=== PATIENT | female | born 1955 | race Caucasian/White ===

== ENCOUNTER → 2020-08-29 10:30 | Outpatient (BNVA) | payer MEDICARE, MEDICAID, SELFPAY | PROVIDERS: Family Provider Family Medicine; PCP Nurse Practitioner Family; Visit Provider Nurse Practitioner Family | DX: E78.2 Mixed hyperlipidemia (principal); E55.9 Vitamin D deficiency, unspecified; M25.519 Pain in unspecified shoulder; M25.511 Pain in right shoulder; G89.29 Other chronic pain; Z68.39 Body mass index [BMI] 39.0-39.9, adult | CPT/HCPCS: 80053; 80061; 82306; 84439; 84443; 85025 ==

== ENCOUNTER → 2020-11-10 15:41 | Outpatient (BNVA) | payer MEDICARE, MEDICAID, SELFPAY | PROVIDERS: Family Provider Family Medicine; PCP Nurse Practitioner Family; Visit Provider Orthopaedic Surgery | DX: Z98.890 Other specified postprocedural states (principal); M18.10 Unilateral primary osteoarthritis of first carpometacarpal joint, unspecified hand; M25.511 Pain in right shoulder; Z46.89 Encounter for fitting and adjustment of other specified devices; M18.11 Unilateral primary osteoarthritis of first carpometacarpal joint, right hand | CPT/HCPCS: 73030; 73130; 97760; L3924 ==

== ENCOUNTER 2020-11-10 16:31 | Outpatient (CLI) | payer MEDICARE, MEDICAID, SELFPAY | END 2020-11-10 16:32 | disposition home or self-care (01) | LOC: SPT 16:32 | PROVIDERS: Family Provider Family Medicine; PCP Nurse Practitioner Family; Visit Provider Orthopaedic Surgery | DX: Z46.89 Encounter for fitting and adjustment of other specified devices (principal); M18.11 Unilateral primary osteoarthritis of first carpometacarpal joint, right hand | CPT/HCPCS: 97760; L3924 ==

== ENCOUNTER → 2021-07-30 16:36 | Outpatient (BNVA) | payer MEDICARE, MEDICAID, SELFPAY | PROVIDERS: Family Provider Family Medicine; PCP Nurse Practitioner Family; Visit Provider Nurse Practitioner Family | DX: R05 Cough (principal); R06.02 Shortness of breath; Z20.822 Contact with and (suspected) exposure to COVID-19 | CPT/HCPCS: 87635 ==

== ENCOUNTER → 2022-05-18 08:45 | Outpatient (BNVA) | payer MEDICARE, MEDICAID, SELFPAY | PROVIDERS: Family Provider Family Medicine; PCP Nurse Practitioner Family; Visit Provider Nurse Practitioner Family | DX: E78.2 Mixed hyperlipidemia (principal); E55.9 Vitamin D deficiency, unspecified | CPT/HCPCS: 80053; 80061; 82306; 84443 ==

== ENCOUNTER 2022-05-30 02:39 | Inpatient (IN) | payer MEDICARE, MEDICAID, SELFPAY ==
[2022-05-30] VITALS (20 sets, daily range): BP systolic 101–129; BP diastolic 55–77; PULSE 65–102; RESP 13–28; TEMP 36.4–37.2; O2SAT 90–96; BMI 32.1
--- NOTE | 2022-05-30 02:50 | XRR_ITS ---
PROCEDURE INFORMATION: Exam: XR Chest Exam date and time: 05/30/2022 2:54 AM Age: 66 years old Clinical indication: Shortness of breath; Patient HX: C/O SOB. History of copd. TECHNIQUE: Imaging protocol: Radiologic exam of the chest. Views: 1 view. COMPARISON: CR XR shoulder RT min 2V* [id number] 11/10/2020 3:47 PM FINDINGS: Lungs: An indistinct density is seen in the right upper hemithorax measuring 1.8 cm. Pleural spaces: There is opacification of the left mid and lower hemithorax likely secondary to probable combined left pleural effusion and superimposed infiltrate. Heart/Mediastinum: Unremarkable. No cardiomegaly. Bones/joints: Unremarkable. XR/XR chest 1V portable [id number] IMPRESSION: 1. The left cardiac border left hemidiaphragm is obscured likely secondary to a large left pleural effusion. Strandy opacities are seen in superimposed over the pleural effusion likely representing atelectasis and/or infiltrates. 2. Indistinct density seen in the right upper hemithorax measuring approximately 1.8 cm. Further evaluation with CT examination of the chest is suggested.
--- NOTE | 2022-05-30 02:50 | ECG_ITS ---
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 Measurements Intervals [place] Rate: 94 P: 45 NC: 144 QRS: -66 QRSD: 125 T: 29 QT: 358 QTc: 450 Interpretive Statements SINUS RHYTHM RIGHT BUNDLE BRANCH BLOCK [120+ ms QRS DURATION, UPRIGHT V1, 40+ ms S IN I/aVL/V4/V5/V6] LEFT ANTERIOR FASCICULAR BLOCK [QRS AXIS <= -45, QR IN I, RS IN II] POSSIBLE SEPTAL MYOCARDIAL INFARCTION , PROBABLY OLD [30 ms Q WAVE IN V1/V2] No previous ECG available for comparison Electronically Signed On 05-30-2022 20:59:00 CDT by Jemma Woods M.D. [email or web address]/[id number] f
--- NOTE | 2022-05-30 02:52 | ED_ITS ---
HPI - SOB/Dyspnea General: Chief Complaint: Shortness of Breath/Dyspnea Stated Complaint: SOB Time Seen by Provider: 05/30/22 02:43 Source: patient Mode of arrival: ambulatory Limitations: no limitations History of Present Illness: HPI Narrative: 66-year-old female has a history of COPD states that she has been having increasing shortness of breath of the last 2 days. States she had an exacerbation last week she has been on prednisone states that tonight she got much worse. She had a cough along with wheezing patient here is tachypneic and hypoxic at this time. She denies any chest pain or fevers. Associated symptoms: Deny abdominal pain, chest pain, fever(s), nausea or vomiting Review of Systems Const: Denies: fever(s), chills, body aches or change in appetite Eyes: Denies: blurry vision or eye discomfort ENMT: Denies: throat pain or dental pain Card: Denies: chest pain Resp: Reports: dyspnea and non-productive cough GI: Denies: abdominal pain, nausea, vomiting or diarrhea : Denies: dysuria Musc: Denies: neck pain or back pain Skin/Breast: Denies: rash Neuro: Denies: headache(s) Psych: Denies: depression Mir/Lymph: Denies: easy bruising All/Imm: Denies: urticaria PFSH ED PFSH: Medical History Anxiety Arthritis of both knees Asthma CAD (coronary artery disease) COPD (chronic obstructive pulmonary disease) Depressed Enrolled in chronic care management History of MRSA infection History of vitamin D deficiency Insomnia Mixed hyperlipidemia Shoulder pain Social History Smoking and tobacco status: current every day smoker cigarettes Packs smoked per day: 1 Alcohol intake: never Physical Exam Const: COMMON NORMALS: patient oriented x3 and healthy appearing GENERAL APPEARANCE: in distress and ill appearing HENMT: COMMON NORMALS: normocephalic and atraumatic HEAD & SCALP: normocephalic and atraumatic Eye: COMMON NORMALS: Equal, round and reactive pupils present and EOMs intact bilaterally PUPIL: Yes Equal, round and reactive pupils present Neck/C-Spine: COMMON NORMALS: full ROM and supple Chest: COMMONS NORMALS: normal inspection of the chest and normal palpation of entire chest wall Resp: COMMON NORMALS: No retractions EFFORT & INSPECTION: Yes tachypneic and Yes labored AUSCULTATION: diminished lung sounds on the left Cardio: COMMON NORMALS: regular rate, regular rhythm and No murmurs present ( Cardio) RATE: regular rate RHYTHM: regular rhythm GI: COMMON NORMALS: Normal to inspection, nondistended, normoactive bowel sounds present, Soft to palpation, non-tender and no masses PALPATION: Yes Soft to palpation Extremity: COMMON NORMALS: normal to inspection and full ROM Neuro: COMMON NORMALS: patient oriented x3, moves all extremities and no focal motor deficits Psych: COMMON NORMALS: mental status grossly normal, Normal thought process present and cooperative THOUGHT PROCESS: Normal thought process present Skin: COMMON NORMALS: no rashes or lesions noted and no wounds GENERAL SKIN EXAM: no rashes or lesions noted Course Vital Signs: Vital signs: Vital Signs Temperature 97.8 F 05/30/22 02:44 Pulse Rate 95 05/30/22 03:06 Respiratory Rate 28 H 05/30/22 04:04 Blood Pressure 124/73 05/30/22 02:44 Pulse Oximetry 93 05/30/22 03:06 MDM - SOB/Dyspnea Medical Decision Making Patient presents here with shortness of breath x-ray and CT found large pleural effusion along with mass concerning for cancer. Spoke to hospitalist will admit as patient is hypoxic here and dyspneic likely from the effusion could be infectious as well patient started on IV antibiotics. Lab Data : 05/30/22 02:58 05/30/22 02:58 Labs/Radiology: Radiology Impressions Chest X-Ray 05/30/22 02:50 IMPRESSION: 1. The left cardiac border left hemidiaphragm is obscured likely secondary to a large left pleural effusion. Strandy opacities are seen in superimposed over the pleural effusion likely representing atelectasis and/or infiltrates. 2. Indistinct density seen in the right upper hemithorax measuring approximately 1.8 cm. Further evaluation with CT examination of the chest is suggested. Chest CT 05/30/22 03:36 IMPRESSION: 1. There is a large left pleural effusion. Strandy and patchy opacities are seen within the left hemithorax superimposed over pleural effusion likely representing atelectasis although infiltrates and pneumonia cannot be entirely excluded. 2. Ill-defined soft tissue attenuation is seen in the upper hemithorax anteriorly on the left worrisome for a pulmonary mass. Measures approximately 6.4 x 5.2 x 4.7 cm. 3. There is a mildly irregular spiculated pulmonary nodularity seen in the right upper lobe that corresponds to the chest radiograph findings measuring 1.4 x 2.0 x 2.3 cm. In view of these findings, consider non-emergent PET/CT, or tissue sampling.(Reference: Daily) 4. Ill-defined hypoattenuation lesions seen within the liver highly suspicious for metastatic disease. Again, consider nonemergent PET-CT imaging. REFERENCES: Daily Benson, et al. Guidelines for Management of Incidental Pulmonary Nodules Detected on CT Images: From the Fleischner Society 2017. Radiology. 2017;284(1):228-243. ADDENDUM: 05/30/22 0433 CRITICAL RESULT: THIS REPORT CONTAINS FINDINGS THAT MAY BE CRITICAL TO PATIENT CARE. The findings were verbally communicated via telephone conference with GABRIELA Licea at 4:31 AM CDT on 05/30/2022. The findings were acknowledged and understood. Laboratory Results WBC 8.2 10^3/uL (4.0-10.0) 05/30/22 02:58 RBC 5.46 10^6/uL (4.1-5.3) H 05/30/22 02:58 Hgb 17.2 g/dL (11.5-15.3) H 05/30/22 02:58 Hct 52.5 % (37.0-47.0) H 05/30/22 02:58 MCV 96.2 fl (81-99) 05/30/22 02:58 MCH 31.5 pg (28.0-34.0) 05/30/22 02:58 MCHC 32.8 g/dL (30.0-36.0) 05/30/22 02:58 RDW 13.1 % (12.1-15.1) 05/30/22 02:58 Plt Count 259 10^3/cmm (130-400) 05/30/22 02:58 MPV 9.5 fL (7.4-10.4) 05/30/22 02:58 Neut % (Auto) 75.1 % 05/30/22 02:58 Lymph % (Auto) 16.6 % 05/30/22 02:58 Jackson % (Auto) 5.5 % 05/30/22 02:58 Eos % (Auto) 1.5 % 05/30/22 02:58 Baso % (Auto) 0.7 % 05/30/22 02:58 Neut # (Auto) 6.16 10^3/uL (1.8-7.7) 05/30/22 02:58 Lymph # (Auto) 1.4 10^3/uL (0.8-4.8) 05/30/22 02:58 Jackson # (Auto) 0.5 10^3/uL (0.2-0.9) 05/30/22 02:58 Eos # (Auto) 0.1 10^3/uL (0.0-0.8) 05/30/22 02:58 Baso # (Auto) 0.1 10^3/uL (0.0-0.1) 05/30/22 02:58 Nucleated RBC % (auto) 0 % 05/30/22 02:58 Nucleated RBCs # 0.0 /100WBC 05/30/22 02:58 Specimen Type Arterial 05/30/22 03:10 Sample Site Radial, left 05/30/22 03:10 ABG pH 7.43 (7.35-7.45) 05/30/22 03:10 ABG pCO2 42.5 mmHg (35-45) 05/30/22 03:10 ABG pO2 63.4 mmHg (80.0-100.0) L 05/30/22 03:10 ABG HCO3 28.3 mmol/L (22-26) H 05/30/22 03:10 ABG Base Excess 3.5 mmol/L (-2.0-2.0) H 05/30/22 03:10 Mihir Test Pos 05/30/22 03:10 Hematocrit 52.7 % (37-47) H 05/30/22 03:10 Hgb O2 Saturation 90.2 % (95-100) L 05/30/22 03:10 Carboxyhemoglobin 3.6 %THgb (0.4-20.1) 05/30/22 03:10 Methemoglobin 0.7 % (0.4-1.5) 05/30/22 03:10 Total Hemoglobin 17.2 g/dL (12-16) H 05/30/22 03:10 O2 Delivery Device Nc 05/30/22 03:10 O2 Liters/Min 3.0 % 05/30/22 03:10 FiO2 32.0 % 05/30/22 03:10 Television Journalist ID [email or web address] 05/30/22 03:10 Sodium 138 mmol/L (136-145) 05/30/22 02:58 Potassium 3.8 mmol/L (3.5-5.1) 05/30/22 02:58 Chloride 101 mmol/L (98-107) 05/30/22 02:58 Carbon Dioxide 26 mmol/L (22-29) 05/30/22 02:58 Anion Gap 14.8 (5-19) 05/30/22 02:58 BUN 16 mg/dL (8-23) 05/30/22 02:58 Creatinine 0.9 mg/dL (0.5-0.9) 05/30/22 02:58 GFR Calculation 62.8 mL/min (90-130) L 05/30/22 02:58 Glucose 118 mg/dL (65-115) H 05/30/22 02:58 Calculated Osmolality 288 mOsm/kg (285-295) 05/30/22 02:58 Calcium 8.9 mg/dL (8.5-10.5) 05/30/22 02:58 Total Bilirubin 0.4 mg/dL (0.15-1.2) 05/30/22 02:58 AST 16 U/L (0-32) 05/30/22 02:58 ALT 13 U/L (0-33) 05/30/22 02:58 Alkaline Phosphatase 102 IU/L (35-105) 05/30/22 02:58 NT-Pro-B Natriuret Pep 262 pg/mL (0-125) H 05/30/22 02:58 Total Protein 6.7 g/dL (6.6-8.7) 05/30/22 02:58 Albumin 3.2 g/dL (3.5-5.2) L 05/30/22 02:58 Globulin 3.5 g/dL (1.3-4.6) 05/30/22 02:58 SARS-CoV-2 Ag (Rapid) Negative (Negative) 05/30/22 03:00 EKG Data EKG 1: I personally reviewed and interpreted this EKG as follows: EKG Interpretation Date: 05/30/22 EKG interpretation time: 02:53 Interpretation: nsr hr [address] or t wave abnormalities qrs 125 qtc 410 Discharge Plan Discharge Patient Disposition: Admitted As Inpatient Clinical Impression: Pleural effusion, Lung mass, Hypoxia Condition: Stable Coding Level of Care Code ED Nuclear Control Room Operator for Chg Fwd Exam Comprehensive
[2022-05-30] MEDS: ipratropium-albuterol 3 mL Neb INHALATION ×4 (03:00→20:41)
[2022-05-30 03:11] LABS: Basophils # 0.1 10^3/uL (0.0-0.1); Basophils % 0.7 %; Eosinophils # 0.1 10^3/uL (0.0-0.8); Eosinophils % 1.5 %; Hematocrit 52.5 % (37.0-47.0); Hemoglobin 17.2 g/dL (11.5-15.3); Lymphocytes # 1.4 10^3/uL (0.8-4.8); Lymphocytes % 16.6 %; Mean Corpuscular HGB Conc 32.8 g/dL (30.0-36.0); Mean Corpuscular Hemoglobin 31.5 pg (28.0-34.0); Mean Corpuscular Volume 96.2 fl (81-99); Mean Platelet Volume 9.5 fL (7.4-10.4); Monocytes # 0.5 10^3/uL (0.2-0.9); Monocytes % 5.5 %; Neutrophils # 6.16 10^3/uL (1.8-7.7); Neutrophils % 75.1 %; Nucleated Red Blood Cells % 0 %; Platelet Count 259 10^3/cmm (130-400); Red Blood Count 5.46 10^6/uL (4.1-5.3); Red Cell Distribution Width 13.1 % (12.1-15.1); White Blood Count 8.2 10^3/uL (4.0-10.0)
[2022-05-30 03:30] LABS: SARS Covid-2 Antigen Negative (Negative)
--- NOTE | 2022-05-30 03:36 | CTR_ITS ---
PROCEDURE INFORMATION: Exam: CT Chest Without Contrast; Diagnostic Exam date and time: 05/30/2022 3:51 AM Age: 66 years old Clinical indication: Shortness of breath; Patient HX: C/O SOB. History of copd. RT lung abnormal density noted on cxr. TECHNIQUE: Imaging protocol: Diagnostic computed tomography of the chest without contrast. Radiation optimization: All CT scans at this facility use at least one of these dose optimization techniques: automated exposure control; mA and/or kV adjustment per patient size (includes targeted exams where dose is matched to clinical indication); or iterative reconstruction. COMPARISON: CR (CHEST, ) 05/30/2022 2:54 AM RADIATION DOSE METRICS: Total DLP (mGy-cm): 638.58 FINDINGS: Lungs: A calcified granuloma seen in the collapsed left lower lobe. An irregular mildly spiculated pulmonary nodularity is seen in the right upper lobe that corresponds to the chest radiograph findings measuring 1.4 x 2.0 x 2.3 cm. Pleural spaces: There is a large left pleural effusion. There are patchy and strandy opacities superimposed over the left pleural effusion compatible with atelectasis and or pneumonia. There is a soft tissue attenuation mass seen in the left upper hemithorax anteriorly that appears partially obscured by the large pleural effusion measuring approximately 5.2 x 4 7 x 6.4 cm. Heart: Unremarkable. No cardiomegaly. No pericardial effusion. Mild coronary artery calcifications Lymph nodes: Unremarkable. No enlarged lymph nodes. Vasculature: Unremarkable. No aortic aneurysm. Liver: There multiple ill-defined hypoattenuation lesions seen within the liver, findings worrisome for metastatic disease. Largest is seen in the right hepatic lobe measuring approximately 3 cm in diameter. Gallbladder and bile ducts: Status post cholecystectomy. Bones/joints: Unremarkable. No acute fracture. Soft tissues: Unremarkable. CT/CT chest wo con [id number] IMPRESSION: 1. There is a large left pleural effusion. Strandy and patchy opacities are seen within the left hemithorax superimposed over pleural effusion likely representing atelectasis although infiltrates and pneumonia cannot be entirely excluded. 2. Ill-defined soft tissue attenuation is seen in the upper hemithorax anteriorly on the left worrisome for a pulmonary mass. Measures approximately 6.4 x 5.2 x 4.7 cm. 3. There is a mildly irregular spiculated pulmonary nodularity seen in the right upper lobe that corresponds to the chest radiograph findings measuring 1.4 x 2.0 x 2.3 cm. In view of these findings, consider non-emergent PET/CT, or tissue sampling.(Reference: Daily) 4. Ill-defined hypoattenuation lesions seen within the liver highly suspicious for metastatic disease. Again, consider nonemergent PET-CT imaging. REFERENCES: Daily Benson, et al. Guidelines for Management of Incidental Pulmonary Nodules Detected on CT Images: From the Fleischner Society 2017. Radiology. 2017;284(1):228-243.
[2022-05-30 03:46] LABS: Alanine Aminotransferase 13 U/L (0-33); Albumin Level 3.2 g/dL (3.5-5.2); Alkaline Phosphatase 102 IU/L (35-105); Anion Gap 14.8 (5-19); Aspartate Amino Transferase 16 U/L (0-32); Blood Urea Nitrogen 16 mg/dL (8-23); Calcium 8.9 mg/dL (8.5-10.5); Carbon Dioxide 26 mmol/L (22-29); Chloride 101 mmol/L (98-107); Globulin 3.5 g/dL (1.3-4.6); Glomerular Filtration Rate 62.8 mL/min (90-130); Glucose 118 mg/dL (65-115); NT Pro B Type Natriuretic Pept 262 pg/mL (0-125); Osmolality Calculated 288 mOsm/kg (285-295); Potassium 3.8 mmol/L (3.5-5.1); Sodium 138 mmol/L (136-145); Total Bilirubin 0.4 mg/dL (0.15-1.2); Total Protein 6.7 g/dL (6.6-8.7)
[2022-05-30] MEDS: ondansetron 2 mg/ML SDV 2 mL 4 MG IVP (04:03)
[2022-05-30] MEDS: morphine 4 mg/mL SDV 1 mL IVP (04:04)
[2022-05-30] MEDS: cefTRIAXone 1,000 MG in sodium chloride 0.9% (plus) 50 ML 100 MG IV (04:28)
[2022-05-30] MEDS: azithromycin 500 MG in sodium chloride 0.9% 250 ML 250 MG IV (04:56)
--- NOTE | 2022-05-30 05:39 | PM.HP ---
Providers/Chief Complaint Admitting Physician: Hamilton Grimaldo Primary Care Provider: Tri Ludwig NP Chief Complaint: SOB History of Present Illness Very pleasant 66-year-old lady with COPD, asthma, CAD, long smoking history, other comorbidities, presented to the hospital for evaluation due to 3 days of shortness of breath, worse in the last night, with cough productive of clear sputum, mild to moderate frontal headache. Shortness of breath worse with exertion. She also reports lower back pain which has been going on for a while. She is not normally on supplemental oxygen. She states at home she uses a nebulizer. In ER she is noted saturating in mid to low 90s on 4 L. ABG 7.43/42.5/63.4. Rapid COVID-19 is negative. She is afebrile, without leukocytosis. Assessment with chest x-ray showed likely large left pleural effusion. Strandy opacities seen superimposed over the pleural effusion likely representing atelectasis and/or infiltrates. Indistinct density in right upper hemithorax measuring approximately 1.8 cm. This was then followed up with CT of the chest which showed large left pleural effusion with stranding and patchy opacities within hemithorax with superimposed lower pleural effusion likely present atelectasis although infiltrates and pneumonia cannot be excluded. Also ill-defined soft tissue attenuation in upper hemithorax on the left worrisome for pulmonary mass measuring 6.4 x 5.2 x 4.7 cm Also mildly irregular spiculated pulmonary nodularity in the right upper lobe corresponds to the chest radiograph finding measuring 1.4 x 2 x 2.3 cm. Also noted ill-defined hypoattenuation lesions within the liver highly suspicious for metastatic disease. Full details in the report. Review of Systems Const: Denies: fever(s), chills, body aches or malaise Eyes: Denies: change in vision, eye discomfort or eye redness ENMT: Denies: throat pain, oral sores or ear or mastoid pain Card: Reports: swelling of feet/ankles; Denies: chest pain, edema, pre-syncope or dyspnea on exertion Resp: Reports: dyspnea and productive cough; Denies: change in phlegm color or hemoptysis GI: Denies: abdominal pain, nausea, vomiting, diarrhea, constipation, hematochezia or melena : Denies: flank pain, urinary frequency or hematuria Musc: Reports: back pain; Denies: joint swelling or joint redness Skin/Breast: Denies: rash or new lesions Neuro: Reports: headache(s); Denies: numbness in extremities, weakness in extremities, dizziness, confusion or seizure-like activity Endo: Denies: polyuria or polydipsia Mir/Lymph: Denies: easy bleeding or tender lymph nodes All/Imm: Denies: urticaria or tongue swelling Medications/Allergies Home Medications Medication Instructions Recorded Confirmed Last Taken Type albuterol sulfate 90 mcg/actuation 2 puff INHALATION Q6H PRN 02/05/20 05/17/22 Unknown History aerosol inhaler (Ventolin HFA) coenzyme Q10 100 mg capsule 100 mg PO DAILY 02/05/20 05/17/22 Unknown History (CoQ-10) omega-3 fatty acids 1,000 mg 1,000 mg PO DAILY 02/05/20 05/17/22 Unknown History capsule (Fish Oil Concentrate) albuterol sulfate 2.5 mg (3 mL) INHALATION Q4H PRN 07/30/21 05/17/22 Unknown Rx #90 ml ibuprofen 800 mg tablet 800 mg PO Q8H PRN #90 tab 10/22/21 05/17/22 Unknown Rx magnesium citrate 300 ml PO DAILY PRN #296 ml 05/14/22 05/17/22 Unknown Rx omeprazole 40 mg capsule,delayed 40 mg PO DAILY 56 Days #60 cap 05/14/22 05/17/22 Unknown Rx release tiotropium 2.5 mcg-olodaterol 2.5 2 puff INHALATION DAILY #4 g 05/14/22 05/17/22 Unknown Rx mcg/actuation mist for inhalation (Stiolto Respimat) cholecalciferol (vitamin D3) 125 125 mcg PO DAILY #90 cap 05/21/22 Unknown Rx mcg (5,000 unit) capsule dapagliflozin 10 mg tablet 10 mg PO QAM #90 tab 05/21/22 Unknown Rx (Farxiga) ezetimibe 10 mg tablet 10 mg PO BEDTIME 05/30/22 05/30/22 Unknown History prednisone 10 mg tablet 10 mg PO DAILY 05/30/22 05/30/22 Unknown History rosuvastatin 40 mg tablet 40 mg PO BEDTIME 05/30/22 05/30/22 Unknown History Allergies Allergy/AdvReac Type Severity Reaction Status Date / Time celecoxib [From Celebrex] Allergy Intermediate ALGY-Rash Verified 05/17/22 13:26 Sulfa (Sulfonamide Allergy Intermediate ALGY-Rash Verified 05/17/22 13:26 Antibiotics) PFSH Acute PFSH: Medical History Anxiety Arthritis of both knees Asthma CAD (coronary artery disease) COPD (chronic obstructive pulmonary disease) Depressed Enrolled in chronic care management GERD (gastroesophageal reflux disease) History of MRSA infection History of vitamin D deficiency HLD (hyperlipidemia) Insomnia Mixed hyperlipidemia Shoulder pain Smoking addiction Surgical History H/O lumpectomy History of bilateral tubal ligation History of D&C History of knee surgery Hx of cholecystectomy Hx of tonsillectomy Family History Father CAD (coronary artery disease) HI (mitral incompetence) COPD (chronic obstructive pulmonary disease) Mother Cancer Social History Smoking and tobacco status: current every day smoker cigarettes Packs smoked per day: 1 Alcohol intake: never Substance/Drug Use: never Lives independently: Yes Household members: spouse Marital status: Vitals/I&O/Wt Last Vital Signs Temp 97.8 F 05/30/22 02:44 Pulse 84 05/30/22 04:50 Resp 26 H 05/30/22 04:50 BP 126/66 05/30/22 04:50 Pulse Ox 94 05/30/22 04:50 05/29/22 05/29/22 05/30/22 14:59 22:59 06:59 Intake Total 50 / 50 Balance 50 / 50 Weight last 48 hrs Weight 72.121 kg Physical Exam Narrative: at bedside Const: COMMON NORMALS: alert GENERAL APPEARANCE: cooperative NUTRITIONAL APPEARANCE: obese ORIENTATION/CONSCIOUSNESS: Yes awake HENMT: COMMON NORMALS: normocephalic, EAC's normal, Normal external nose present and moist oral mucous membranes HEAD & SCALP: normocephalic NOSE: Normal external nose present EXTERNAL AUDITORY CANAL: EAC's normal Neck/C-Spine: COMMON NORMALS: no meningeal signs Chest: CHEST: Yes Symmetrical chest wall rise Resp: COMMON NORMALS: clear to auscultation bilaterally AUSCULTATION: diminished lung sounds on the left in the lower lung matias Cardio: COMMON NORMALS: regular rate, regular rhythm and No murmurs present (Cardio) RATE: regular rate RHYTHM: regular rhythm GI: COMMON NORMALS: Normal to inspection, nondistended, normoactive bowel sounds present, Soft to palpation and non-tender PALPATION: Yes Soft to palpation Extremity: GENERAL: Yes edema (1+) Neuro: COMMON NORMALS: moves all extremities SENSORIUM/ORIENTATION: Yes alert MENINGEAL SIGNS: Yes no meningeal signs Psych: COMMON NORMALS: mental status grossly normal Skin: COMMON NORMALS: no wounds RASHES: no rashes Data : 05/30/22 02:58 05/30/22 02:58 Micro: Microbiology 05/30/22 04:31 Blood Culture - Preliminary Blood SPECIMEN COLLECTED 05/30/22 04:21 Blood Culture - Preliminary Blood SPECIMEN COLLECTED A&P Assessment and plan (1) Acute respiratory failure with hypoxia: With shortness of breath, cough, clear sputum production, hypoxia on presentation, ABG 7.43/42.5/63.4 on 3 L nasal cannula. Currently on 4 L saturations 94%. Multifactorial acute respiratory failure with hypoxia with large left-sided pleural effusion. Atelectasis. Cannot exclude also possible superimposed pneumonia. Lung lesions suspicious for new diagnosis of malignancy. Rapid COVID-19 is negative. Continue oxygen support. She and her are agreeable to consultation and additional evaluation with pulmonology. Discussed with pulmonology, for now continue to antibiotics for possible infection and monitor her response and condition with thoracentesis possibly today or tomorrow, then if infection is under bronchoscopy could possibly be done on Tuesday. She is not on anticoagulation. For now we will request sputum culture, urine bacterial antigens. MRSA PCR. Continue empiric antibiotics for possible pneumonia with ceftriaxone, azithromycin. With possible asthma and COPD exacerbation as she is reported to have had wheezing. Cough productive of sputum which is clear. Continue IV steroids for now. Breathing treatments. Discussed findings with her and her . They had a few questions but certainly it is a lot to process. Encouraged them to ask more if any, as her condition and diagnostic process and management evolve. DVT prophylaxis with SCD for now, anticoagulation for now not yet started pending possible procedures. Status: Acute (2) Pleural effusion: Large left pleural effusion, possibly related to possible metastatic lung malignancy. Possibly parapneumonic. As above. Check TSH. Status: Acute (3) Lung mass: New lung lesions suspicious for possible malignancy, with liver lesions suspicious for possibly metastatic disease. Additional evaluation as above. Status: Acute (4) COPD (chronic obstructive pulmonary disease): Possibly with exacerbation due to cough, dyspnea, production of clear sputum. Continue IV steroids for now. Taper off based on response. Status: Acute (5) Asthma: Possible exacerbation with reported wheezing, although appears to have improved with breathing treatment as I did not appreciate wheezing during my visit. Continue as above. Status: Acute (6) Liver lesion: Incidentally noted liver lesions, concerning for possible metastatic disease. Status: Acute (7) Smoking addiction: Encourage cessation. Nicotine replacement as needed. Status: Acute Plan Headache: Tylenol as needed. Additional work-up of possible metastatic lung malignancy. Lower back pain: Again will need additional evaluation for possible metastatic disease. Symptomatic management for now. Lidocaine patch. Tylenol. Capsaicin as needed. CAD Depression HLD Arthritis Other comorbidities. Attestations Medical Necessity Statement*: Admission of over 2 midnights is anticipated for assessment and management of acute respiratory failure with hypoxia, large pleural effusion, possible pneumonia, COPD and asthma exacerbation, new lesions suspicious for malignancy, possibly metastatic lung cancer. Coding Level of Care Code Acute Credit Department Manager for Echo Nicolas Diagnoses Pleural effusion J90 Acute respiratory failure with hypoxia J96.01 Lung mass R91.8 COPD (chronic obstructive pulmonary disease) J44.9 Asthma J45.909 Smoking addiction F17.200 Liver lesion K76.9
[2022-05-30 06:41] LABS: Thyroid Stimulating Hormone 2.99 uIU/mL (0.27-4.20)
[2022-05-30] MEDS: pantoprazole DR 40 mg Tablet PO (09:23)
[2022-05-30] MEDS: lidocaine 5% Patch 1 PATCH TOPICAL (09:23)
--- NOTE | 2022-05-30 14:28 | PM.MISC ---
Miscellaneous Note Purpose of Documentation: Mini progress note Note: Patient seen today and examined. She is on 2 L nasal cannula. Lungs clear to auscultation bilaterally with mild rhonchi at bases. She is a smoker. Had history of lung cancer in her mother. There is evidence of metastatic disease on her CAT scan. Plan for bronchoscopy and thoracentesis in a.m. Pulmonology already on board. We will recheck labs in AM. N.p.o. at midnight today. Daughter at bedside updated. Rest of management as per history and physical document. Patient comfortable at this time and has no concerns or complaints.
[2022-05-30 15:51] LABS: ABG PH Result 7.43 (7.35-7.45); Arterial Blood Gas Hematocrit 52.6 % (37-47); Base Excess ABG 3.7 mmol/L (-2.0-2.0); HCO3 ABG 28.6 mmol/L (22-26); Methemoglobin 0.8 % (0.4-1.5); PO2 ABG 64.9 mmHg (80.0-100.0)
[2022-05-30 15:52] LABS: Blood Gas Allen Test Pos; Blood Gas Sample Site Radial, left; Blood Gas Sample Type Arterial; Carboxyhemoglobin 3.6 %THgb (0.4-20.1); Oxygen Device NC; Total Hemoglobin 17.2 g/dL (12-16)
[2022-05-30] MEDS: atorvastatin 40 mg Tablet 80 MG PO (20:57)
[2022-05-30] MEDS: HYDROcodone-acetaminophen 5-325 mg Tablet 1 TAB PO (20:57)
[2022-05-30] MEDS: ezetimibe 10 mg Tablet PO (20:57)
[2022-05-31] VITALS (11 sets, daily range): BP systolic 104–135; BP diastolic 57–71; PULSE 71–96; RESP 15–22; TEMP 35.8–36.7; O2SAT 87–96
[2022-05-31] MEDS: azithromycin 500 MG in sodium chloride 0.9% 250 ML 250 MG IV (02:51)
[2022-05-31] MEDS: cefTRIAXone 1,000 MG in sodium chloride 0.9% (plus) 50 ML 100 MG IV (02:53)
[2022-05-31] MEDS: ipratropium-albuterol 3 mL Neb INHALATION ×4 (03:28→21:08)
[2022-05-31 04:48] LABS: Basophils % 0.1 %; Hemoglobin 15.6 g/dL (11.5-15.3); Lymphocytes # 0.6 10^3/uL (0.8-4.8); Lymphocytes % 5.6 %; Mean Corpuscular HGB Conc 31.2 g/dL (30.0-36.0); Mean Corpuscular Volume 99.2 fl (81-99); Mean Platelet Volume 9.8 fL (7.4-10.4); Monocytes # 0.3 10^3/uL (0.2-0.9); Monocytes % 3.1 %; Neutrophils % 90.5 %; Nucleated Red Blood Cells % 0 %; Platelet Count 247 10^3/cmm (130-400); Red Blood Count 5.04 10^6/uL (4.1-5.3); White Blood Count 10.3 10^3/uL (4.0-10.0)
[2022-05-31 05:14] LABS: Alanine Aminotransferase 16 U/L (0-33); Albumin Level 3.2 g/dL (3.5-5.2); Alkaline Phosphatase 104 IU/L (35-105); Anion Gap 14.4 (5-19); Aspartate Amino Transferase 14 U/L (0-32); Blood Urea Nitrogen 18 mg/dL (8-23); Calcium 9.3 mg/dL (8.5-10.5); Carbon Dioxide 28 mmol/L (22-29); Chloride 102 mmol/L (98-107); Globulin 3.2 g/dL (1.3-4.6); Glucose 115 mg/dL (65-115); Osmolality Calculated 293 mOsm/kg (285-295); Potassium 4.4 mmol/L (3.5-5.1); Sodium 140 mmol/L (136-145); Total Bilirubin 0.2 mg/dL (0.15-1.2); Total Protein 6.4 g/dL (6.6-8.7)
[2022-05-31] MEDS: pantoprazole DR 40 mg Tablet PO (08:22)
[2022-05-31] MEDS: acetaminophen 325 mg Tablet 650 MG PO (08:22)
[2022-05-31] MEDS: lidocaine 5% Patch 1 PATCH TOPICAL ×2 (08:24→22:40)
--- NOTE | 2022-05-31 09:29 | US_ITS ---
WS: [id number] ULTRASOUND-GUIDED THORACENTESIS CLINICAL INFORMATION: lung ca with lef plural effusion COMPARISON: None. PROCEDURE: Informed consent: The risks, benefits, and alternatives of the procedure were discussed with the andrea ent. Verbal and written consent was obtained. Timeout: A timeout was performed to confirm the correct patient, procedure, and site. Site: LEFT chest Preparation: A suitable skin site was identified. The patient was prepped and draped in usual sterile fashion. Lidocaine 1% was used for local anesthesia. Catheter: 4 Italian One-Step catheter. Fluid Volume: 1000 ml Color: Clear yellow 50 cc sent to the laboratory for further analysis. Complications: None No pneumothorax on the postthoracentesis radiograph. US/ thoracentesis [id number] IMPRESSION: Uncomplicated ultrasound-guided thoracentesis.
--- NOTE | 2022-05-31 09:53 | PC.CHAP ---
Pastoral Care Encounter/Spiritual Assessment Type of Contact [] Declined cinnamon grinder visit [] Patient/Family/Request visit [] Outpatient visit [] Follow-up visit [] Physician referral [] Code/Alert [x] Routine visit [] Staff referral [] Actively dying [] Patient sleeping [] Family support [] [] Out of room [] Palliative care [] [] Receiving care in room [] Pre-surgical visit [] Trauma [] Long length of stay [] ICU visit [] Other: Relational/Emotional Strength [x] Patient feels connected with others/family/visitors/staff [] Distress [] Loneliness/isolation [] Abandonment Spirituality of Patient [x] Person of Prabha [] Attends Restorationism of their Prabha [x] Believes in Prayer [] Reads Bible or Moravian materials [] There are Spiritual issues to be addressed Unbundler Interventions [x] Prayer [x] Active listening [x] Non-anxious presence [] Spiritual/emotional support [] Crisis/trauma care [] Spiritual counseling [] Bereavement support [] Provided bereavement packet [] Provided Bible/devotional materials [] Provided toy/stuffed animal, coloring book to patient or family member [] Provided Communion [] Anointing/[place] [] Salvation [x] Completed spiritual assessment [] Other: Impact on Illness or Injury [] Angry [] Fearful [] Anxious [] Often cries [] Exhaustion [] Unable to work [] Unable to attend adventism [] Unable to walk/stand [] Unable to read [] Unable to drive [] Unable to eat/drink [] Unable to sleep [] Unable to be with family [] Patient intubated [] Other: Summary Time spent with patient 10 min
[2022-05-31 11:58] LABS: INR 0.95 (0.8-1.2)
[2022-05-31] MEDS: CLONazepam 0.5 mg Tablet PO (12:12)
[2022-05-31] MEDS: docusate sodium 100 mg Capsule PO ×2 (12:12→18:05)
[2022-05-31] MEDS: polyethylene glycol 3350 Pkt 17 gm PO (12:14)
--- NOTE | 2022-05-31 13:01 | P.PN_ITS ---
Subjective Subjective: Patient was seen this morning, daughter is at bedside, she sitting up to the side of the bed, complaining of shortness of breath, is on 3 L, IN detail discussed patient's pleural effusion, concerns for lung malignancy on her CT scan, discussed the need for tissue diagnosis, she also has a large pleural effusion with adjacent lung changes concerning for pneumonia discussed plans on thoracocentesis, potentially avoiding bronchoscopy if cancer cells can be identified in her pleural fluid, discussed bronchoscopy, daughter and patient voiced understanding, all questions answered, agreed to proceed Vitals/I&O/Wt Last Vital Signs Temp 98.1 F 05/31/22 07:59 Pulse 75 05/31/22 08:20 Resp 20 H 05/31/22 08:16 BP 115/71 05/31/22 07:59 Pulse Ox 91 05/31/22 08:16 05/30/22 05/31/22 05/31/22 22:59 06:59 14:59 Intake Total 240 / 740 300 / 300 Output Total 500 / 500 Balance 240 / 740 -500 / 240 300 / 300 Weight last 48 hrs Weight 89.993 kg Weight 72.121 kg Physical Exam Const: COMMON NORMALS: no acute distress and patient oriented x3 Resp: COMMON NORMALS: normal respiratory effort, No retractions, No use of accessory muscles and clear to auscultation bilaterally AUSCULTATION: clear to auscultation bilaterally Cardio: COMMON NORMALS: regular rate, regular rhythm, S1 normal heart sound present and S2 normal heart sound present RATE: regular rate RHYTHM: regular rhythm HEART SOUNDS: S1 normal heart sound present and S2 normal heart sound present GI: COMMON NORMALS: Normal to inspection, nondistended, normoactive bowel sounds present, Soft to palpation and non-tender PALPATION: Yes Soft to palpation Extremity: COMMON NORMALS: no pedal edema Neuro: COMMON NORMALS: patient oriented x3 Psych: COMMON NORMALS: mental status grossly normal Data : 05/31/22 03:55 05/31/22 03:55 Micro: Microbiology 05/30/22 04:31 Blood Culture - Preliminary Blood NEGATIVE TO DATE 05/30/22 04:21 Blood Culture - Preliminary Blood NEGATIVE TO DATE 05/30/22 10:32 MRSA Culture - Final Nose 05/30/22 12:53 Bacterial Antigens - Final Urine,Voided 05/30/22 12:53 Legionella Urinary Antigen - Final Urine,Voided A&P Assessment and plan (1) Acute respiratory failure with hypoxia: With shortness of breath, cough, clear sputum production, hypoxia on presentation, ABG 7.43/42.5/63.4 on 3 L nasal cannula. Currently on 4 L saturations 94%. Multifactorial acute respiratory failure with hypoxia with large left-sided pleural effusion. Atelectasis. Cannot exclude also possible superimposed pneumonia. Lung lesions suspicious for new diagnosis of malignancy. Rapid COVID-19 is negative. Continue oxygen support. Discussed with pulmonology, for now continue to antibiotics for possible infection and monitor her response and condition with thoracentesis possibly today or tomorrow, then if infection is under bronchoscopy could possibly be done on Tuesday. She is not on anticoagulation. For now we will request sputum culture, urine bacterial antigens. MRSA PCR. Continue empiric antibiotics for possible pneumonia with ceftriaxone, azithromycin. With possible asthma and COPD exacerbation as she is reported to have had wheezing. Cough productive of sputum which is clear. Continue IV steroids for now. Breathing treatments. Discussed findings with her and her . They had a few questions but certainly it is a lot to process. Encouraged them to ask more if any, as her condition and diagnostic process and management evolve. Proceeding with thoracocentesis Bronchoscopy pending pleural fluid analysis DVT prophylaxis with SCD for now, anticoagulation for now not yet started pending possible procedures. Status: Acute (2) Pleural effusion: Large left pleural effusion, possibly related to possible metastatic lung malignancy. Possibly parapneumonic. As above. Status: Acute (3) Lung mass: New lung lesions suspicious for possible malignancy, with liver lesions suspicious for possibly metastatic disease. Additional evaluation as above. Status: Acute (4) COPD (chronic obstructive pulmonary disease): Possibly with exacerbation due to cough, dyspnea, production of clear sputum. Continue IV steroids for now. Taper off based on response. Status: Acute (5) Asthma: Possible exacerbation with reported wheezing, although appears to have improved with breathing treatment as I did not appreciate wheezing during my visit. Continue as above. Status: Acute (6) Liver lesion: Incidentally noted liver lesions, concerning for possible metastatic disease. Status: Acute (7) Smoking addiction: Encourage cessation. Nicotine replacement as needed. Status: Acute Plan Headache: Tylenol as needed. Additional work-up of possible metastatic lung malignancy. Lower back pain: Again will need additional evaluation for possible metastatic disease. Symptomatic management for now. Lidocaine patch. Tylenol. Capsaicin as needed. CAD Depression HLD Arthritis Other comorbidities. Attestations Medical Necessity Statement*: Patient requires hospitalization for shortness of breath multifactorial requiring thoracocentesis, IV antibiotics, steroids Coding Level of Care Code Acute Internet Sales Manager for Chg Fwd Diagnoses Acute respiratory failure with hypoxia J96.01 Pleural effusion J90 Lung mass R91.8 COPD (chronic obstructive pulmonary disease) J44.9 Asthma J45.909 Liver lesion K76.9 Smoking addiction F17.200
--- NOTE | 2022-05-31 14:12 | XR_ITS ---
WS: [id number] Exam: XR chest 1V portable [id number] Date/Time of Exam: 05/31/2022 2:15 PM Reason For Exam: post thoracentesis Comparison 05/30/2022. Decreased left-sided pleural effusion secondary to thoracentesis. No pneumothorax is seen. Soft tissu e mass seen at the left suprahilar region that may represent atelectasis or pulmonary neoplasm. Conso lidation of lung parenchyma could have similar appearance. Residual left-sided pleural effusion. A 2 cm spiculated nodule is seen in the upper lobe of the right lung. Regional bony elements are intact. The heart does not appear to be enlarged. Anchoring screws in both proximal humeri. XR/XR chest 1V portable [id number] IMPRESSION: 1. Decreased left pleural effusion secondary to thoracentesis. No pneumothorax. 2. Soft tissue density seen at the left suprahilar region that may represent at electatic lung or a mass. 3. Spiculated nodule seen in the upper lobe of the right lung.
[2022-05-31 15:18] LABS: Color, Pleural Fluid Amber (Pale Yellow)
[2022-05-31 15:19] LABS: Appearance, Pleural Fluid CLOUDY (CLEAR)
[2022-05-31 15:20] LABS: Mononuclear %, Pleural Fluid 91 %; Polynuclear Cells, Pleural % 9 %
[2022-05-31 15:24] LABS: Creatinine Body Fluid 0.83 (0.5-0.9); Pleural Fluid Albumin 2.3 g/dL; Total Protein Pleural Fluid 3.8 g/dL; Triglycerides, Pleural Fluid 49 mg/dL
[2022-05-31 15:25] LABS: LDH Pleural Fluid 489 U/L
[2022-05-31 16:19] LABS: PATH Referal YES
[2022-05-31 16:21] LABS: Cyto Order Verification Order Verified
[2022-05-31] MEDS: ezetimibe 10 mg Tablet PO (22:38)
[2022-05-31] MEDS: atorvastatin 40 mg Tablet 80 MG PO (22:38)
[2022-06-01] VITALS (10 sets, daily range): BP systolic 122–136; BP diastolic 70–79; PULSE 65–89; RESP 17–20; TEMP 36.6–36.7; O2SAT 86–97; BMI 40.0
[2022-06-01] MEDS: ipratropium-albuterol 3 mL Neb INHALATION ×2 (04:34→08:40)
[2022-06-01 04:58] LABS: Basophils % 0.1 %; Hematocrit 52.5 % (37.0-47.0); Hemoglobin 16.8 g/dL (11.5-15.3); Lymphocytes # 1.2 10^3/uL (0.8-4.8); Lymphocytes % 9.1 %; Mean Corpuscular Volume 96.9 fl (81-99); Mean Platelet Volume 9.7 fL (7.4-10.4); Monocytes # 0.4 10^3/uL (0.2-0.9); Monocytes % 3.4 %; Neutrophils # 10.92 10^3/uL (1.8-7.7); Neutrophils % 86.7 %; Nucleated Red Blood Cells % 0 %; Platelet Count 246 10^3/cmm (130-400); Red Blood Count 5.42 10^6/uL (4.1-5.3); Red Cell Distribution Width 12.8 % (12.1-15.1); White Blood Count 12.6 10^3/uL (4.0-10.0)
[2022-06-01 05:22] LABS: Alanine Aminotransferase 18 U/L (0-33); Albumin Level 3.5 g/dL (3.5-5.2); Alkaline Phosphatase 103 IU/L (35-105); Anion Gap 13.8 (5-19); Aspartate Amino Transferase 14 U/L (0-32); Blood Urea Nitrogen 21 mg/dL (8-23); Calcium 9.5 mg/dL (8.5-10.5); Carbon Dioxide 32 mmol/L (22-29); Chloride 99 mmol/L (98-107); Globulin 3.1 g/dL (1.3-4.6); Glomerular Filtration Rate 62.8 mL/min (90-130); Glucose 110 mg/dL (65-115); Osmolality Calculated 294 mOsm/kg (285-295); Potassium 4.8 mmol/L (3.5-5.1); Sodium 140 mmol/L (136-145); Total Bilirubin 0.2 mg/dL (0.15-1.2); Total Protein 6.6 g/dL (6.6-8.7)
[2022-06-01] MEDS: cefTRIAXone 1,000 MG in sodium chloride 0.9% (plus) 50 ML 50 MG IV (05:32)
[2022-06-01] MEDS: azithromycin 500 MG in sodium chloride 0.9% 250 ML 250 MG IV (05:33)
[2022-06-01] MEDS: polyethylene glycol 3350 Pkt 17 gm PO (08:34)
[2022-06-01] MEDS: docusate sodium 100 mg Capsule PO (08:34)
[2022-06-01] MEDS: pantoprazole DR 40 mg Tablet PO (08:34)
[2022-06-01] MEDS: lidocaine 5% Patch 1 PATCH TOPICAL (08:35)
--- NOTE | 2022-06-01 14:03 | P.DS_ITS ---
Discharge Providers Date of Admission: 05/30/22 04:32 Date of Discharge: June 01, 2022 Attending Provider at Admission: Hamilton Grimaldo Attending Provider at Discharge: Ruperto Woods MD Primary Care Provider: Tri Ludwig NP Diagnoses at Discharge Discharge Diagnosis (1) Acute respiratory failure with hypoxia: Status: Acute (2) Pleural effusion: Status: Acute (3) Lung mass: Status: Acute (4) COPD (chronic obstructive pulmonary disease): Status: Acute (5) Asthma: Status: Acute (6) Liver lesion: Status: Acute (7) Smoking addiction: Status: Acute Reason for Visit Reason for Visit: SOB Hospital Course Hospital Course This is a 66-year-old female with a past medical history of COPD, smoking, asthma, anxiety, depression, who presents to [facility] for shortness of breath Patient was admitted to [facility] for acute respiratory failure with hypoxia secondary to COPD exacerbation, possible underlying pneumonia, received broad-spectrum antibiotic, steroid therapy, oxygen therapy. Discharged home with steroid burst, doxycycline, oxygen therapy with close follow-up with primary care provider as outpatient Patient was found to have a large left pleural effusion, status post thoracocentesis, 1 L drained, patient clinically improved in terms of her shortness of breath Patient was found to have 1. There is a large left pleural effusion. Strandy and patchy opacities are seen within the left hemithorax superimposed over pleural effusion likely representing atelectasis although infiltrates and pneumonia cannot be entirely excluded. 2. Ill-defined soft tissue attenuation is seen in the upper hemithorax anteriorly on the left worrisome for a pulmonary mass. Measures approximately 6.4 x 5.2 x 4.7 cm. 3. There is a mildly irregular spiculated pulmonary nodularity seen in the right upper lobe that corresponds to the chest radiograph findings measuring 1.4 x 2.0 x 2.3 cm. In view of these findings, consider non-emergent PET/CT, or tissue sampling.(Reference: Daily) 4. Ill-defined hypoattenuation lesions seen within the liver highly suspicious for metastatic disease. Again, consider nonemergent PET-CT imaging. -Findings concerning for lung cancer, with radiographic evidence of metastasis -She underwent thoracocentesis, findings of thoracocentesis revealed atypical cells, positive for malignancy, metastatic malignancy, further immunohistochemic al stains and ancillary studies have been performed pending results -I discussed with patient her findings, she voiced understanding, all questions answered, agreed to proceed for further evaluation, testing, and consideration of treatment -Plan is for her to follow-up with hematology oncology within a week, follow-up to determine what type of lung malignancy she has, further testing including PET scan, she also follow-up with pulmonary in 1 week Physical Exam Const: COMMON NORMALS: no acute distress and patient oriented x3 Resp: COMMON NORMALS: normal respiratory effort, No retractions, No use of accessory muscles and clear to auscultation bilaterally AUSCULTATION: clear to auscultation bilaterally Cardio: COMMON NORMALS: regular rate, regular rhythm, S1 normal heart sound present and S2 normal heart sound present RATE: regular rate RHYTHM: regular rhythm HEART SOUNDS: S1 normal heart sound present and S2 normal heart sound present GI: COMMON NORMALS: Normal to inspection, nondistended, normoactive bowel chapo nds present, Soft to palpation and non-tender PALPATION: Yes Soft to palpation Extremity: COMMON NORMALS: no pedal edema Neuro: COMMON NORMALS: patient oriented x3 Psych: COMMON NORMALS: mental status grossly normal Discharge Data Studies Completed and Pending Completed Studies During Hospitalization Category Date Time Status CT chest wo con [id number] Urgent Cat Scan 05/30/22 03:36 Completed XR chest 1V portable [id number] Stat Exams 05/31/22 14:12 Completed XR chest 1V portable [id number] Urgent Exams 05/30/22 02:50 Completed US thoracentesis [id number] Routine Ultrasound 05/31/22 09:29 Completed Pending at discharge Category Date Time Status Blood Culture Stat Lab 05/30/22 04:31 Results Body Fluid Culture & GS Routine Lab 05/31/22 13:45 Results Complete Blood Count w/Auto AM LABS Lab 06/02/22 04:00 Ordered Comprehensive Metabolic Panel AM LABS Lab 06/02/22 04:00 Ordered Mycobacteria, Culture w/Fluor Routine Lab 05/31/22 13:45 Received Sputum Culture and Gram Stain Routine Lab 05/30/22 06:04 Uncollected Cytology [PTH] Routine Pth 05/31/22 09:29 Received Radiology Impressions Chest CT 05/30/22 03:36 IMPRESSION: 1. There is a large left pleural effusion. Strandy and patchy opacities are seen within the left hemithorax superimposed over pleural effusion likely representing atelectasis although infiltrates and pneumonia cannot be entirely excluded. 2. Ill-defined soft tissue attenuation is seen in the upper hemithorax anteriorly on the left worrisome for a pulmonary mass. Measures approximately 6.4 x 5.2 x 4.7 cm. 3. There is a mildly irregular spiculated pulmonary nodularity seen in the right upper lobe that corresponds to the chest radiograph findings measuring 1.4 x 2.0 x 2.3 cm. In view of these findings, consider non-emergent PET/CT, or tissue sampling.(Reference: Daily) 4. Ill-defined hypoattenuation lesions seen within the liver highly suspicious for metastatic disease. Again, consider nonemergent PET-CT imaging. REFERENCES: Daily Benson, et al. Guidelines for Management of Incidental Pulmonary Nodules Detected on CT Images: From the Fleischner Society 2017. Radiology. 2017;284(1):228-243. ADDENDUM: 05/30/22 0433 CRITICAL RESULT: THIS REPORT CONTAINS FINDINGS THAT MAY BE CRITICAL TO PATIENT CARE. The findings were verbally communicated via telephone conference with GABRIELA Licea at 4:31 AM CDT on 05/30/2022. The findings were acknowledged and understood. Thoracentesis Ultrasound 05/31/22 09:29 IMPRESSION: Uncomplicated ultrasound-guided thoracentesis. Chest X-Ray 05/31/22 14:12 IMPRESSION: 1. Decreased left pleural effusion secondary to thoracentesis. No pneumothorax. 2. Soft tissue density seen at the left suprahilar region that may represent atelectatic lung or a mass. 3. Spiculated nodule seen in the upper lobe of the right lung. Laboratory Results WBC 12.6 10^3/uL (4.0-10.0) H 06/01/22 04:32 RBC 5.42 10^6/uL (4.1-5.3) H 06/01/22 04:32 Hgb 16.8 g/dL (11.5-15.3) H 06/01/22 04:32 Hct 52.5 % (37.0-47.0) H 06/01/22 04:32 MCV 96.9 fl (81-99) 06/01/22 04:32 MCH 31.0 pg (28.0-34.0) 06/01/22 04:32 MCHC 32.0 g/dL (30.0-36.0) 06/01/22 04:32 RDW 12.8 % (12.1-15.1) 06/01/22 04:32 Plt Count 246 10^3/cmm (130-400) 06/01/22 04:32 MPV 9.7 fL (7.4-10.4) 06/01/22 04:32 Neut % (Auto) 86.7 % 06/01/22 04:32 Lymph % (Auto) 9.1 % 06/01/22 04:32 Davis % (Auto) 3.4 % 06/01/22 04:32 Eos % (Auto) 0.0 % 06/01/22 04:32 Baso % (Auto) 0.1 % 06/01/22 04:32 Neut # (Auto) 10.92 10^3/uL (1.8-7.7) H 06/01/22 04:32 Lymph # (Auto) 1.2 10^3/uL (0.8-4.8) 06/01/22 04:32 Davis # (Auto) 0.4 10^3/uL (0.2-0.9) 06/01/22 04:32 Eos # (Auto) 0.0 10^3/uL (0.0-0.8) 06/01/22 04:32 Baso # (Auto) 0.0 10^3/uL (0.0-0.1) 06/01/22 04:32 Nucleated RBC % (auto) 0 % 06/01/22 04:32 Total Counted Not Reportable 05/31/22 13:45 Nucleated RBCs # 0.0 /100WBC 06/01/22 04:32 Differential Comment Cancelled 05/31/22 13:45 PT 13.00 SECONDS (12.1-14.9) 05/31/22 11:15 INR 0.95 (0.8-1.2) 05/31/22 11:15 Specimen Type Arterial 05/30/22 03:10 Sample Site Radial, left 05/30/22 03:10 ABG pH 7.43 (7.35-7.45) 05/30/22 03:10 ABG pCO2 43.0 mmHg (35-45) 05/30/22 03:10 ABG pO2 64.9 mmHg (80.0-100.0) L 05/30/22 03:10 ABG HCO3 28.6 mmol/L (22-26) H 05/30/22 03:10 ABG Base Excess 3.7 mmol/L (-2.0-2.0) H 05/30/22 03:10 Mihir Test Pos 05/30/22 03:10 Hematocrit 52.6 % (37-47) H 05/30/22 03:10 Hgb O2 Saturation 90.0 % (95-100) L 05/30/22 03:10 Carboxyhemoglobin 3.6 %THgb (0.4-20.1) 05/30/22 03:10 Methemoglobin 0.8 % (0.4-1.5) 05/30/22 03:10 Total Hemoglobin 17.2 g/dL (12-16) H 05/30/22 03:10 O2 Delivery Device Nc 05/30/22 03:10 O2 Liters/Min 3.0 % 05/30/22 03:10 FiO2 32.0 % 05/30/22 03:10 Groundwater Programs Director ID [email or web address] 05/30/22 03:10 Sodium 140 mmol/L (136-145) 06/01/22 04:32 Potassium 4.8 mmol/L (3.5-5.1) 06/01/22 04:32 Chloride 99 mmol/L (98-107) 06/01/22 04:32 Carbon Dioxide 32 mmol/L (22-29) H 06/01/22 04:32 Anion Gap 13.8 (5-19) 06/01/22 04:32 BUN 21 mg/dL (8-23) 06/01/22 04:32 Creatinine 0.9 mg/dL (0.5-0.9) 06/01/22 04:32 GFR Calculation 62.8 mL/min (90-130) L 06/01/22 04:32 Glucose 110 mg/dL (65-115) 06/01/22 04:32 Calculated Osmolality 294 mOsm/kg (285-295) 06/01/22 04:32 Calcium 9.5 mg/dL (8.5-10.5) 06/01/22 04:32 Total Bilirubin 0.2 mg/dL (0.15-1.2) 06/01/22 04:32 AST 14 U/L (0-32) 06/01/22 04:32 ALT 18 U/L (0-33) 06/01/22 04:32 Alkaline Phosphatase 103 IU/L (35-105) 06/01/22 04:32 NT-Pro-B Natriuret Pep 262 pg/mL (0-125) H 05/30/22 02:58 Total Protein 6.6 g/dL (6.6-8.7) 06/01/22 04:32 Albumin 3.5 g/dL (3.5-5.2) 06/01/22 04:32 Globulin 3.1 g/dL (1.3-4.6) 06/01/22 04:32 TSH 2.99 uIU/mL (0.27-4.20) 05/30/22 04:31 Fluid Color Cancelled 05/31/22 13:45 Fluid Appearance Cancelled 05/31/22 13:45 Fluid WBC Cancelled 05/31/22 13:45 Fluid RBC Cancelled 05/31/22 13:45 Fluid Hematocrit 0.0 % 05/31/22 13:45 Fluid Tot Cell Count Cancelled 05/31/22 13:45 Fld Polynuclear WBCs # Cancelled 05/31/22 13:45 Fld Polynuclear WBCs % Cancelled 05/31/22 13:45 Fl Mononucl WBCs #(Auto) Cancelled 05/31/22 13:45 Fl Mononuclear % Auto Cancelled 05/31/22 13:45 Fluid Albumin Cancelled 05/31/22 13:45 Fluid Creatinine 0.83 (0.5-0.9) 05/31/22 13:45 Pleural Color Ana (Pale Yellow) H 05/31/22 13:45 Pleural Appearance Cloudy (CLEAR) 05/31/22 13:45 Pleural pH 8.00 (6.5-7.5) H 05/31/22 13:45 Pleural WBC 97.000 /uL (0-1000) 05/31/22 13:45 Pleural RBC 4.000 10^3/uL 05/31/22 13:45 Pleural Other Cells Not Reportable 05/31/22 13:45 Pleural Polynuclear % 9 % 05/31/22 13:45 Pleural Mononuclear % 91 % 05/31/22 13:45 Pleural Total Protein 3.8 g/dL 05/31/22 13:45 Pleural Albumin 2.3 g/dL 05/31/22 13:45 Pleural LDH 489 U/L 05/31/22 13:45 Pleural Glucose 160.0 mg/dL 05/31/22 13:45 Pleural Amylase 61.0 U/L 05/31/22 13:45 Pleural Triglycerides 49 mg/dL 05/31/22 13:45 SARS-CoV-2 Ag (Rapid) Negative (Negative) 05/30/22 03:00 Path Cons w/Slide Yes 05/31/22 13:45 Vitals Last Vital Signs Temp 98.1 F 06/01/22 11:24 Pulse 89 06/01/22 11:24 Resp 18 06/01/22 11:24 BP 123/70 06/01/22 11:24 Pulse Ox 92 06/01/22 11:24 Discharge Plan Discharge Patient Disposition: Home Condition: Stable Prescriptions: New docusate sodium 100 mg Capsule 100 mg PO BID 30 Days Qty: 60 0RF fluticasone propion-salmeterol [Advair Diskus] 250-50 mcg/dose blister with device 1 inh inhalation BID Qty: 60 0RF prednisone 20 mg tablet 20 mg PO BID 7 Days Qty: 14 0RF doxycycline hyclate 100 mg tablet 100 mg PO BID 7 Days Qty: 14 0RF nicotine 21 mg/24 hr patch 24 hour 1 patch transdermal DAILY Qty: 28 0RF Incruse Ellipta 62.5 mcg/actuation blister with device 1 inh inhalation DAILY Qty: 30 0RF Continued coenzyme Q10 [CoQ-10] 100 mg capsule 100 mg PO DAILY 0RF albuterol sulfate [Ventolin HFA] 90 mcg/actuation HFA aerosol inhaler 2 puff INHALATION Q6H PRN (Reason: Shortness Of Breath) 0RF albuterol sulfate 2.5 mg /3 mL (0.083 %) solution for nebulization 2.5 mg inhalation Q4H PRN (Reason: shortness of breath or wheezing) Qty: 90 1RF omeprazole 40 mg capsule,delayed release(DR/EC) 40 mg PO DAILY 56 Days Qty: 60 0RF magnesium citrate Solution 300 ml PO DAILY PRN (Reason: constipation) Qty: 296 0RF cholecalciferol (vitamin D3) 125 mcg (5,000 unit) capsule 125 mcg PO DAILY Qty: 90 3RF Farxiga 10 mg tablet 10 mg PO QAM Qty: 90 3RF ezetimibe 10 mg tablet 10 mg PO BEDTIME 0RF rosuvastatin 40 mg tablet 40 mg PO BEDTIME 0RF Discontinued omega-3 fatty acids [Fish Oil Concentrate] 1,000 mg capsule 1,000 mg PO DAILY 0RF Stiolto Respimat 2.5-2.5 mcg/actuation mist 2 puff inhalation DAILY Qty: 4 11RF ibuprofen 800 mg tablet 800 mg PO Q8H PRN (Reason: pain) Qty: 90 11RF prednisone 10 mg tablet 10 mg PO DAILY 0RF Discharge Orders: Discharge Order (Routine); Ordered 06/01/22 Ordered By: Ruperto Woods Other Ambulatory Orders: DME: Oxygen (Order) Location: None Selected Ordered By: Ruperto Woods Referrals: Geraldo Reeder MD [Physician] - 1 week Liv Ramirez MD [Staff Physician] - 4-7 days Tri Ludwig NP [Primary Care Provider] - 1-3 days (needs cxray) Discharge Diet: Cardiac Discharge Activity: Resume usual activity Patient Instructions: Opioid Safety Activity Restrictions/Additional Instructions: - Please stop smoking -Please use oxygen as prescribed, do not smoke around oxygen -Please stay away from any gas powered equipment when on oxygen -Take prednisone burst as prescribed -Take antibiotics as prescribed -Use Incruse, and Advair as prescribed -Albuterol as needed for shortness of breath -If you have any fevers, worsening cough go to the emergency room -Please see your primary care provider on at least Tuesday for repeat chest x- ray, follow-up pleural effusion -Please see hematology oncology next week -Please see pulmonary in the least a 1 week -Please hand wash, facemask, social distancing Discharge Attestations Time Spent in Discharge Care*: less than 30 min Quality Metrics Clinical Quality Measures [ No reported AMI, CVA or VTE this stay] Coding Level of Care Code Acute Chg FW DC note Diagnoses Acute respiratory failure with hypoxia J96.01 Pleural effusion J90 Lung mass R91.8 COPD (chronic obstructive pulmonary disease) J44.9 Asthma J45.909 Liver lesion K76.9 Smoking addiction F17.200
--- NOTE | 2022-06-01 14:34 | PC.NURSE ---
Discharge Note Patient discharged to home via private vehicle accompanied by family. Discharge instructions reviewed with patient and/or lead generation representative. Mobile pharmacy medications and/or prescriptions provided. Belongings/home medications returned.
== END 2022-06-01 14:38 | disposition home or self-care (01) | DRG 180 ==
LOC: ER 04:40 → MEDSURG 05:32
PROVIDERS: Admitting Provider Internal Medicine; Emergency Provider Emergency Medicine; PCP Nurse Practitioner Family; Visit Provider Family Medicine
DX: C34.90 Malignant neoplasm of unspecified part of unspecified bronchus or lung (principal); J18.9 Pneumonia, unspecified organism; J96.01 Acute respiratory failure with hypoxia; J44.0 Chronic obstructive pulmonary disease with (acute) lower respiratory infection; J45.901 Unspecified asthma with (acute) exacerbation; C78.7 Secondary malignant neoplasm of liver and intrahepatic bile duct; J91.0 Malignant pleural effusion; J44.1 Chronic obstructive pulmonary disease with (acute) exacerbation; F41.9 Anxiety disorder, unspecified; I25.10 Atherosclerotic heart disease of native coronary artery without angina pectoris; F32.A Depression, unspecified; Z86.14 Personal history of Methicillin resistant Staphylococcus aureus infection; E78.2 Mixed hyperlipidemia; F17.210 Nicotine dependence, cigarettes, uncomplicated; M54.50 Low back pain, unspecified; Z79.51 Long term (current) use of inhaled steroids
CPT/HCPCS: 32555; 36415; 36600; 71045; 71250; 80053; 80503; 82042; 82150; 82570; 82805; 82945; 83615; 83880; 83986; 84157; 84443; 84478; 85014; 85025; 85610; 86403; 87015; 87040; 87070; 87075; 87116; 87205; 87206; 87426; 87449; 87641; 87801; 88305; 88342; 89050; 93005; 94640; 94664; 94760; 96365; 96367; 96375; 99285; J0456; J0696; J2270; J2405; J2920; J2930; J7050

== ENCOUNTER → 2022-06-04 11:55 | Outpatient (BNVA) | payer MEDICARE, MEDICAID, SELFPAY | PROVIDERS: PCP Nurse Practitioner Family; Visit Provider Nurse Practitioner Family | DX: J90 Pleural effusion, not elsewhere classified (principal) | CPT/HCPCS: 71046 ==

== ENCOUNTER → 2022-06-10 09:52 | Outpatient (BNVA) | payer MEDICARE, MEDICAID, SELFPAY | PROVIDERS: PCP Nurse Practitioner Family; Visit Provider Internal Medicine Critical Care Medicine | DX: C34.90 Malignant neoplasm of unspecified part of unspecified bronchus or lung (principal); J90 Pleural effusion, not elsewhere classified; J44.9 Chronic obstructive pulmonary disease, unspecified; F17.210 Nicotine dependence, cigarettes, uncomplicated | CPT/HCPCS: 99205 ==

== ENCOUNTER → 2022-06-16 08:42 | Outpatient (BNVA) | payer MEDICARE, MEDICAID, SELFPAY | PROVIDERS: PCP Nurse Practitioner Family; Visit Provider Surgery | DX: C34.90 Malignant neoplasm of unspecified part of unspecified bronchus or lung (principal); Z95.828 Presence of other vascular implants and grafts | CPT/HCPCS: 99203 ==

== ENCOUNTER 2022-06-16 16:00 | Oncology outpatient (recurring) (ONCR) | payer MEDICARE, MEDICAID, SELFPAY ==
[2022-06-16] MEDS: iohexol 350 mg/mL 100 mL Btl IV (15:15)
--- NOTE | 2022-06-16 16:00 | CT_ITS ---
WS: [id number] CT HEAD TECHNIQUE: Noncontrast and contrast-enhanced CT of the head. CLINICAL INFORMATION: Staging COMPARISON: None. DLP: 2043.[address] scans at [facility] use at least one of these dose optimization techniques: automated e xposure control; mA and/or kV adjustment per patient size (includes targeted exams where dose is matc hed to clinical indication); or iterative reconstruction. FINDINGS: No evidence of intracranial hemorrhage or mass effect. Mild small vessel changes. Mild parenchymal vo lume loss. Intracranial vascular calcification. No abnormal intracranial enhancement. No evidence of enhancing intracranial metastatic disease. Paran chelsea sinuses and mastoid air cells are well aerated. No other significant findings. CT/CT head wo/w con [id number] IMPRESSION: 1. No evidence of intracranial hemorrhage or mass effect. 2. No evidence of enhancing intracranial metastatic disease. 3. Intracranial vascular calcification. 4. Mild small vessel changes with mild parenchymal volume loss.
== END 2022-07-07 23:59 | disposition home or self-care (01) ==
LOC: ONCMED 06-17 06:12
PROVIDERS: PCP Nurse Practitioner Family; Visit Provider Internal Medicine Hematology & Oncology
DX: C34.90 Malignant neoplasm of unspecified part of unspecified bronchus or lung (principal); Z87.891 Personal history of nicotine dependence; Z53.9 Procedure and treatment not carried out, unspecified reason; Z95.828 Presence of other vascular implants and grafts
CPT/HCPCS: 70470; 99203; 99204

== ENCOUNTER → 2022-06-18 11:16 | Day surgery (SDC) | payer MEDICARE, MEDICAID, SELFPAY ==
[2022-06-17 13:27] VITALS: BMI 38.3
[2022-06-18 11:44] VITALS: BP 130/88; PULSE 101; RESP 24; TEMP 36.1; O2SAT 97
--- NOTE | 2022-06-18 12:35 | XR_ITS ---
WS: [id number] XR chest 1V portable [id number] REASON FOR EXAM: post thoracentesis FINDINGS: Near complete opacification of the left hemithorax with small amount of aerated left upper lung which demonstrates diffuse interstitial reticular opacity. Central air bronchograms. Patient is rotated ho wever no significant mediastinal shift is noted. No air is identified in the left pleural space. Right lower lung demonstrates several small linear opacities. XR/XR chest 1V portable [id number] IMPRESSION: Near complete opacification of the left hemithorax which appears to be due to p leural fluid and presumed compressive atelectasis of the left lung. There is mo re opacification of the left chest than on the last comparison examination of .
[2022-06-18 12:39] VITALS: BP 123/67; PULSE 84; RESP 18; O2SAT 95
--- NOTE | 2022-06-18 16:03 | P.PCN_ITS ---
Procedure/Consent Time out: Time Out Performed: Yes Consent: Consent for Procedure: Consent obtained from patient Procedure Narrative: Name of the procedure: Left sided thoracentesis under ultrasound guidance. Indication: Malignant pleural effusion Anesthetics: Local anesthesia with 1% lidocaine. 10 mL. IV pain medication: None. Description of the procedure: The procedure was explained to the patient in d etail including the risks and a consent was obtained. The left hemithorax was scanned with ultrasound to find a safe fluid pocket. Moderate amount of fluid with loculation was identified. Following identification of the fluid pocket the site was marked. The site was cleaned using sterile technique. Lidocaine 1% was injected into the skin and the subcutaneous tissue. Subsequently, the periosteum in the parietal pleural was also anesthetized using lidocaine. The pleural space was entered in the posterior axillary line in the left seventh intercostal space. Serosanguineous fluid was aspirated. About 1400 cc of fluid was aspirated. Postprocedure chest x-ray did not show any pneumothorax. There was opacification of the left hemithorax which was worse than the previous x-rays however this is likely secondary to loculated pleural fluid. There was no mediastinal shift to the right. In fact, there was some mediastinal shift to the left likely secondary to atelectasis. Acute Procedures Epistaxis Control: Time out performed: Yes
== END ==
LOC: GILAB 11:18
PROVIDERS: PCP Nurse Practitioner Family; Visit Provider Internal Medicine Critical Care Medicine
PROC: (CPT 32554; principal; 2022-06-18 12:30)
DX: C80.1 Malignant (primary) neoplasm, unspecified (principal); J91.0 Malignant pleural effusion
CPT/HCPCS: 32554; 71045

== ENCOUNTER 2022-06-22 05:35 | Day surgery (SDC) | payer MEDICARE, MEDICAID, SELFPAY ==
[2022-06-22] VITALS (8 sets, daily range): BP systolic 92–106; BP diastolic 59–89; PULSE 90–111; RESP 12–20; TEMP 36.3–36.6; O2SAT 94–97
--- NOTE | 2022-06-22 | SCC_ITS ---
Procedure done: 1.Placement of PowerPort via right subclavian vein 2.Fluoroscopic guidance and interpretation for placement of catheter 11.9 seconds of fluoroscopic guidance, for a cumulative dose of 3.29 mGy, was provided to Dr. Baumann by the radiology department. C-arm images of the chest were saved for the patient's permanent record. [facility]
--- NOTE | 2022-06-22 05:53 | SC_ITS ---
WS: [id number] Exam: C-arm FL for CVA [id number] Date/Time of Exam: 06/22/2022 5:53 AM Reason For Exam: Powerport Placement Limited C-arm image of the upper right chest is submitted for evaluation. A right-sided subclavian port has been placed and appears to end in the lower one third of the SVC. N o other significant finding identified on this limited study.
--- NOTE | 2022-06-22 06:21 | W.PM.OPSUD ---
Surgery/Procedure H&P Update DATE OF PROCEDURE: June 22, 2022 DATE H&P PERFORMED: 06/16/22 H&P UPDATE INFORMATION: I have reviewed H&P completed within last 30 days, I have examined patient prior to procedure and No changes to prior documentation PREOP DIAGNOSIS: Lung cancer PRIMARY INDICATION FOR PROCEDURE: The same PLANNED PROCEDURE: Operation Date: 06/22/22 07:00 Proposed Procedures p placement of port a cath [id number],Z95.828,C34.90(Not Applicable) - Tree Baumann MD
[2022-06-22] MEDS: sodium chloride 0.9% 1,000 ML 30 ML IV (06:29)
--- NOTE | 2022-06-22 06:40 | ANES.PREANE2 ---
Pre-Anesthetic Assessment Height/Weight: Height 1.5 m Weight 86.183 kg Pulse Resp Pulse Ox O2 Del Method O2 Flow Rate 111 H 20 H 95 4 06/22/22 05:56 06/22/22 05:56 06/22/22 05:56 06/22/22 05:56 06/22/22 05:56 Preop Diagnosis: Lung cancer Operation Date: 06/22/22 07:00 Proposed Procedures p placement of port a cath [id number],Z95.828,C34.90(Not Applicable) - Tree Baumann MD Familial anesthetic complications: None Was Beta Marian taken within 24 hours: N/A Was Clonidine taken within 24 hours: N/A Last intake: Intake Last Liquid Date 06/21/22 Last Liquid Time 19:00 Last Solid Date 06/21/22 Last Solid Time 18:00 Social Tobacco and No alcohol Exam alert, oriented x 3, clear to auscultation bilaterally and regular rate & rhythm Airway Mallampati: Class III Dentition: other (no teeth) Pulmonary Chronic Obstructive Pulmonary Disease (3- 4 L NC) L Pleural effusion, Small cell lung cancer CV/HEM Coronary Artery Disease and Hypertension GI Gastroesophageal Reflux Disease Metabolic Morbid Obesity Anesthetic Plan ASA status: 4 Anesthesia: MAC Risk of > 500 ml blood loss (7ml/kg in children): No Medications/Allergies Home Medications Medication Instructions Recorded Confirmed Last Taken Type omeprazole 40 mg capsule,delayed 40 mg PO DAILY 8 weeks #60 caps 05/14/22 06/22/22 06/21/22 Rx release ezetimibe 10 mg tablet (Zetia) 10 mg PO BEDTIME 05/30/22 06/22/22 06/21/22 History rosuvastatin 40 mg tablet 40 mg PO BEDTIME 05/30/22 06/22/22 06/21/22 History docusate sodium 100 mg capsule 100 mg PO DAILY 06/10/22 06/22/22 06/21/22 History furosemide 20 mg tablet (Lasix) 20 mg PO DAILY PRN edema 30 days 06/10/22 06/22/22 06/21/22 Rx #30 tabs levalbuterol HCl 0.63 mg/3 mL 0.63 mg (3 mL) inhalation TID PRN 06/10/22 06/22/22 06/21/22 Rx solution for nebulization shortness of breath or wheezing 30 days #270 mL cholecalciferol (vitamin D3) 125 1 unit PO 06/14/22 06/18/22 06/21/22 History mcg (5,000 unit) capsule tiotropium 2.5 mcg-olodaterol 2.5 2 puff inhalation DAILY #4 grams 06/16/22 06/22/22 06/22/22 Rx mcg/actuation mist for inhalation (Stiolto Respimat) allopurinol 100 mg tablet 100 mg PO BID 06/18/22 06/21/22 Unknown History (Zyloprim) Allergies Allergy/AdvReac Type Severity Reaction Status Date / Time celecoxib [From Celebrex] Allergy Intermediate ALGY-Rash Verified 06/18/22 06:18 Sulfa (Sulfonamide Allergy Intermediate ALGY-Rash Verified 06/18/22 06:18 Antibiotics) Current Medications Generic Name Dose Route Start Last Admin Trade Name Freq PRN Reason Stop Dose Admin Sodium Chloride 1,000 mls @ 30 mls/hr 06/22/22 06:00 06/22/22 06:29 Sodium Chloride 0.9% IV 06/23/22 05:59 30 mls/hr .Q24H LEÓN Administration PFSH Anesthesia Medical History Anxiety Arthritis of both knees Asthma CAD (coronary artery disease) COPD (chronic obstructive pulmonary disease) Depressed Enrolled in chronic care management GERD (gastroesophageal reflux disease) History of MRSA infection History of vitamin D deficiency HLD (hyperlipidemia) Insomnia Mixed hyperlipidemia Shoulder pain Small cell lung cancer Smoking addiction Surgical History H/O lumpectomy History of bilateral tubal ligation History of D&C History of knee surgery Hx of cholecystectomy Hx of tonsillectomy Family History Father CAD (coronary artery disease) NM (mitral incompetence) COPD (chronic obstructive pulmonary disease) Lung disease Mother Cancer Lung disease Other Diabetes Hyperlipidemia Denies family history of Clotting disorder Dementia Psychiatric illness Chronic kidney disease (CKD) Suicide Anesthesia complication Bleeding disorder Hypertension Stroke Social History Smoking and tobacco status: former smoker (quit 15 days ago ) Alcohol intake: never Lives independently: Yes Household members: spouse Marital status: Data Anesthesia : 06/22/22 06:18 Cardiac Studies: No Data to Display
[2022-06-22] MEDS: ceFAZolin 2,000 MG in sodium chloride 0.9% (plus) 50 ML 100 MG IV (07:00)
[2022-06-22] MEDS: heparin, porcine 1,000 unit/mL INJ 10 mL 10000 UNIT INJECTION (07:26)
--- NOTE | 2022-06-22 07:46 | P.OP_ITS ---
Operative Report Date of procedure: June 22, 2022 Pre-op diagnosis: Preop Diagnosis Lung cancer Post-op diagnosis: The same Procedure done: 1.Placement of PowerPort via right subclavian vein 2.Fluoroscopic guidance and interpretation for placement of catheter Surgeon: Tree Baumann MD Loom Operator Apprentice: Jesus Manuel Cardenas Circulating nurse Joanna Villegas Anesthesia: MAC (PHUONG Cardenas) Estimated blood loss (mL): 5 Procedure: RIGHT SUBCLAVIAN VEIN Patient was identified in the holding area and taken to the operative room and placed in supine position IV propofol was given by the anesthesia provider ,both arms were tucked,Time-out was done verifying the patient's name/date of /planned procedure and destination after the procedure, all were in agreement. SCDs confirmed to be functioning, preoperative antibiotics administered per protocol, and beta maritza protocol was confirmed, appropriate positioning of the patient was done by me. Medications were reviewed to assess for anticoagulant usage. Risks and benefits and prevention of central line associated blood stream infection (CLABSI) were discussed with the patient/CPOA, and a consent was obtained. Monitors were in place and monitored throughout the procedure. All necessary supplies were available prior to start. Hand hygiene was completed prior to starting. Maximum barrier technique was utilized including a sterile gown, sterile gloves with a hat and mask. Site was was prepped with [chlorhexidine] and a full body drape was placed. 5 mL of 2% lidocaine was injected into the skin with a 25 gauge needle. Prep& drape was done under the usual sterile technique, lidocaine 2% was injected at the site of the stick, started by right sub-clavian vein stick that retrieved venous blood was obtained from the first stick, a guide wire was then threaded and under the guidance of fluoroscopy position was confirmed to be in the IVC and my interpretation, there were no PVC changes, at that point the guide wire was secured to the drapes with a hemostat and the needle was taken out, attention was then deviated towards creation of a pocket for the port were lidocaine 2% was injected using an 15 blade knife skin incision was created dissection using the Bovie to create a pocket for the Power Port to be accommodated. Hemostasis was secured, after the port being appropriately flushed it was inserted into the pocket and a tunneler was used to accommodate the catheter of the port catheter to be delivered through the incision first created at the site of the stick, at that point under fluoroscopy an estimated length was measured for the catheter and was cut at the designed level, followed by that a dilator with the sheath introduced onto the guide wire the dilator and the wire were retrieved and the catheter of the port was introduced via the sheath where it was peeled off and the catheter maintained to be in the SVC that was confirmed with fluoroscopy, and the fluoroscopy interpretation was done by me throughout the entire procedure. The port was kept in its pocket,3-0 Vicryl deep subdermal interrupted sutures, skin was then closed by 4-0 Monocryl as subcuticular closure.The port was appropriately flushed with heparin and venous blood was withdrawn without difficulty.The stick site was closed by 4-0 Monocryl and Dermabond was used followed by dressing.Count was correct at the end of the procedure.Patient tolerated the procedure well was taken to the recovery area. I was present for the whole entire procedure. Position of the catheter was checked with a postoperative chest x-ray and it was in good position without evidence of pneumothorax
--- NOTE | 2022-06-22 07:47 | XRR_ITS ---
PROCEDURE INFORMATION: Exam: XR Chest Exam date and time: 06/22/2022 8:01 AM Age: 66 years old Clinical indication: Device placement; Other: Right subclavian vein powerport placement; Additional info: Status post right subclavian vein powerport placement TECHNIQUE: Imaging protocol: Radiologic exam of the chest. Views: 1 view. COMPARISON: CR XR chest 1V portable [id number] 06/18/2022 12:56 PM FINDINGS: Tubes, catheters and devices: A right subclavian power port catheter is present with the tip projecting in the SVC. Lungs: There is near complete opacification of the left hemithorax due to a large left pleural effusion and left lung consolidation/atelectasis. There is mild atelectasis in the medial right base. Pleural spaces: No pneumothorax. Heart/Mediastinum: Unremarkable. No cardiomegaly. Bones/joints: Unremarkable. XR/XR chest 1V portable [id number] IMPRESSION: 1. Satisfactory position of the right subclavian catheter with the tip projecting in the SVC. 2. Near complete opacification of the left hemithorax unchanged.
[2022-06-22 08:28] LABS: Blood Urea Nitrogen 19 mg/dL (8-23); Calcium 8.8 mg/dL (8.5-10.5); Carbon Dioxide 30 mmol/L (22-29); Chloride 96 mmol/L (98-107); Glomerular Filtration Rate 55.6 mL/min (90-130); Glucose 97 mg/dL (65-115); Osmolality Calculated 284 mOsm/kg (285-295); Sodium 136 mmol/L (136-145)
[2022-06-22 08:33] LABS: Anion Gap 14.1 (5-19); Potassium 4.1 mmol/L (3.5-5.1)
--- NOTE | 2022-06-22 09:43 | SUR.PHASEII ---
patient had blue bruise on left shoulder stated it was not tender but could not remember if it was there this morning before surgery. spoke with dr. fuller, nothing in the surgery should have caused this. patient did have cxr for port placement, review by radiology and dr fuller and it shows no injury to this shoulder. patient given this information and told to use ice as needed and return to ER for any new concerns for left shoulder.
--- NOTE | 2022-06-22 13:23 | ANE.PACU2 ---
Inpatient post-anesthesia follow up: Airway intact: Yes Vital signs: Temperature 97.4 F Pulse Rate 94 Respiratory Rate 18 Blood Pressure 105/89 Pulse Oximetry 96 Oxygen Delivery Me thod Nasal Cannula Oxygen Flow Rate 3 Fraction of Inspir ed Oxygen Hydration adequate: Yes Nausea and vomiting: No Pain level: 1 Mental status: Baseline
== END 2022-06-22 09:20 | disposition home or self-care (01) ==
PROVIDERS: PCP Nurse Practitioner Family; Visit Provider Surgery
PROC: (CPT 36561; principal; 2022-06-22 07:00)
DX: C34.90 Malignant neoplasm of unspecified part of unspecified bronchus or lung (principal); J44.9 Chronic obstructive pulmonary disease, unspecified; Z99.81 Dependence on supplemental oxygen; I25.10 Atherosclerotic heart disease of native coronary artery without angina pectoris; I10 Essential (primary) hypertension; K21.9 Gastro-esophageal reflux disease without esophagitis; E66.01 Morbid (severe) obesity due to excess calories; Z68.38 Body mass index [BMI] 38.0-38.9, adult; F41.9 Anxiety disorder, unspecified; Z86.14 Personal history of Methicillin resistant Staphylococcus aureus infection; E78.2 Mixed hyperlipidemia; Z87.891 Personal history of nicotine dependence
CPT/HCPCS: 36561; 36415; 71045; 76000; 77001; 80048; C1788; J1644; J2704; J3010; J3490; J7030

== ENCOUNTER 2022-06-27 18:55 | Inpatient (IN) | payer MEDICARE, MEDICAID, SELFPAY ==
[2022-06-27] VITALS (8 sets, daily range): BP systolic 113–141; BP diastolic 60–95; PULSE 72–91; RESP 18–24; TEMP 36.5–36.9; O2SAT 91–100; BMI 38.3
--- NOTE | 2022-06-27 19:11 | XRR_ITS ---
PROCEDURE INFORMATION: Exam: XR Chest Exam date and time: 06/27/2022 7:34 PM Age: 66 years old Clinical indication: Shortness of breath; Prior surgery; Surgery type: Port; Additional info: SOB TECHNIQUE: Imaging protocol: Radiologic exam of the chest. Views: 1 view. COMPARISON: CR XR chest 1V portable [id number] 06/22/2022 8:01 AM FINDINGS: Tubes, catheters and devices: Chest port terminates mid SVC. Lungs: Left lung obscured. Right lung clear. Pleural spaces: Large left pleural effusion. Heart/Mediastinum: Unremarkable. No cardiomegaly. Bones/joints: Unremarkable. XR/XR chest 1V portable [id number] IMPRESSION: Massive left-sided pleural effusion.
--- NOTE | 2022-06-27 19:16 | ECG_ITS ---
[facility] Test Date: 2022-06-27 Pat Name: Edilma Langston Department: Room: Gender: Female Business Manager: : 1955 Requested By: Kashmir Nunn Order Number: [id number] Todd MD: Silvina La M.D. Measurements Intervals [place] Rate: 92 P: 57 CO: 135 QRS: -52 QRSD: 126 T: 47 QT: 364 QTc: 452 Interpretive Statements SINUS RHYTHM RIGHT BUNDLE BRANCH BLOCK [120+ ms QRS DURATION, UPRIGHT V1, 40+ ms S IN I/aVL/V4/V5/V6] LEFT ANTERIOR FASCICULAR BLOCK [QRS AXIS <= -45, QR IN I, RS IN II] Compared to ECG 05/30/2022 02:53:53 Myocardial infarct finding no longer present Electronically Signed On 06-28-2022 8:07:26 CDT by Silvina La M.D. [id number]
[2022-06-27 19:20] LABS: Basophils % 0.3 %; Hematocrit 50.7 % (37.0-47.0); Hemoglobin 16.8 g/dL (11.5-15.3); Lymphocytes # 0.8 10^3/uL (0.8-4.8); Lymphocytes % 11.4 %; Mean Corpuscular HGB Conc 33.1 g/dL (30.0-36.0); Mean Corpuscular Hemoglobin 31.1 pg (28.0-34.0); Mean Corpuscular Volume 93.9 fl (81-99); Mean Platelet Volume 9.8 fL (7.4-10.4); Monocytes # 0.3 10^3/uL (0.2-0.9); Monocytes % 4.1 %; Neutrophils # 5.81 10^3/uL (1.8-7.7); Neutrophils % 80.1 %; Nucleated Red Blood Cells % 0 %; Platelet Count 186 10^3/cmm (130-400); Red Cell Distribution Width 12.7 % (12.1-15.1); White Blood Count 7.3 10^3/uL (4.0-10.0)
[2022-06-27 19:34] LABS: ABG PCO2 44.4 mmHg (35-45); Base Excess ABG 9.5 mmol/L (-2.0-2.0); Blood Gas Allen Test Pos; Blood Gas Operator Identificat WALCI; Blood Gas Sample Site Radial, left; Blood Gas Sample Type Arterial; Carboxyhemoglobin 0.9 %THgb (0.4-20.1); HCO3 ABG 34.2 mmol/L (22-26); HGB O2 Sat 94.4 % (95-100); Methemoglobin 0.7 % (0.4-1.5); Oxygen Device NC; PO2 ABG 73.4 mmHg (80.0-100.0); Total Hemoglobin 16.7 g/dL (12-16)
[2022-06-27 19:43] LABS: Troponin(5th) Baseline 73 ng/L (0-10)
[2022-06-27 19:50] LABS: Lactic Sepsis W/Reflex 1.3 mmol/L (0.5-2.2)
[2022-06-27 19:51] LABS: Alanine Aminotransferase 45 U/L (0-33); Albumin Level 3.3 g/dL (3.5-5.2); Alkaline Phosphatase 205 U/L (35-105); Blood Urea Nitrogen 21 mg/dL (8-23); Calcium 8.6 mg/dL (8.5-10.5); Carbon Dioxide 29 mmol/L (22-29); Chloride 93 mmol/L (98-107); Globulin 2.4 g/dL (1.3-4.6); Glomerular Filtration Rate 55.6 mL/min (90-130); Glucose 138 mg/dL (65-115); NT Pro B Type Natriuretic Pept 1567 pg/mL (0-125); Osmolality Calculated 289 mOsm/kg (285-295); Sodium 137 mmol/L (136-145); Total Bilirubin 0.4 mg/dL (0.15-1.2); Total Protein 5.7 g/dL (6.6-8.7)
[2022-06-27 20:05] LABS: Aspartate Amino Transferase 51 U/L (0-32)
--- NOTE | 2022-06-27 20:27 | CTR_ITS ---
PROCEDURE INFORMATION: Exam: CT Chest Without Contrast; Diagnostic Exam date and time: 06/27/2022 8:38 PM Age: 66 years old Clinical indication: Shortness of breath; Prior surgery; Surgery type: Port; Patient HX: Lung cancer; Additional info: Shortness of breath, left pleural effusion TECHNIQUE: Imaging protocol: Diagnostic computed tomography of the chest without contrast. Radiation optimization: All CT scans at this facility use at least one of these dose optimization techniques: automated exposure control; mA and/or kV adjustment per patient size (includes targeted exams where dose is matched to clinical indication); or iterative reconstruction. COMPARISON: CT chest wo con [id number] 05/30/2022 3:51 AM RADIATION DOSE METRICS: Total DLP (mGy-cm): 572.56 FINDINGS: Tubes, catheters and devices: Right chest port extends to the mid SVC. Thyroid: Unremarkable thyroid lobes. Lungs: Multiple noncalcified right lung pulmonary nodules. Left lung atelectasis which is not further assessed. Largest nodule in the anterior left upper lobe with spiculated border measures 2.1 cm x 1.3 cm. Masslike changes in the anterior left upper lobe. Pleural spaces: Massive left pleural effusion. Nodular left pleural soft tissue implants. Negative for pneumothorax. Heart: Unremarkable. No cardiomegaly. No pericardial effusion. Small volume coronary artery calcifications. Mediastinal space: Unremarkable thoracic esophagus. Lymph nodes: Unremarkable. No enlarged lymph nodes. Vasculature: Unremarkable. No aortic aneurysm. Liver: Innumerable low-attenuation liver lesions. Adrenal glands: Bilateral adrenal gland nodular thickening. Bones/joints: Lytic lesion in the spinous process of T11 with an expansile soft tissue masslike density extending posteriorly. No acute fracture. Unremarkable thoracic spine alignment. Soft tissues: Unremarkable. CT/CT chest wo con [id number] IMPRESSION: 1. Increased size of large left pleural effusion. 2. Redemonstration thoracoabdominal metastatic disease.
[2022-06-27] MEDS: potassium chloride ER 20 mEq Tablet 40 MEQ PO (20:47)
--- NOTE | 2022-06-27 20:48 | W.ED.SOB ---
HPI - SOB/Dyspnea General: Chief Complaint: Shortness of Breath/Dyspnea Stated Complaint: SOB Time Seen by Provider: 06/27/22 19:09 Source: patient and family History of Present Illness: HPI Narrative: 66-year-old female with a recent diagnosis of left lung malignancy. She presents with increasing shortness of breath for the past 24 to 48 hours. She has been coughing with small amounts of clear sputum production. No fever she is on her baseline oxygen of 3 at home at rest. She is using 5 currently. She notes that her breathing treatment and Solu-Medrol she received in the ambulance ride here seem to help significantly MD elicited complaint: shortness of breath and cough Pertinent past history: COPD and other Context: recent illness Timing: constant and progressively worsening Severity: moderate Exacerbating factors: lying flat and exertion Relieving factors: oxygen and bronchodilators Known history of: COPD and other Associated symptoms: Reports chest congestion, chest pain (Mild) and cough; Deny abdominal pain, diaphoresis, dizziness, extremity pain, fever(s), nausea or vomiting Treatment prior to arrival: oxygen, bronchodilator and other (Steroids Solu-Medrol 125 mg) Review of Systems Const: Denies: fever(s) or diaphoresis ENMT: Denies: throat pain Card: Reports: chest pain (Mild) Resp: Reports: dyspnea, productive cough, wheezing and chest congestion GI: Denies: abdominal pain, nausea or vomiting : Denies: difficulty voiding Musc: Denies: extremity pain Neuro: Denies: dizziness PFSH ED PFSH: Medical History Anxiety Arthritis of both knees Asthma CAD (coronary artery disease) COPD (chronic obstructive pulmonary disease) Depressed Enrolled in chronic care management GERD (gastroesophageal reflux disease) History of MRSA infection History of vitamin D deficiency HLD (hyperlipidemia) Insomnia Mixed hyperlipidemia Shoulder pain Small cell lung cancer Smoking addiction Surgical History H/O lumpectomy History of bilateral tubal ligation History of D&C History of knee surgery Hx of cholecystectomy Hx of tonsillectomy Family History Father CAD (coronary artery disease) [place] (mitral incompetence) COPD (chronic obstructive pulmonary disease) Lung disease Mother Cancer Lung disease Other Diabetes Hyperlipidemia Denies family history of Clotting disorder Dementia Psychiatric illness Chronic kidney disease (CKD) Suicide Anesthesia complication Bleeding disorder Hypertension Stroke Social History Smoking and tobacco status: former smoker (quit 15 days ago ) Alcohol intake: never Lives independently: Yes Household members: spouse Marital status: Physical Exam Const: GENERAL APPEARANCE: cooperative, ill appearing and frail appearing (Mildly) HENMT: COMMON NORMALS: normocephalic, atraumatic and Normal external nose present HEAD & SCALP: normocephalic and atraumatic NOSE: Normal external nose present Eye: COMMON NORMALS: Equal, round and reactive pupils present and EOMs intact bilaterally PUPIL: Yes Equal, round and reactive pupils present Neck/C-Spine: GENERAL: Yes trachea midline Chest: CHEST: Yes Symmetrical chest wall rise Resp: COMMON NORMALS: clear to auscultation bilaterally EFFORT & INSPECTION: Yes tachypneic and No respiratory distress AUSCULTATION: clear to auscultation bilaterally and diminished lung sounds (More so on the right) Cardio: COMMON NORMALS: regular rate and regular rhythm RATE: regular rate RHYTHM: regular rhythm GI: COMMON NORMALS: Normal to inspection, nondistended, normoactive bowel sounds present and Soft to palpation PALPATION: Yes Soft to palpation Extremity: COMMON NORMALS: no pedal edema Neuro: KENIA COMA SCALE: document GCS findings [place] coma scale eye opening: Spontaneous [place] coma scale verbal response: Orientated [place] coma scale motor response: Obey commands [place] coma scale total score: 15 Psych: COMMON NORMALS: mental status grossly normal Course Vital Signs: Vital signs: Vital Signs Temperature 97.7 F 06/27/22 18:58 Pulse Rate 87 06/27/22 21:12 Respiratory Rate 20 H 06/27/22 21:12 Blood Pressure 124/60 06/27/22 21:12 Pulse Oximetry 95 06/27/22 21:12 Oxygen Delivery Me thod 06/27/22 21:12 Oxygen Flow Rate 4 06/27/22 21:12 MDM - SOB/Dyspnea Medical Decision Making 66-year-old female with small cell carcinoma of the lung. She presents with shortness of breath, improved after DuoNeb and Solu-Medrol in route to the hospital. She is afebrile. Her white count is 7. Blood gas shows hypoxia despite 5 L. She has a saturation of 95% in the ER. Heart rate is 84, blood pressure 112/65. She has a large left pleural effusion, redemonstrated despite thoracentesis a week or so ago. She is obviously symptomatic with this. She will be admitted for management. Hospitalist will see in the ER. Lab Data : 06/27/22 19:15 06/27/22 19:15 Labs/Radiology: Radiology Impressions Chest X-Ray 06/27/22 19:11 IMPRESSION: Massive left-sided pleural effusion. Chest CT 06/27/22 20:27 IMPRESSION: 1. Increased size of large left pleural effusion. 2. Redemonstration thoracoabdominal metastatic disease. Laboratory Results WBC 7.3 10^3/uL (4.0-10.0) 06/27/22 19:15 RBC 5.40 10^6/uL (4.1-5.3) H 06/27/22 19:15 Hgb 16.8 g/dL (11.5-15.3) H 06/27/22 19:15 Hct 50.7 % (37.0-47.0) H 06/27/22 19:15 MCV 93.9 fl (81-99) 06/27/22 19:15 MCH 31.1 pg (28.0-34.0) 06/27/22 19:15 MCHC 33.1 g/dL (30.0-36.0) 06/27/22 19:15 RDW 12.7 % (12.1-15.1) 06/27/22 19:15 Plt Count 186 10^3/cmm (130-400) 06/27/22 19:15 MPV 9.8 fL (7.4-10.4) 06/27/22 19:15 Neut % (Auto) 80.1 % 06/27/22 19:15 Lymph % (Auto) 11.4 % 06/27/22 19:15 [place] % (Auto) 4.1 % 06/27/22 19:15 Eos % (Auto) 0.0 % 06/27/22 19:15 Baso % (Auto) 0.3 % 06/27/22 19:15 Neut # (Auto) 5.81 10^3/uL (1.8-7.7) 06/27/22 19:15 Lymph # (Auto) 0.8 10^3/uL (0.8-4.8) 06/27/22 19:15 [place] # (Auto) 0.3 10^3/uL (0.2-0.9) 06/27/22 19:15 Eos # (Auto) 0.0 10^3/uL (0.0-0.8) 06/27/22 19:15 Baso # (Auto) 0.0 10^3/uL (0.0-0.1) 06/27/22 19:15 Nucleated RBC % (auto) 0 % 06/27/22 19:15 Nucleated RBCs # 0.0 /100WBC 06/27/22 19:15 Specimen Type Arterial 06/27/22 19:23 Sample Site Radial, left 06/27/22 19:23 ABG pH 7.50 (7.35-7.45) H 06/27/22 19:23 ABG pCO2 44.4 mmHg (35-45) 06/27/22 19: ABG pO2 73.4 mmHg (80.0-100.0) L 06/27/22 19: ABG HCO3 34.2 mmol/L (22-26) H 06/27/22 19:23 ABG Base Excess 9.5 mmol/L (-2.0-2.0) H 06/27/22 19:23 Mihir Test Pos 06/27/22 19:23 Hematocrit 51.0 % (37-47) H 06/27/22 19:23 Hgb O2 Saturation 94.4 % (95-100) L 06/27/22 19:23 Carboxyhemoglobin 0.9 %THgb (0.4-20.1) 06/27/22 19:23 Methemoglobin 0.7 % (0.4-1.5) 06/27/22 19:23 Total Hemoglobin 16.7 g/dL (12-16) H 06/27/22 19:23 O2 Delivery Device Nc 06/27/22 19:23 O2 Liters/Min 5.0 % 06/27/22 19:23 Sawmill Production Worker ID Rashidmary jo 06/27/22 19:23 Sodium 137 mmol/L (136-145) 06/27/22 19:15 Potassium 3.0 mmol/L (3.5-5.1) L 06/27/22 19:15 Chloride 93 mmol/L (98-107) L 06/27/22 19:15 Carbon Dioxide 29 mmol/L (22-29) 06/27/22 19:15 Anion Gap 18.0 (5-19) 06/27/22 19:15 BUN 21 mg/dL (8-23) 06/27/22 19:15 Creatinine 1.0 mg/dL (0.5-0.9) H 06/27/22 19:15 GFR Calculation 55.6 mL/min (90-130) L 06/27/22 19:15 Glucose 138 mg/dL (65-115) H 06/27/22 19:15 Calculated Osmolality 289 mOsm/kg (285-295) 06/27/22 19:15 Lactic Acid 1.3 mmol/L (0.5-2.2) 06/27/22 19:25 Calcium 8.6 mg/dL (8.5-10.5) 06/27/22 19:15 Total Bilirubin 0.4 mg/dL (0.15-1.2) 06/27/22 19:15 AST 51 U/L (0-32) H 06/27/22 19:15 ALT 45 U/L (0-33) H 06/27/22 19:15 Alkaline Phosphatase 205 U/L (35-105) H 06/27/22 19:15 Troponin T Baseline 73 ng/L (0-10) H 06/27/22 19:15 NT-Pro-B Natriuret Pep 1567 pg/mL (0-125) H 06/27/22 19:15 Total Protein 5.7 g/dL (6.6-8.7) L 06/27/22 19:15 Albumin 3.3 g/dL (3.5-5.2) L 06/27/22 19:15 Globulin 2.4 g/dL (1.3-4.6) 06/27/22 19:15 Discharge Plan Discharge Patient Disposition: Admitted As Inpatient Clinical Impression: Pleural effusion, Acute on chronic respiratory failure with hypoxia Condition: Stable Prescriptions: No Action omeprazole 40 mg capsule,delayed release(DR/EC) 40 mg PO DAILY 56 Days Qty: 60 0RF docusate sodium 100 mg capsule 100 mg PO DAILY levalbuterol HCl 0.63 mg/3 mL solution for nebulization 0.63 mg inhalation TID PRN (Reason: shortness of breath or wheezing) 30 Days Qty: 270 4RF furosemide [Lasix] 20 mg tablet 20 mg PO DAILY PRN (Reason: edema) 30 Days Qty: 30 3RF Stiolto Respimat 2.5-2.5 mcg/actuation mist 2 puff inhalation DAILY Qty: 4 3RF cholecalciferol (vitamin D3) 125 mcg (5,000 unit) capsule 1 unit PO Rx Instructions: 50,000 units orally weekly for 8 weeks; Then start this one daily miscellaneous medical supply Misc 1 ea miscellaneous ONCE Qty: 1 0RF Rx Instructions: please dispense one rolator with seat. ezetimibe [Zetia] 10 mg tablet 10 mg PO BEDTIME rosuvastatin 40 mg tablet 40 mg PO BEDTIME allopurinol [Zyloprim] 100 mg tablet 100 mg PO BID Rx Instructions: to start taking a day before chemo starts hydrocodone-acetaminophen 5-325 mg tablet 1 tab PO Q6H PRN (Reason: pain) Qty: 10 0RF Referrals: Tri Ludwig NP [Primary Care Provider] - Coding Level of Care Code ED Shingle Shearing Machine Operator for Chg Fwd Exam Comprehensive
--- NOTE | 2022-06-27 22:01 | PC.NURSE ---
Attempted to call report to [facility], no answer on phone
--- NOTE | 2022-06-27 22:07 | P.HP_ITS ---
Providers/Chief Complaint Admitting Physician: Ruperto Woods MD Primary Care Provider: Tri Ludwig NP Chief Complaint: SOB History of Present Illness Edilma Langston is a 66 year old female with a past medical history of COPD, small cell lung cancer, with evidence of metastasis, history of recurrent left thoracocentesis for malignant pleural effusion, history of diastolic CHF, who presents to [facility] for shortness of breath. Patient tells me that she is been increasingly short of breath, she has bilateral extremity edema, she does take Lasix, she had a thoracocentesis a few days ago. No chest pain, no palpitations, no cough, no fevers. Review of Systems Card: Denies: chest pain Resp: Reports: dyspnea GI: Denies: abdominal pain : Reports: difficulty voiding Medications/Allergies Home Medications Medication Instructions Recorded Confirmed Last Taken Type omeprazole 40 mg capsule,delayed 40 mg PO DAILY 8 weeks #60 caps 05/14/22 06/22/22 06/21/22 Rx release ezetimibe 10 mg tablet (Zetia) 10 mg PO BEDTIME 05/30/22 06/22/22 06/21/22 History rosuvastatin 40 mg tablet 40 mg PO BEDTIME 05/30/22 06/22/22 06/21/22 History docusate sodium 100 mg capsule 100 mg PO DAILY 06/10/22 06/22/22 06/21/22 History furosemide 20 mg tablet (Lasix) 20 mg PO DAILY PRN edema 30 days 06/10/22 06/22/22 06/21/22 Rx #30 tabs levalbuterol HCl 0.63 mg/3 mL 0.63 mg (3 mL) inhalation TID PRN 06/10/22 06/22/22 06/21/22 Rx solution for nebulization shortness of breath or wheezing 30 days #270 mL cholecalciferol (vitamin D3) 125 1 unit PO 06/14/22 06/18/22 06/21/22 History mcg (5,000 unit) capsule tiotropium 2.5 mcg-olodaterol 2.5 2 puff inhalation DAILY #4 grams 06/16/22 06/22/22 06/22/22 Rx mcg/actuation mist for inhalation (Stiolto Respimat) allopurinol 100 mg tablet 100 mg PO BID 06/18/22 06/21/22 Unknown History (Zyloprim) hydrocodone 5 mg-acetaminophen 325 1 tab PO Q6H PRN pain #10 tabs 06/22/22 Unknown Rx mg tablet miscellaneous medical supply 1 ea miscellaneous ONCE #1 ea 06/24/22 Unknown Rx Allergies Allergy/AdvReac Type Severity Reaction Status Date / Time celecoxib [From Celebrex] Allergy Intermediate ALGY-Rash Verified 06/18/22 06:18 Sulfa (Sulfonamide Allergy Intermediate ALGY-Rash Verified 06/18/22 06:18 Antibiotics) PFSH Acute PFSH: Medical History Anxiety Arthritis of both knees Asthma CAD (coronary artery disease) COPD (chronic obstructive pulmonary disease) Depressed Enrolled in chronic care management GERD (gastroesophageal reflux disease) History of MRSA infection History of vitamin D deficiency HLD (hyperlipidemia) Insomnia Mixed hyperlipidemia Shoulder pain Small cell lung cancer Smoking addiction Surgical History H/O lumpectomy History of bilateral tubal ligation History of D&C History of knee surgery Hx of cholecystectomy Hx of tonsillectomy Family History Father CAD (coronary artery disease) CT (mitral incompetence) COPD (chronic obstructive pulmonary disease) Lung disease Mother Cancer Lung disease Other Diabetes Hyperlipidemia Denies family history of Clotting disorder Dementia Psychiatric illness Chronic kidney disease (CKD) Suicide Anesthesia complication Bleeding disorder Hypertension Stroke Social History Smoking and tobacco status: former smoker (quit 15 days ago ) Alcohol intake: never Lives independently: Yes Household members: spouse Marital status: Vitals/I&O/Wt Last Vital Signs Temp 97.7 F 06/27/22 18:58 Pulse 87 06/27/22 21:12 Resp 20 H 06/27/22 21:12 BP 124/60 06/27/22 21:12 Pulse Ox 95 06/27/22 21:12 O2 Del Method 06/27/22 21:12 O2 Flow Rate 4 06/27/22 21:12 Weight last 48 hrs Weight 86.183 kg Physical Exam Const: COMMON NORMALS: no acute distress and patient oriented x3 HENMT: COMMON NORMALS: normocephalic HEAD & SCALP: normocephalic Neck/C-Spine: COMMON NORMALS: no JVD Resp: COMMON NORMALS: normal respiratory effort, No retractions and No use of accessory muscles OTHER: Decreased aeration on the left side of the lung, good air movement right lung Cardio: COMMON NORMALS: no JVD, regular rate, regular rhythm, S1 normal heart sound present and S2 normal heart sound present RATE: regular rate RHYTHM: regular rhythm HEART SOUNDS: S1 normal heart sound present and S2 normal heart sound present GI: COMMON NORMALS: Normal to inspection, nondistended, normoactive bowel sounds present, Soft to palpation, non-tender, No hepatosplenomegaly present, no masses and no bruits PALPATION: Yes Soft to palpation and Yes No hepatosplenomegaly present Extremity: NARRATIVE EXTREMITY EXAM: 2+ pitting edema bilateral lower extremity Neuro: COMMON NORMALS: patient oriented x3 Psych: COMMON NORMALS: mental status grossly normal Data : 06/27/22 19:15 06/27/22 19:15 A&P Assessment and plan (1) Acute on chronic respiratory failure with hypoxia: Status: Acute (2) Small cell lung cancer: Status: Acute (3) Pleural effusion: Status: Acute (4) CHF exacerbation: Status: Acute Plan Acute hypoxic respiratory failure -Likely secondary to pulm edema, left pleural effusion, fluid overload -No evidence of wheezing, not likely to be COPD exacerbation, Plan -Ultrasound thoracocentesis, consult interventional radiology tomorrow for a left thoracocentesis, I have ordered pleural studies, will need to discuss with pulmonology on-call about a possible Pleurx catheter -Lasix 40 IV twice daily -Monitor magnesium, potassium, urine output -DuoNeb as needed -Full code -SCDs for DVT prophylaxis, Lovenox on hold given plans for thoracocentesis Attestations Medical Necessity Statement*: Patient requires hospitalization, inpatient, greater than 2 midnights, for recurrent left pleural effusion, small cell lung cancer, CHF exacerbation, acute hypoxic respiratory failure Coding Level of Care Code Acute Dining Room Attendant Cafeteria for Echo Fwkeisha Diagnoses Acute on chronic respiratory failure with hypoxia J96.21 Small cell lung cancer C34.90 Pleural effusion J90 CHF exacerbation I50.9
[2022-06-27 23:36] LABS: Adenovirus Not Detected (NOT DETECT); Chlamydia Pneumoniae Not Detected (NOT DETECT); Coronavirus 229E,HKU1,NL63,OC4 Not Detected (NOT DETECT); Human Metapneumovirus Not Detected (NOT DETECT); Human Rhinovirus/Enterovirus Not Detected (NOT DETECT); Influenza A Not Detected (NOT DETECT); Influenza A H1 Not Detected (NOT DETECT); Influenza A H1-2009 Not Detected (NOT DETECT); Influenza A H3 Not Detected (NOT DETECT); Influenza B Not Detected (NOT DETECT); Mycoplasma Pneumoniae Not Detected (NOT DETECT); Parainfluenza Virus Type 1 Not Detected (NOT DETECT); Parainfluenza Virus Type 2 Not Detected (NOT DETECT); Parainfluenza Virus Type 3 Not Detected (NOT DETECT); Parainfluenza Virus Type 4 Not Detected (NOT DETECT); Respiratory Syncytial Virus A Not Detected (NOT DETECT); Respiratory Syncytial Virus B Not Detected (NOT DETECT); SARS-COV-2 Detected (NOT DETECT)
[2022-06-27] MEDS: ipratropium-albuterol 3 mL Neb INHALATION (23:51)
[2022-06-28] VITALS (12 sets, daily range): BP systolic 103–116; BP diastolic 51–70; PULSE 70–111; RESP 16–20; TEMP 36.5–36.8; O2SAT 90–99
[2022-06-28 00:12] LABS: Troponin 5 2HR 56.94 ng/L (0-10)
--- NOTE | 2022-06-28 01:11 | ECG_ITS ---
[facility] Test Date: 2022-06-28 Pat Name: Edilma Langston Department: Room: 267 Gender: Female Chemical Processing Technician: : 1955 Requested By: Kashmir Nunn Order Number: [id number] Todd MD: Silvina La M.D. Measurements Intervals [place] Rate: 91 P: 49 MA: 135 QRS: -38 QRSD: 140 T: 37 QT: 386 QTc: 476 Interpretive Statements SINUS RHYTHM RIGHT BUNDLE BRANCH BLOCK LEFT ANTERIOR FASCICULAR BLOCK Compared to ECG 06/27/2022 19:16:24 No significant change Electronically Signed On 06-28-2022 8:06:09 CDT by Silvina La M.D. [id number]
[2022-06-28 02:30] LABS: Basophils % 0.4 %; Hematocrit 49.3 % (37.0-47.0); Hemoglobin 16.3 g/dL (11.5-15.3); Lymphocytes # 0.5 10^3/uL (0.8-4.8); Lymphocytes % 6.8 %; Mean Corpuscular HGB Conc 33.1 g/dL (30.0-36.0); Mean Corpuscular Hemoglobin 31.2 pg (28.0-34.0); Mean Corpuscular Volume 94.4 fl (81-99); Monocytes # 0.2 10^3/uL (0.2-0.9); Monocytes % 3.2 %; Neutrophils # 5.86 10^3/uL (1.8-7.7); Neutrophils % 85.2 %; Nucleated Red Blood Cells % 0 %; Platelet Count 167 10^3/cmm (130-400); Red Blood Count 5.22 10^6/uL (4.1-5.3); Red Cell Distribution Width 12.5 % (12.1-15.1); White Blood Count 6.9 10^3/uL (4.0-10.0)
[2022-06-28 02:48] LABS: Troponin 5 6HR 59.74 ng/L (0-10)
[2022-06-28 03:05] LABS: Alanine Aminotransferase 47 U/L (0-33); Albumin Level 3.2 g/dL (3.5-5.2); Alkaline Phosphatase 208 U/L (35-105); Anion Gap 13.9 (5-19); Aspartate Amino Transferase 49 U/L (0-32); Blood Urea Nitrogen 21 mg/dL (8-23); Calcium 8.7 mg/dL (8.5-10.5); Carbon Dioxide 34 mmol/L (22-29); Chloride 96 mmol/L (98-107); Globulin 2.3 g/dL (1.3-4.6); Glomerular Filtration Rate 55.6 mL/min (90-130); Glucose 176 mg/dL (65-115); Magnesium 2.3 mg/dL (1.7-2.3); NT Pro B Type Natriuretic Pept 1270 pg/mL (0-125); Osmolality Calculated 299 mOsm/kg (285-295); Phosphorus 3.6 mg/dL (2.5-4.5); Sodium 141 mmol/L (136-145); Total Bilirubin 0.3 mg/dL (0.15-1.2); Total Protein 5.5 g/dL (6.6-8.7)
[2022-06-28 03:12] LABS: Potassium 2.9 mmol/L (3.5-5.1)
[2022-06-28] MEDS: ipratropium-albuterol 3 mL Neb INHALATION ×4 (03:26→21:54)
[2022-06-28] MEDS: potassium chloride premix 100 ML 25 MEQ IV (03:52)
[2022-06-28] MEDS: HYDROcodone-acetaminophen 5-325 mg Tablet 1 TAB PO (04:31)
--- NOTE | 2022-06-28 07:00 | XRR_ITS ---
PROCEDURE INFORMATION: Exam: XR Chest Exam date and time: 06/28/2022 5:39 AM Age: 66 years old Clinical indication: Shortness of breath; Prior surgery; Surgery date: 6+ months; Surgery type: Port; Patient HX: SOB follow up, lung CA TECHNIQUE: Imaging protocol: Radiologic exam of the chest. Views: 1 view. COMPARISON: CT chest con [id number] 06/27/2022 8:38 PM FINDINGS: Tubes, catheters and devices: Essentially stable position of right sided Port-A-Cath. Lungs: No definite CHF/pulmonary edema. Visible right lung appears essentially clear. Pleural spaces: As before, there is essentially complete opacification of the left hemithorax, compatible with a large left pleural effusion. The appearance is not significantly changed. There is continued mild shift of mediastinal structures to the right. No visible pneumothorax. Heart/Mediastinum: Heart size is within normal limits. Bones/joints: No significant acute finding. XR/XR chest 1V portable [id number] IMPRESSION: 1. As before, there is essentially complete opacification of the left hemithorax, see above discussion. 2. Other findings discussed above.
[2022-06-28] MEDS: pantoprazole DR 40 mg Tablet PO (08:54)
[2022-06-28] MEDS: allopurinol 100 mg Tablet PO ×2 (08:54→17:44)
--- NOTE | 2022-06-28 11:17 | PC.PHAR ---
pt brought in her medication bottles-pt states she is unsure of the names of all her meds states she only takes the medications she brought in and states she takes the meds the way the bottle has to take them-pt didnt bring in farxiga 10mg daily filled on 05/21/22 30d/s-rx filled on 06/01/22 for advair 250-50 1 p bid pts [facility] states they think that medication was dced and changed to stiolto-pt didnt bring in the stiolto inhaler or the levalbuterol neb solution-
[2022-06-28] MEDS: FUROsemide 10 mg/mL SDV 4mL 40 MG IVP ×3 (12:16→17:45)
[2022-06-28 15:41] LABS: D Dimer 7.22 ug/mIFEU (0-0.59)
[2022-06-28 15:43] LABS: C Reactive Protein 16.9 mg/L (0.0-4.9); Iron 71 ug/dL (37-145); Percent Saturation 38.3 % (20-50); Total Iron Binding Capacity 185 mcg/dl; Unsaturated Iron Binding 114 ug/dL (112-347)
[2022-06-28 15:58] LABS: Folate Level 5.8 ng/mL (4.8-37.3)
[2022-06-28 15:59] LABS: Vitamin B12 544 pg/mL (232-1245)
[2022-06-28] MEDS: dexamethasone 10 mg/mL INJ 6 MG IVP (16:31)
[2022-06-28] MEDS: remdesivir 200 MG in sodium chloride 0.9% (100 ml) 60 ML 100 MG IV (17:43)
[2022-06-28] MEDS: ascorbic acid 500 mg Tablet PO (17:44)
[2022-06-28] MEDS: ferrous gluconate 324 mg Tablet PO (17:44)
--- NOTE | 2022-06-28 18:08 | P.PN_ITS ---
Subjective Subjective: Hospital course, labs appreciated. Examination patient seen in bed with family at bedside. States she is feeling okay. Able to lie down comfortably. Denies any nausea, vomiting, headache. Denies any chest pain. Saturating more than 90% on 3 to 4 L oxygen supplementation Vitals/I&O/Wt Last Vital Signs Temp 98.1 F 06/28/22 16:00 Pulse 111 H 06/28/22 16:30 Resp 20 H 06/28/22 16:30 BP 109/57 06/28/22 16:00 Pulse Ox 93 06/28/22 16:30 O2 Del Method 06/28/22 16:30 O2 Flow Rate 3.5 06/28/22 16:30 06/28/22 06/28/22 06/28/22 06:59 14:59 22:59 Intake Total 100 / 100 240 / 340 Output Total 750 / 750 Balance -750 / -750 100 / 100 240 / 340 Weight last 48 hrs Weight 86.183 kg Physical Exam Const: COMMON NORMALS: no acute distress and patient oriented x3 HENMT: COMMON NORMALS: normocephalic HEAD & SCALP: normocephalic Neck/C-Spine: COMMON NORMALS: no JVD Resp: COMMON NORMALS: normal respiratory effort, No retractions and No use of accessory muscles OTHER: Decreased aeration on the left side of the lung, good air movement right lung Cardio: COMMON NORMALS: no JVD, regular rate, regular rhythm, S1 normal heart sound present and S2 normal heart sound present RATE: regular rate RHYTHM: regular rhythm HEART SOUNDS: S1 normal heart sound present and S2 normal heart sound present GI: COMMON NORMALS: Normal to inspection, nondistended, normoactive bowel sounds present, Soft to palpation, non-tender, No hepatosplenomegaly present, no masses and no bruits PALPATION: Yes Soft to palpation and Yes No hepatosplenomegaly present Extremity: NARRATIVE EXTREMITY EXAM: 2+ pitting edema bilateral lower extremity Neuro: COMMON NORMALS: patient oriented x3 Psych: COMMON NORMALS: mental status grossly normal Data : 06/28/22 02:08 06/28/22 02:08 A&P Assessment and plan (1) Acute on chronic respiratory failure with hypoxia: Most likely secondary to a combination of large malignant left-sided pleural effusion in setting of recent diagnosis of small lung cell cancer, less likely secondary to COVID-19 and CHF. Cannot rule out underlying pneumonia. Status: Acute (2) Pleural effusion: Malignant. Emily has had 2 thoracentesis within the last 3 weeks with most recently 10 days ago. Will consult pulmonology for possible Roman drain placement. Repeat CT scan chest without contrast. Status: Acute (3) COVID-19: Hypoxia secondary to COVID-19 pneumonia: Mild to moderate disease. Symptoms less likely secondary COVID-19. Most likely secondary to large pleural effusion. Will review oxygenation again. Preston drain placement and thoracentesis. If oxygenation improving most likely will finish only 3-day course of remdesivir. Oxygen supplementation keeping saturation over 88%. Dexamethasone 6 mg daily. Remdesivir to finish a 5-day course. Vitamin C, zinc. DuoNeb every 6 hour, budesonide twice daily Pulmonary toilet with incentive spirometry flutter valve. We will monitor inflammatory markers including CRP, D-dimer every 48 hours. If getting elevated will dose Actemra. Patient was made aware of the same and he has given verbal consent. Less likely pulmonary embolism. Check sputum culture, procalcitonin, urine Legionella, bacterial antigen, blood culture. Cannot rule out underlying pneumonia. Check MRSA swab. For now start on Augmentin and Levaquin as per creatinine clearance. Given hypoxia will try to keep patient as negative as possible. Check echocardiogram. Lasix as per fluid status. Strict input output charting, daily weights. Status: Acute (4) Small cell lung cancer: Follows up with Dr. Ramirez as an outpatient. Not started on chemotherapy yet as undergoing further evaluation. Status: Acute (5) CHF exacerbation: No previous known history. Check echocardiogram. Status: Acute Plan Analgesia: Morphine, Tylenol Glycemic control: Check A1c Nutrition: Cardiac diet, n.p.o. after midnight CODE STATUS: Full code PUD prophylaxis: Protonix DVT prophylaxis: SCDs Discharge planning: Home with home health possibly. Will need home oxygen evaluation prior to discharge. Continue with care at [facility] This documentation was created by [employer] pipe wrapping machine operator software. Every effort was made to ensure accuracy of pipe wrapping machine operator. Any obvious errors or omissions should be clarified with the author of the document. Attestations Medical Necessity Statement*: Requires continued hospitalization for management of acute on chronic hypoxic respiratory failure secondary to large pleural effusion in setting of lung cancer, COVID-19 pneumonia Coding Level of Care Code Acute Lead Systems Developer for Chg Fwd Diagnoses Acute on chronic respiratory failure with hypoxia J96.21 Pleural effusion J90 COVID-19 U07.1 Small cell lung cancer C34.90 CHF exacerbation I50.9
--- NOTE | 2022-06-28 19:44 | CTR_ITS ---
PROCEDURE INFORMATION: Exam: CT Chest Without Contrast; Diagnostic Exam date and time: 06/28/2022 8:56 PM Age: 66 years old Clinical indication: Shortness of breath; Prior surgery; Surgery date: 6+ months; Surgery type: Lumpectomy, santy; Additional info: Lung CA, malignant pleural effusion, resp faliure, covid TECHNIQUE: Imaging protocol: Diagnostic computed tomography of the chest without contrast. Radiation optimization: All CT scans at this facility use at least one of these dose optimization techniques: automated exposure control; mA and/or kV adjustment per patient size (includes targeted exams where dose is matched to clinical indication); or iterative reconstruction. COMPARISON: CT chest wo con [id number] 06/27/2022 8:38 PM RADIATION DOSE METRICS: Total DLP (mGy-cm): 565.35 FINDINGS: Tubes, catheters and devices: There is a right-sided Yowdiw-H-Cppt with tip in the superior vena cava. Lungs: Massive left pleural effusion has increased slightly since the prior exam so that only a tiny portion of the left lung apex is aerated. There is extensive compressive atelectasis/consolidation of the left lung. Multiple nodules are noted in the right lung with the largest being the spiculated nodule in the anterior right upper lobe measuring 2.1 x 1.3 cm. There is increasing ground-glass/airspace opacity in the right lung especially the right lower lobe concerning for progressing pneumonic infiltrate. Pleural spaces: Pleural base nodules/masses are noted on the left compatible with probable pleural base neoplasm such is mesothelioma is unchanged in size compared to the prior recent exam. There is no evidence of pneumothorax. No right pleural effusion. Heart: Unremarkable. No cardiomegaly. No pericardial effusion. There is moderate atherosclerotic calcification of the coronary arteries. Lymph nodes: Multiple enlarged lymph nodes/masses are noted in the epicardial fat measuring up to 3 cm in diameter. There is a 1.6 cm short axis right axillary lymph node. No right hilar adenopathy or mass. There is a 1.2 cm short axis lymph node adjacent to the distal esophagus image 36. Vasculature: Unremarkable. No aortic aneurysm. Liver: Innumerable liver nodules/masses are present compatible probable metastatic disease. Adrenal glands: Bilateral adrenal nodules are unchanged with the left measuring 2.3 cm in greatest dimension and the right measuring 1.8 cm in greatest dimension. Bones/joints: Bony destructive lesion with adjacent soft tissue mass destroying the spinous process of T11 is unchanged. No new fracture. Soft tissues: Soft tissue mass protruding from the spinous process of T11 measures approximately 3.1 x [address]/CT chest wo con [id number] IMPRESSION: 1. There is increasing ground-glass/airspace opacity in the right lung especially the right lower lobe concerning for progressing pneumonic infiltrate. 2. Larger giant left pleural effusion compared to the prior exam with extensive consolidation/compressive atelectasis left lung and multiple pleural based masses. Unchanged extensive thoracoabdominal metastatic disease. Fleischner Society follow up recommendations for incidental nodules are not indicated. Follow up per the patient's medical condition.
[2022-06-28] MEDS: atorvastatin 40 mg Tablet 80 MG PO (21:23)
[2022-06-28] MEDS: budesonide 0.5 mg/2 mL Neb INHALATION (21:54)
[2022-06-29] VITALS (18 sets, daily range): BP systolic 96–109; BP diastolic 52–70; PULSE 63–110; RESP 13–22; TEMP 36.5–36.8; O2SAT 89–95
[2022-06-29] MEDS: acetaminophen 325 mg Tablet 650 MG PO (01:54)
[2022-06-29 03:51] LABS: Add Urine Microscopic? NO; Charge for UA Resulting for Rev
[2022-06-29 03:58] LABS: Bilirubin Urine Neg (Negative); Blood Urine Neg (Negative); Glucose Urine UA Norm (Normal); Ketones Urine Negative (Negative); Leukocyte Esterase Urine Negative (Negative); Nitrate Urine Negative (Negative); Protein Urine Neg (Negative); Specific Gravity, Urine 1.015 (1.005-1.030); Urine Appearance Clear (CLEAR); Urine Color Yellow (Yellow); Urobilinogen Urine Norm (Negative); pH Urine 5 (5-7)
[2022-06-29 04:15] LABS: Urine Creatinine 112 mg/dL (28-217)
[2022-06-29] MEDS: ipratropium-albuterol 3 mL Neb INHALATION ×4 (05:34→20:57)
[2022-06-29 05:53] LABS: Eosinophil Urine No Eosinophils Seen
--- NOTE | 2022-06-29 06:00 | XRR_ITS ---
PROCEDURE INFORMATION: Exam: XR Chest Exam date and time: 06/29/2022 5:26 AM Age: 66 years old Clinical indication: Cough and shortness of breath; Prior surgery; Surgery date: 6+ months; Surgery type: Port; Patient HX: SOB coughing follow up covid TECHNIQUE: Imaging protocol: Radiologic exam of the chest. Views: 1 view. COMPARISON: CT chest con [id number] 06/28/2022 8:56 PM FINDINGS: Tubes, catheters and devices: Right subclavian Port-A-Cath is seen without change. Lungs: There is unchanged complete opacification of the left hemithorax, related to large left pleural effusion and lobar atelectasis as seen on the prior CT.. Slightly decreased right lung volumes. Increased mild right perihilar pulmonary vascular congestion is seen. Pleural spaces: No right pleural effusion or pneumothorax. Heart/Mediastinum: The heart size appears unchanged. The trachea is midline. Bones/joints: Postsurgical changes of the bilateral shoulders are seen with bilateral humeral head suture anchors. Soft tissues: Multiple external densities are seen overlying the chest, limiting assessment. XR/XR chest 1V portable [id number] IMPRESSION: Unchanged complete opacification of the left hemithorax. Slightly decreased right lung volumes. Increased mild right perihilar pulmonary vascular congestion.
[2022-06-29 06:13] LABS: Basophils % 0.4 %; Hematocrit 51.3 % (37.0-47.0); Hemoglobin 16.7 g/dL (11.5-15.3); Lymphocytes # 0.6 10^3/uL (0.8-4.8); Lymphocytes % 7.1 %; Mean Corpuscular HGB Conc 32.6 g/dL (30.0-36.0); Mean Corpuscular Hemoglobin 30.6 pg (28.0-34.0); Mean Platelet Volume 10.5 fL (7.4-10.4); Monocytes # 0.4 10^3/uL (0.2-0.9); Monocytes % 4.1 %; Neutrophils # 7.62 10^3/uL (1.8-7.7); Nucleated Red Blood Cells % 0 %; Platelet Count 186 10^3/cmm (130-400); Red Blood Count 5.46 10^6/uL (4.1-5.3); Red Cell Distribution Width 12.7 % (12.1-15.1); White Blood Count 9.1 10^3/uL (4.0-10.0)
[2022-06-29 06:26] LABS: Potassium, Radom Urine 61 mmol/L; Urine Random Chloride 26 mmol/L
[2022-06-29 06:27] LABS: Urine Random Sodium 17 mmol/L
[2022-06-29 06:31] LABS: D Dimer 5.56 ug/mIFEU (0-0.59)
[2022-06-29 06:44] LABS: Estmated Average Glucose 154
[2022-06-29 06:52] LABS: NT Pro B Type Natriuretic Pept 2149 pg/mL (0-125)
[2022-06-29 07:03] LABS: Alanine Aminotransferase 47 U/L (0-33); Alkaline Phosphatase 197 U/L (35-105); Anion Gap 14.5 (5-19); Aspartate Amino Transferase 43 U/L (0-32); Blood Urea Nitrogen 21 mg/dL (8-23); C Reactive Protein 20.4 mg/L (0.0-4.9); Calcium 8.8 mg/dL (8.5-10.5); Carbon Dioxide 38 mmol/L (22-29); Chloride 94 mmol/L (98-107); Globulin 3.2 g/dL (1.3-4.6); Glomerular Filtration Rate 55.6 mL/min (90-130); Glucose 124 mg/dL (65-115); Magnesium 2.1 mg/dL (1.7-2.3); Osmolality Calculated 302 mOsm/kg (285-295); Phosphorus 3.9 mg/dL (2.5-4.5); Sodium 144 mmol/L (136-145); Total Bilirubin 0.4 mg/dL (0.15-1.2); Total Protein 6.2 g/dL (6.6-8.7)
[2022-06-29 07:06] LABS: Potassium 2.5 mmol/L (3.5-5.1)
[2022-06-29] MEDS: budesonide 0.5 mg/2 mL Neb INHALATION ×2 (07:47→20:57)
[2022-06-29] MEDS: FUROsemide 10 mg/mL SDV 4mL 40 MG IVP ×2 (08:38→18:04)
[2022-06-29] MEDS: zinc gluconate 50 mg Tablet PO (08:39)
[2022-06-29] MEDS: allopurinol 100 mg Tablet PO ×2 (08:39→18:04)
[2022-06-29] MEDS: ascorbic acid 500 mg Tablet PO ×2 (08:39→18:04)
[2022-06-29] MEDS: amoxicillin-clav 875-125 mg Tablet 1 TAB PO ×2 (08:39→18:04)
[2022-06-29] MEDS: potassium chloride ER 20 mEq Tablet 100 MEQ PO (08:39)
[2022-06-29] MEDS: ferrous gluconate 324 mg Tablet PO ×2 (08:39→18:04)
[2022-06-29] MEDS: levoFLOXacin 500 mg Tablet PO (08:39)
[2022-06-29] MEDS: pantoprazole DR 40 mg Tablet PO (08:40)
--- NOTE | 2022-06-29 10:24 | PC.NURSE ---
0700- 0600 levaquin not given on jan. contacted prev nurse, cedric ferraro to assure med not given. Nurse reported the med was not given if not scanned. medication scanned and administered. potassium of 2.5 this am. physician notified immediately. dr. reagan gave order for po potassium of 100mEq. order entered and medication administered.
--- NOTE | 2022-06-29 14:29 | USCV_ITS ---
Edilma Langston Age: 66 Gender: F : 1955 Exam Date: 06/29/2022 10:29 Ordering Phys: Daniel Bliss MD Technologist: MARLEEN Exam Location: [facility] – [place] Indication: SOB, COVID + BP: / HR: Rhythm: Sinus Technical Quality: Very technically difficult study MEASUREMENTS (Male / Female) Normal Values FINDINGS Left Ventricle Right Ventricle Right Atrium Left Atrium Mitral Valve Aortic Valve Tricuspid Valve Pulmonic Valve Pericardium Aorta IVC CONCLUSIONS This is an uninterpretable study. No cardiac windows available. Pleural effusion noted Dr. Rupesh Constantino MD (Electronically Signed) Final Date: 29 June 2022 15:11 S
[2022-06-29] MEDS: HYDROmorphone 1 mg/mL INJ 1 mL 0.5 MG IVP (14:33)
--- NOTE | 2022-06-29 14:50 | PC.NURSE ---
1450 physician at bed side for left pleurx cath placement. consent signed, time out performed, physician prepped side with julia. pt on continuous monitor of pulse ox and hear rate. pt premedicated with 0.2 dilaudid ivp, see jan. Pt's hr remained 107 with an O2 of 90 or greater for the entirety of the procedure. Procedure ended at 1530. Pt tolerated well. 1L of fluid drained. transparent dressing applied. Orders given for the film processing shift supervisor to drain 1L and the next day shift to drain additional liter on 06/30/22.
--- NOTE | 2022-06-29 15:44 | XRR_ITS ---
PROCEDURE INFORMATION: Exam: XR Chest Exam date and time: 06/29/2022 4:00 PM Age: 66 years old Clinical indication: Device placement; Other: Post pleurex catheter placement; Prior surgery; Surgery date: Post-operative (0-2 days) TECHNIQUE: Imaging protocol: Radiologic exam of the chest. Views: 1 view. COMPARISON: CR (CHEST, ) 06/29/2022 5:26 AM FINDINGS: Tubes, catheters and devices: Stable [id number]-A-Rerd catheter. Left-sided new chest tube. Lungs: The there is stable total opacification left hemithorax. Clear right lung. Pleural spaces: Unremarkable. No pleural effusion. No pneumothorax. Heart/Mediastinum: No midline shift. Bones/joints: Unremarkable. XR/XR chest 1V portable [id number] IMPRESSION: New left-sided chest tube with no change in the appearance of the chest. The left hemithorax is again totally opacified.
--- NOTE | 2022-06-29 15:45 | P.CONIM_ITS ---
Providers/Reason For Consult Consulting Physician/Specialty*: Can Zee MD FCCP/Pulmonary Critical Care Reason for Consult*: recurrent malignant left pleural effusion Requesting Physician: Daniel Bliss MD Attending Physician: Daniel Bliss MD Primary Care Provider: Tri Ludwig NP History of Present Illness History of Present Illness Edilma Langston is a 66-year-old female with a history of COPD, initially presented to [facility] on May 30, 2022 with progressive shortness of breath which did not respond to prednisone, she underwent CT scan of the chest on May 30, 2022 which showed large left pleural effusion, stranding and patchy opacities are seen within the left hemithorax superimposed over pleural effusion.? Ill-defined soft tissue attenuation seen in the left upper hemithorax, size about 6.4 x 5.2 x 4.7 cm.? There is a mildly irregular spiculated pulmonary nodule seen in right upper lobe size 1.4 x 2 x 2.3 cm and ill-defined hypoattenuation lesions within the liver, largest is seen in the right hepatic lobe measuring approximately 3 cm in diameter? Highly suspicious for metastatic disease.? On May 31, 2022 she underwent left thoracentesis and pleural fluid cytology confirmed metastatic carcinoma based on immunohistochemistry.? 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 Patient has longstanding history of smoking and still smoking about a pack a day, denies alcohol use.,? She is on home oxygen for COPD. She was seen by my collegue Dr. Reeder lungs today in clinic after her diagnosis. He optimized her COPD medications and recommended to use Bevespi and leave albuterol. Pulmonary function tests were deferred due to pleural effusion. She was requiring 4 L supplemental oxygen at home. Patient became more dyspneic and has to undergo thoracentesis for the second time 10 days ago-about 1400 cc fluid is drained. Postprocedure chest x-ray did not improve much-raising suspicion for anteriorly loculated effusion. She came back to emergency room on 06/27/2022 with increasing dyspnea and also worsening bilateral extremity edema.She was taking Lasix 20 Mg as needed at home. CT chest imaging reviewed increased size of large left pleural effusion with extensive consolidation/compressive atelectasis of left lung and multiple pleural-based masses. Fluid does not appear to be loculated. There is also a concern that some part of this pleural effusion can be from atelectasis of the left lung due to possible endobronchial mass lesion. However it is hard to say at this point due to large pleural effusion contributing to compressive atelectasis. Patient had echocardiogram today morning which was un interpretative due to significant left pleural effusion. Pulmonary consulted for recurrent malignant left pleural effusion causing dyspnea. Seen patient at bedside today. Her sister was present at bedside. Patient complained about dyspnea but denied any fever, chills, hemoptysis Patient has seen oncology 2 weeks ago and had a Chemo-Port placed 1 week ago. Patient to follow-up with oncology and does not know the start date for her chemo yet. Review of Systems General: Reports: 10 or more systems reviewed and unremarkable except in HPI and below Medications/Allergies Home Medications Medication Instructions Recorded Confirmed Last Taken Type omeprazole 40 mg capsule,delayed 40 mg PO DAILY 8 weeks #60 caps 05/14/22 06/28/22 06/21/22 Rx release ezetimibe 10 mg tablet (Zetia) 10 mg PO DAILY 05/30/22 06/28/22 06/21/22 History rosuvastatin 40 mg tablet 40 mg PO BEDTIME 05/30/22 06/28/22 06/21/22 History docusate sodium 100 mg capsule 100 mg PO DAILY 06/10/22 06/28/22 06/21/22 History furosemide 20 mg tablet (Lasix) 20 mg PO DAILY PRN edema 30 days 06/10/22 06/28/22 06/21/22 Rx #30 tabs levalbuterol HCl 0.63 mg/3 mL 0.63 mg (3 mL) inhalation TID PRN 06/10/22 06/28/22 06/21/22 Rx solution for nebulization shortness of breath or wheezing 30 days #270 mL tiotropium 2.5 mcg-olodaterol 2.5 2 puff inhalation DAILY #4 grams 06/16/22 06/28/22 06/22/22 Rx mcg/actuation mist for inhalation (Stiolto Respimat) allopurinol 100 mg tablet 100 mg PO BID 06/18/22 06/28/22 Unknown History (Zyloprim) miscellaneous medical supply 1 ea miscellaneous ONCE #1 ea 06/24/22 06/28/22 Unknown Rx cholecalciferol (vitamin D3) 1,250 50,000 unit PO Q7D 06/28/22 06/28/22 Unknown History mcg (50,000 unit) capsule hydrocodone 5 mg-acetaminophen 325 1 tab PO Q6H PRN Pain 06/28/22 06/28/22 Unknown History mg tablet levalbuterol tartrate 45 2 puff inhalation Q6H PRN 06/28/22 06/28/22 Unknown History mcg/actuation aerosol inhaler Shortness Of Breath Allergies Allergy/AdvReac Type Severity Reaction Status Date / Time celecoxib [From Celebrex] Allergy Intermediate ALGY-Rash Verified 06/18/22 06:18 Sulfa (Sulfonamide Allergy Intermediate ALGY-Rash Verified 06/18/22 06:18 Antibiotics) Current Medications Generic Name Dose Route Start Last Admin Trade Name Freq PRN Reason Stop Dose Admin Acetaminophen 650 mg 06/27/22 22:44 06/29/22 01:54 Acetaminophen 325 Mg Tablet PO 650 mg Q6H PRN Administration Mild/Mod Pain Or Temp >/= 101 Hydrocodone Bitart/Acetaminophen 1 tab 06/27/22 22:44 06/28/22 04:31 Hydrocodone-Acetaminophen 5-325 Mg Tablet PO 1 tab Q6H PRN Administration pain Albuterol/Ipratropium 3 ml 06/28/22 00:00 06/29/22 11:55 Ipratropium-Albuterol 3 Ml Neb INHALATION Not Given Q4H.RESPIRATORY LEÓN Allopurinol 100 mg 06/28/22 09:00 06/29/22 08:39 Allopurinol 100 Mg Tablet PO 100 mg BID LEÓN Administration Amoxicillin/Clavulanate Potassium 1 tab 06/29/22 09:00 06/29/22 08:39 Amoxicillin-Clav 875-125 Mg Tablet PO 1 tab BID LEÓN Administration Protocol Ascorbic Acid 500 mg 06/28/22 18:00 06/29/22 08:39 Ascorbic Acid 500 Mg Tablet PO 500 mg BID LEÓN Administration Atorvastatin Calcium 80 mg 06/28/22 21:00 06/28/22 21:23 Atorvastatin 40 Mg Tablet PO 80 mg BEDTIME LEÓN Administration Budesonide 0.5 mg 06/28/22 20:00 06/29/22 07:47 Budesonide 0.5 Mg/2 Ml Neb INHALATION 0.5 mg BID.RESPIRATORY LEÓN Administration Dexamethasone 6 mg 06/28/22 15:00 06/28/22 16:31 Dexamethasone 10 Mg/Ml Inj IVP 6 mg Q24H LEÓN Administration Ferrous Gluconate 324 mg 06/28/22 18:00 06/29/22 08:39 Ferrous Gluconate 324 Mg Tablet PO 324 mg BIDWM LEÓN Administration Furosemide 40 mg 06/28/22 18:00 06/29/22 08:38 Furosemide 10 Mg/Ml Sdv 4ml IVP 40 mg BID LEÓN Administration Levofloxacin 500 mg 06/29/22 06:00 06/29/22 08:39 Levofloxacin 500 Mg Tablet PO 500 mg DAILY@0600 LEÓN Administration Protocol Pantoprazole Sodium 40 mg 06/28/22 09:00 06/29/22 08:[address] 40 Mg Tablet PO 40 mg DAILY LEÓN Administration Zinc Gluconate 50 mg 06/29/22 09:00 06/29/22 08:39 Zinc Gluconate 50 Mg Tablet PO 50 mg DAILY LEÓN Administration PFSH Acute PFSH: Medical History Anxiety Arthritis of both knees Asthma CAD (coronary artery disease) COPD (chronic obstructive pulmonary disease) Depressed Enrolled in chronic care management GERD (gastroesophageal reflux disease) History of MRSA infection History of vitamin D deficiency HLD (hyperlipidemia) Insomnia Mixed hyperlipidemia Shoulder pain Small cell lung cancer Smoking addiction Surgical History H/O lumpectomy History of bilateral tubal ligation History of D&C History of knee surgery Hx of cholecystectomy Hx of tonsillectomy Family History Father CAD (coronary artery disease) CT (mitral incompetence) COPD (chronic obstructive pulmonary disease) Lung disease Mother Cancer Lung disease Other Diabetes Hyperlipidemia Denies family history of Clotting disorder Dementia Psychiatric illness Chronic kidney disease (CKD) Suicide Anesthesia complication Bleeding disorder Hypertension Stroke Social History Smoking and tobacco status: former smoker (quit 15 days ago ) Alcohol intake: never Lives independently: Yes Household members: spouse Marital status: Vitals/I&O/Wt Last Vital Signs Temp 98.2 F 06/29/22 12:00 Pulse 107 H 06/29/22 15:40 Resp 22 H 06/29/22 15:40 BP 103/70 06/29/22 15:40 Pulse Ox 95 06/29/22 15:40 O2 Del Method 06/29/22 15:40 O2 Flow Rate 2 06/29/22 15:40 06/29/22 06/29/22 06/29/22 06:59 14:59 22:59 Output Total 300 / 300 Balance -300 / 860 Weight last 48 hrs Weight 190 lb Physical Exam Narrative: General: alert, in mild respiratory distress requiring 4 L nasal cannula, lying on bed HEENT: conj clear, EOMI, PERRL, mmm, Neck: supple, no meningismus Heme: no cervical LAP Pulmonary: Reduced breath sounds on left lung Cardiovascular: rrr, nl s1s2, no mrg Abdomen: soft, nt, nd, no r/g, bs+ Extremities: pulses +, 1+ pitting pedal edema, no c/c : no CVA tenderness Skin: intact, no rash MSK: no back or neck pain Neurologic: grossly intact Data : 06/29/22 05:17 06/29/22 19:20 Other Labs: Radiology Impressions Chest CT 06/28/22 19:44 IMPRESSION: 1. There is increasing ground-glass/airspace opacity in the right lung especially the right lower lobe concerning for progressing pneumonic infiltrate. 2. Larger giant left pleural effusion compared to the prior exam with extensive consolidation/compressive atelectasis left lung and multiple pleural based masses. Unchanged extensive thoracoabdominal metastatic disease. Fleischner Society follow up recommendations for incidental nodules are not indicated. Follow up per the patient's medical condition. Chest X-Ray 06/29/22 15:44 IMPRESSION: New left-sided chest tube with no change in the appearance of the chest. The left hemithorax is again totally opacified. Laboratory Results WBC 9.1 10^3/uL (4.0-10.0) 06/29/22 05:17 RBC 5.46 10^6/uL (4.1-5.3) H 06/29/22 05:17 Hgb 16.7 g/dL (11.5-15.3) H 06/29/22 05:17 Hct 51.3 % (37.0-47.0) H 06/29/22 05:17 MCV 94.0 fl (81-99) 06/29/22 05:17 MCH 30.6 pg (28.0-34.0) 06/29/22 05:17 MCHC 32.6 g/dL (30.0-36.0) 06/29/22 05:17 RDW 12.7 % (12.1-15.1) 06/29/22 05:17 Plt Count 186 10^3/cmm (130-400) 06/29/22 05:17 MPV 10.5 fL (7.4-10.4) H 06/29/22 05:17 Neut % (Auto) 84.0 % 06/29/22 05:17 Lymph % (Auto) 7.1 % 06/29/22 05:17 [place] % (Auto) 4.1 % 06/29/22 05:17 Eos % (Auto) 0.0 % 06/29/22 05:17 Baso % (Auto) 0.4 % 06/29/22 05:17 Neut # (Auto) 7.62 10^3/uL (1.8-7.7) 06/29/22 05:17 Lymph # (Auto) 0.6 10^3/uL (0.8-4.8) L 06/29/22 05:17 [place] # (Auto) 0.4 10^3/uL (0.2-0.9) 06/29/22 05:17 Eos # (Auto) 0.0 10^3/uL (0.0-0.8) 06/29/22 05:17 Baso # (Auto) 0.0 10^3/uL (0.0-0.1) 06/29/22 05:17 Nucleated RBC % (auto) 0 % 06/29/22 05:17 Nucleated RBCs # 0.0 /100WBC 06/29/22 05:17 D-Dimer 5.56 ug/mIFEU (0-0.59) H 06/29/22 05:17 Specimen Type Arterial 06/27/22 19:23 Sample Site Radial, left 06/27/22 19:23 ABG pH 7.50 (7.35-7.45) H 06/27/22 19:23 ABG pCO2 44.4 mmHg (35-45) 06/27/22 19:23 ABG pO2 73.4 mmHg (80.0-100.0) L 06/27/22 19:23 ABG HCO3 34.2 mmol/L (22-26) H 06/27/22 19:23 ABG Base Excess 9.5 mmol/L (-2.0-2.0) H 06/27/22 19:23 Mihir Test Pos 06/27/22 19:23 Hematocrit 51.0 % (37-47) H 06/27/22 19:23 Hgb O2 Saturation 94.4 % (95-100) L 06/27/22 19:23 Carboxyhemoglobin 0.9 %THgb (0.4-20.1) 06/27/22 19:23 Methemoglobin 0.7 % (0.4-1.5) 06/27/22 19:23 Total Hemoglobin 16.7 g/dL (12-16) H 06/27/22 19:23 O2 Delivery Device Nc 06/27/22 19:23 O2 Liters/Min 5.0 % 06/27/22 19:23 Morgue Technician ID [place] 06/27/22 19:23 Sodium Cancelled 06/29/22 19:20 Potassium Cancelled 06/29/22 19:20 Chloride Cancelled 06/29/22 19:20 Carbon Dioxide Cancelled 06/29/22 19:20 Anion Gap Cancelled 06/29/22 19:20 BUN Cancelled 06/29/22 19:20 Creatinine Cancelled 06/29/22 19:20 GFR Calculation Cancelled 06/29/22 19:20 Glucose Cancelled 06/29/22 19:20 POC Glucose 178 mg/dL (70-110) H 06/29/22 21:03 Estimat Average Glucose 154 06/29/22 05:17 Hemoglobin A1c 7.0 % (4.0-6.0) H 06/29/22 05:17 Calculated Osmolality Cancelled 06/29/22 19:20 Lactic Acid 1.3 mmol/L (0.5-2.2) 06/27/22 19:25 Calcium Cancelled 06/29/22 19:20 Phosphorus 3.9 mg/dL (2.5-4.5) 06/29/22 05:17 Magnesium 2.1 mg/dL (1.7-2.3) 06/29/22 05:17 Iron 71 ug/dL (37-145) 06/28/22 14:51 TIBC 185 mcg/dl 06/28/22 14:51 % Saturation 38.3 % (20-50) 06/28/22 14:51 Unsat Iron Binding 114 ug/dL (112-347) 06/28/22 14:51 Total Bilirubin 0.4 mg/dL (0.15-1.2) 06/29/22 05:17 AST 43 U/L (0-32) H 06/29/22 05:17 ALT 47 U/L (0-33) H 06/29/22 05:17 Alkaline Phosphatase 197 U/L (35-105) H 06/29/22 05:17 Troponin T Baseline 73 ng/L (0-10) H 06/27/22 19:15 Troponin T 120 Minute 56.94 ng/L (0-10) H 06/27/22 23:11 Delta Troponin T -16.06 ABS# (0-10) L 06/27/22 23:11 Troponin T Hi Sens 6Hr 59.74 ng/L (0-10) H 06/28/22 02:08 Troponin T Hi Sens 6Hr Delta -13.26 ng/L (0-12) L 06/28/22 02:08 C-Reactive Protein 20.4 mg/L (0.0-4.9) H 06/29/22 05:17 NT-Pro-B Natriuret Pep 2149 pg/mL (0-125) H 06/29/22 05:17 Total Protein 6.2 g/dL (6.6-8.7) L 06/29/22 05:17 Albumin 3.0 g/dL (3.5-5.2) L 06/29/22 05:17 Globulin 3.2 g/dL (1.3-4.6) 06/29/22 05:17 Vitamin B12 544 pg/mL (232-1245) 06/28/22 14:51 Folate 5.8 ng/mL (4.8-37.3) 06/28/22 14:51 Procalcitonin 11.60 ng/mL (0-0.5) H 06/29/22 05:17 Urine Color Yellow (Yellow) 06/29/22 03:41 Urine Appearance Clear (CLEAR) 06/29/22 03:41 Urine pH 5 (5-7) 06/29/22 03:41 Ur Specific [place] 1.015 (1.005-1.030) 06/29/22 03:41 Urine Protein Neg (Negative) 06/29/22 03:41 Urine Glucose (UA) Norm (Normal) 06/29/22 03:41 Urine Ketones Negative (Negative) 06/29/22 03:41 Urine Blood Neg (Negative) 06/29/22 03:41 Urine Nitrate Negative (Negative) 06/29/22 03:41 Urine Bilirubin Neg (Negative) 06/29/22 03:41 Urine Urobilinogen Norm mg/dL (Negative) 06/29/22 03:41 Ur Leukocyte Esterase Negative (Negative) 06/29/22 03:41 Ur Eosinophil Smear Not Reportable 06/29/22 03:41 Urine Eosinophils No eosinophils seen 06/29/22 03:41 Ur Random Sodium 17 mmol/L 06/29/22 03:41 Ur Random Potassium 61 mmol/L 06/29/22 03:41 Ur Random Chloride 26 mmol/L 06/29/22 03:41 Urine Creatinine 112 mg/dL (28-217) 06/29/22 03:41 Fluid Color Red 06/27/22 16:30 Fluid Appearance Cloudy 06/27/22 16:30 Fluid WBC 1275 /uL 06/27/22 16:30 Fluid RBC 166.000 10^3/uL 06/27/22 16:30 Fluid Hematocrit 1.6 % 06/27/22 16:30 Fld Polynuclear WBCs # 0.030 06/27/22 16:30 Fld Polynuclear WBCs % 2.300 % 06/27/22 16:30 Fl Mononucl WBCs #(Auto) 1.245 06/27/22 16:30 Fl Mononuclear % Auto 97.700 % 06/27/22 16:30 Fluid Albumin 2.2 g/dL 06/27/22 16:30 Fluid Creatinine 1.01 (0.5-0.9) H 06/27/22 16:30 Pleural pH 8.00 (6.5-7.5) H 06/27/22 16:30 Pleural Total Protein 3.8 g/dL 06/27/22 16:30 Pleural LDH 1088 U/L 06/27/22 16:30 Pleural Glucose 119.0 mg/dL 06/27/22 16:30 Pleural Amylase 66.0 U/L 06/27/22 16:30 Pleural Triglycerides 58 mg/dL 06/27/22 16:30 Coronavirus 229E (PCR) Not detected (NOT DETECT) 06/27/22 19:26 SARS-CoV-2 (PCR) Detected (NOT DETECT) A 06/27/22 19:26 Micro: Microbiology 06/29/22 03:41 Bacterial Antigens - Final Urine Kidney 06/29/22 03:41 Legionella Urinary Antigen - Final Urine,Clean Catch A&P Assessment and plan (1) Acute on chronic respiratory failure with hypoxia: Status: Acute (2) Recurrent pleural effusion on left: Status: Acute (3) Small cell lung cancer: Status: Acute (4) COVID-19: Status: Acute (5) CHF exacerbation: Status: Acute (6) COPD (chronic obstructive pulmonary disease): Status: Acute Plan #Recurrent left pleural [id number] diagnosed small cell cancer #Acute on chronic hypoxia secondary to large pleural effusion and small cell lung cancer -Patient is currently following up with oncology and had port placed on 06/22/2022-yet to start her chemotherapy -Had 1000 cc drained 05/31/2022; 1400 cc drained on 06/18/2022 -CT imaging 06/28/2022 yesterday-showed very large left pleural effusion with compressive atelectasis of left lung-with no obvious loculations -Due to recurrent fluid accumulation in left pleural cavity requiring to frequent thoracentesis-I recommended Pleurx catheter -Explained patient, patient's sister at bedside, daughter over phone-about steven lewis complications of infection in pleural cavity due to repeated thoracentesis as well as Pleurx catheter; they verbalized understanding and agreed with placement of Pleurx catheter -After insertion of Pleurx catheter-drained 1 L hemorrhagic fluid and fluid analysis was lymphocyte predominant exudative; glucose 119, cultures pending -Plan is to drain more fluid over the next couple of shifts -bank manager/neighborhood planner to oversee Pleurx drainage irrigation prior to discharge, #? CHF exacerbation -There is a concern some amount of fluid may be from suspected CHF as BNP is significantly elevated-however today's echocardiogram was uninterpretable due to large left pleural effusion-patient is currently receiving 40 Mg Lasix twice daily -Monitor input output and try to keep net negative to even fluid balance -Check electrolytes and supplement accordingly #Recent COVID-19 infection -Currently she is at her baseline 4 L supplemental oxygen -She is receiving remdesivir and dexamethasone -Monitor oxygen saturation #COPD and chronic smoker #[id number] smoking history -May need PFTs as outpatient once pleural effusion is drained -Currently on DuoNeb nebulization every 4 hour scheduled -She can continue her Bevespi and Xopenex as outpatient Patient can follow-up in 10 days at pulmonary clinic for suture removal Recommendations conveyed to hospitalist, RN taking care of the patient Consult Attestations Medical Necessity Statement: Deferred to hospitalist Time Spent in Patient Care: Greater than 35 minutes (>than 50% of time spent in counselling and/or direct pt care on unit) . Coding Level of Care Code New Pt Acute Tunnel Mucker for Echo Fwkeisha Patient Type New History Comprehensive Exam Comprehensive Medical Decision Making Moderate Complexity Diagnoses Acute on chronic respiratory failure with hypoxia J96.21 Recurrent pleural effusion on left J90 Small cell lung cancer C34.90 COVID-19 U07.1 CHF exacerbation I50.9 COPD (chronic obstructive pulmonary disease) J44.9 Time Spent (min) 38
--- NOTE | 2022-06-29 15:45 | PM.ACPR ---
Procedure/Consent Time out: Time Out Performed: Yes Consent: Consent for Procedure: Consent obtained from patient, Risks & Benefits reviewed and Agrees to proceed with procedure Procedure Narrative: PREOPERATIVE DIAGNOSIS: Recurrent malignant left pleural effusion. POSTOPERATIVE DIAGNOSIS: Recurrent malignant left pleural effusion. PROCEDURE PERFORMED: Ultrasound-guided left PleurX catheter placement. SURGEON: Can Zee MD, [facility] ANESTHESIA: 15 cc 1% local lidocaine and 80.3 Mg IV push prior to procedure INDICATION FOR PROCEDURE: Recurrent left pleural effusion in patient with recently diagnosed small cell cancer. Patient was drained twice in last 1 month on 05/31/2022 (1000 cc ) and again on 06/18/2022 (1400 cc ). She is admitted on 06/27/2022 for recurrent large left pleural effusion. In an effort to palliate her respiratory symptoms, PleurX catheter placement was considered for home drainage. The patient and her family understood the risks and possible complications of the procedure and wished to proceed. DESCRIPTION OF PROCEDURE: The patient was placed right lateral position. Prior to procedures he received with dilated current pharyngeal IV push. The patient was then positioned with the head up. The left chest and upper abdomen were prepped and draped in the usual sterile fashion. Lidocaine 1% was used to infiltrate two areas; ; one in the left upper quadrant where the tube would exit and the other in the area marked using ultrasound guidance along the anterior axillary line. A small counterincision was made in the left upper quadrant area. Through the anterior axillary line area, the pleural space was accessed by Seldinger technique. The counterincision was made around the guidewire and then the PleurX catheter was tunneled from the left upper quadrant small incision to the one overlying the ribs. After appropriate dilation a sheath introducer was then passed over the wire and then the PleurX catheter was placed through the sheath introducer. There was good return of fluid. The small counterincision was closed with Monocryl stitch.The catheter was capped off, and sterile dressings were applied. A suction bulb was connected to the Pleurx catheter and drained about 1000 cc hemorrhagic fluid. Plan is to drain another liter by today cnc machinist 2nd shift. We will drain 1 more liter tomorrow. The patient tolerated procedure well without any complications. The patient vitals remained stable. OPERATIVE FINDINGS: 1 liters of hemorrhagic/serous fluid was withdrawn. There were no overt bleeding complications. Estimated blood loss: 5 to 10 cc Immediate complications: None Acute Procedures Epistaxis Control: Time out performed: Yes
[2022-06-29] MEDS: dexamethasone 10 mg/mL INJ 6 MG IVP (15:56)
--- NOTE | 2022-06-29 16:36 | P.PN_ITS ---
Subjective Subjective: No acute events overnight. Patient today morning underwent Roman drain placement and 1 L of fluid was drained with plan to drain again later in the night. Patient states she is feels a lot better after fluid draining. Continues to remain on 2 to 3 L of oxygen supplementation. Vitals/I&O/Wt Last Vital Signs Temp 98.2 F 06/29/22 12:00 Pulse 110 H 06/29/22 16:01 Resp 15 06/29/22 15:55 BP 103/70 06/29/22 15:55 Pulse Ox 95 06/29/22 15:55 O2 Del Method 06/29/22 15:55 O2 Flow Rate 3.5 06/29/22 15:50 06/29/22 06/29/22 06/29/22 06:59 14:59 22:59 Output Total 300 / 300 1000 / 1000 Balance -300 / 860 -1000 / -1000 Weight last 48 hrs Weight 86.183 kg Physical Exam Const: COMMON NORMALS: no acute distress and patient oriented x3 HENMT: COMMON NORMALS: normocephalic HEAD & SCALP: normocephalic Neck/C-Spine: COMMON NORMALS: no JVD Resp: COMMON NORMALS: normal respiratory effort, No retractions and No use of accessory muscles OTHER: Decreased aeration on the left side of the lung, good air movement right lung Cardio: COMMON NORMALS: no JVD, regular rate, regular rhythm, S1 normal heart sound present and S2 normal heart sound present RATE: regular rate RHYTHM: regular rhythm HEART SOUNDS: S1 normal heart sound present and S2 normal heart sound present GI: COMMON NORMALS: Normal to inspection, nondistended, normoactive bowel sounds present, Soft to palpation, non-tender, No hepatosplenomegaly present, no masses and no bruits PALPATION: Yes Soft to palpation and Yes No hepatosplenomegaly present Extremity: NARRATIVE EXTREMITY EXAM: 2+ pitting edema bilateral lower extremity Neuro: COMMON NORMALS: patient oriented x3 Psych: COMMON NORMALS: mental status grossly normal Data : 06/29/22 05:17 06/29/22 05:17 Micro: Microbiology 06/29/22 03:41 Bacterial Antigens - Final Urine Kidney 06/29/22 03:41 Legionella Urinary Antigen - Final Urine,Clean Catch A&P Assessment and plan (1) Acute on chronic respiratory failure with hypoxia: Most likely secondary to a combination of large malignant left-sided pleural effusion in setting of recent diagnosis of small lung cell cancer, less likely secondary to COVID-19 and CHF. Cannot rule out underlying pneumonia. Status: Acute (2) Pleural effusion: Malignant. Already has had 2 thoracentesis within the last 3 weeks with most recently 10 days ago. Appreciate pulmonology recs. Post [place] drain placement day 0. Will drain later at night again. Fluid studies sent. Status: Acute (3) COVID-19: Hypoxia secondary to COVID-19 pneumonia: Mild to moderate disease. Symptoms less likely secondary COVID-19. Most likely secondary to large pleural effusion. Will review oxygenation again. [place] drain placement and thoracentesis. If oxygenation improving most likely will finish only 3-day course of remdesivir. Oxygen supplementation keeping saturation over 88%. Dexamethasone 6 mg daily. Remdesivir to finish a 5-day course. Vitamin C, zinc. DuoNeb every 6 hour, budesonide twice daily Pulmonary toilet with incentive spirometry flutter valve. We will monitor inflammatory markers including CRP, D-dimer every 48 hours. If getting elevated will dose Actemra. Patient was made aware of the same and he has given verbal consent. Less likely pulmonary embolism. Rhythm culture not sent. Pro-Charli positive but most likely secondary to malignancy. Urine Legionella Bomback antigen negative. Fluid studies have been sent. Infection unlikely. MRSA in the past negative. For now start on Augmentin and Levaquin as per creatinine clearance. Given hypoxia will try to keep patient as negative as possible. Echocardiogram done but not reported because of poor echo windows. Lasix as per fluid status. Strict input output charting, daily weights. Status: Acute (4) Small cell lung cancer: Follows up with Dr. Ramirez as an outpatient. Not started on chemotherapy yet as undergoing further evaluation. Status: Acute (5) CHF exacerbation: No previous known history. Check echocardiogram. Status: Acute Plan Replete potassium 100 mEq. Repeat BMP in evening. Analgesia: Morphine, Tylenol Glycemic control: HbA1c 7. Start on low-dose insulin sliding scale. Nutrition: Cardiac diet, CODE STATUS: Full code PUD prophylaxis: Protonix DVT prophylaxis: SCDs Discharge planning: Home with home health possibly. Will need home oxygen evaluation prior to discharge. Continue with care at [facility] This documentation was created by [employer] traffic signal repairer software. Every effort was made to ensure accuracy of traffic signal repairer. Any obvious errors or omissions should be clarified with the author of the document. Attestations Medical Necessity Statement*: Requires further hospitalization for management of acute on chronic hypoxic respiratory failure secondary to malignant pleural effusion, small cell cancer, COVID-19 pneumonia Time Spent in Patient Care: Greater than 35 minutes Coding Level of Care Code Acute Promotions Coordinator for [facility] Fwd Diagnoses Acute on chronic respiratory failure with hypoxia J96.21 Pleural effusion J90 COVID-19 U07.1 Small cell lung cancer C34.90 CHF exacerbation I50.9
[2022-06-29 16:57] LABS: Body Fluid WBC 1275 /uL; Monocytes # Body Fluid 1.245
[2022-06-29 17:01] LABS: Apprearance, Body Fluid CLOUDY; Color, Body Fluid RED
[2022-06-29 17:06] LABS: Hematocrit Body Fluid 1.6 %
[2022-06-29 17:42] LABS: Glucose Point of Care 143 mg/dL (70-110)
[2022-06-29 17:59] LABS: Albumin Body Fluid 2.2 g/dL; Creatinine Body Fluid 1.01 (0.5-0.9)
[2022-06-29 18:00] LABS: Triglycerides, Pleural Fluid 58 mg/dL
[2022-06-29 18:02] LABS: Total Protein Pleural Fluid 3.8 g/dL
[2022-06-29] MEDS: insulin lispro 100 unit/1 mL SUBCUT ×2 (18:05→21:31)
[2022-06-29 18:12] LABS: LDH Pleural Fluid 1088 U/L
[2022-06-29 19:42] LABS: Cyto Order Verification No Order
[2022-06-29 21:22] LABS: Glucose Point of Care 178 mg/dL (70-110)
[2022-06-29] MEDS: atorvastatin 40 mg Tablet 80 MG PO (21:30)
[2022-06-29] MEDS: remdesivir 100 MG in sodium chloride 0.9% (100 ml) 80 ML IV (21:30)
[2022-06-29 22:14] LABS: Anion Gap 15.8 (5-19); Blood Urea Nitrogen 22 mg/dL (8-23); Calcium 9.3 mg/dL (8.5-10.5); Carbon Dioxide 39 mmol/L (22-29); Chloride 91 mmol/L (98-107); Glomerular Filtration Rate 45.1 mL/min (90-130); Glucose 171 mg/dL (65-115); Osmolality Calculated 301 mOsm/kg (285-295); Potassium 3.8 mmol/L (3.5-5.1); Sodium 142 mmol/L (136-145)
[2022-06-30] VITALS (13 sets, daily range): BP systolic 94–155; BP diastolic 58–76; PULSE 60–133; RESP 15–20; TEMP 36.7–36.8; O2SAT 89–98
[2022-06-30] MEDS: hyDROXYzine 25 mg Capsule PO (02:43)
[2022-06-30] MEDS: ipratropium-albuterol 3 mL Neb INHALATION ×3 (03:39→11:48)
[2022-06-30 04:19] LABS: Hematocrit 52.2 % (37.0-47.0); Hemoglobin 16.9 g/dL (11.5-15.3); Mean Corpuscular HGB Conc 32.4 g/dL (30.0-36.0); Mean Corpuscular Hemoglobin 30.7 pg (28.0-34.0); Mean Corpuscular Volume 94.7 fl (81-99); Mean Platelet Volume 10.7 fL (7.4-10.4); Platelet Count 187 10^3/cmm (130-400); Positive C 1; Positive M 1; Red Blood Count 5.51 10^6/uL (4.1-5.3); Red Cell Distribution Width 12.6 % (12.1-15.1); White Blood Count 9.9 10^3/uL (4.0-10.0)
[2022-06-30 04:55] LABS: Alanine Aminotransferase 50 U/L (0-33); Albumin Level 3.2 g/dL (3.5-5.2); Alkaline Phosphatase 201 U/L (35-105); Anion Gap 14.9 (5-19); Aspartate Amino Transferase 50 U/L (0-32); Blood Urea Nitrogen 23 mg/dL (8-23); Calcium 9.3 mg/dL (8.5-10.5); Carbon Dioxide 37 mmol/L (22-29); Chloride 91 mmol/L (98-107); Glomerular Filtration Rate 49.8 mL/min (90-130); Glucose 126 mg/dL (65-115); Magnesium 2.1 mg/dL (1.7-2.3); Osmolality Calculated 295 mOsm/kg (285-295); Phosphorus 3.6 mg/dL (2.5-4.5); Sodium 140 mmol/L (136-145); Total Bilirubin 0.6 mg/dL (0.15-1.2); Total Protein 6.2 g/dL (6.6-8.7)
[2022-06-30 05:28] LABS: Total Cells Counted 100 (0-100)
[2022-06-30 05:29] LABS: Absolute Neutrophil 9.1 10^3/cmm (1.4-6.5); Absolute Segmented Neutrophil 9.1 10/cmm (1.6-7.1); Eosinophils 0 %; Lymphocytes 4 %; Monocytes Absolute 0.3 10^3/cmm (0.1-0.6); Platelet Estimate Normal (Normal); Segmented Neutrophils 92 %
[2022-06-30 05:44] LABS: Potassium 2.9 mmol/L (3.5-5.1)
[2022-06-30 05:46] LABS: Lymphocytes Absolute 0.4 10^3/cmm (1.2-3.4)
[2022-06-30] MEDS: lidocaine 1% 5 ML in potassium chloride premix 100 ML 25 ML IV (06:42)
[2022-06-30] MEDS: levoFLOXacin 500 mg Tablet PO (06:44)
[2022-06-30 06:46] LABS: Glucose Point of Care 138 mg/dL (70-110)
[2022-06-30] MEDS: budesonide 0.5 mg/2 mL Neb INHALATION (07:40)
[2022-06-30] MEDS: FUROsemide 10 mg/mL SDV 4mL 40 MG IVP (08:06)
[2022-06-30] MEDS: ascorbic acid 500 mg Tablet PO ×2 (08:06→17:46)
[2022-06-30] MEDS: amoxicillin-clav 875-125 mg Tablet 1 TAB PO ×2 (08:06→17:46)
[2022-06-30] MEDS: zinc gluconate 50 mg Tablet PO (08:06)
[2022-06-30] MEDS: allopurinol 100 mg Tablet PO ×2 (08:06→17:46)
[2022-06-30] MEDS: pantoprazole DR 40 mg Tablet PO (08:06)
[2022-06-30] MEDS: ferrous gluconate 324 mg Tablet PO ×2 (08:06→17:46)
[2022-06-30 11:15] LABS: Glucose Point of Care 166 mg/dL (70-110)
[2022-06-30] MEDS: insulin lispro 100 unit/1 mL SUBCUT ×3 (11:57→22:17)
--- NOTE | 2022-06-30 12:35 | XRR_ITS ---
PROCEDURE INFORMATION: Exam: XR Chest Exam date and time: 06/30/2022 12:44 PM Age: 66 years old Clinical indication: Other: Decreased o2 saturation TECHNIQUE: Imaging protocol: Radiologic exam of the chest. Views: 1 view. COMPARISON: CR XR chest 1V portable [id number] 06/29/2022 4:00 PM FINDINGS: Tubes, catheters and devices: Right subclavian approach MediPort is in satisfactory position, with distal tip in the SVC, approximately 5 cm above the SVC/RA junction. Lungs: Interval decrease in size of large left pleural effusion with [id number] amount of fluid remaining and improve the radiation of the left lung. There is extensive airspace opacities in the left lung, which may represent compressive atelectasis. Pneumonia should be excluded clinically. No pneumothorax. Left-sided chest tube is in satisfactory position. Pleural spaces: See Lungs finding. Heart/Mediastinum: Stable partially obscured mediastinal silhouette. Bones/joints: Unremarkable. XR/XR chest 1V portable [id number] IMPRESSION: Improving left-sided pleural effusion and atelectasis, with chest tube in satisfactory position and no pneumothorax. Pneumonia should be excluded clinically.
--- NOTE | 2022-06-30 12:36 | ECG_ITS ---
[facility] Test Date: 2022-06-30 Pat Name: Edilma Langston Department: Room: 267 Gender: Female Medical Equipment Repairer: : 1955 Requested By: Daniel Bliss Order Number: [id number] Todd MD: Rupesh Constantino M.D. Measurements Intervals [place] Rate: 131 P: 57 TX: 115 QRS: -45 QRSD: 111 T: 56 QT: 413 QTc: 611 Interpretive Statements SINUS TACHYCARDIA WITH SHORT TX INTERVAL PATTERN CONSISTENT WITH PULMONARY DISEASE INCOMPLETE RIGHT BUNDLE BRANCH BLOCK [90+ ms QRS DURATION, TERMINAL R IN V1/V2, 40+ ms S IN I/aVL/V4/V5/V6] LEFT ANTERIOR FASCICULAR BLOCK [QRS AXIS <= -45, QR IN I, RS IN II] INTERPRETATION BASED ON A DEFAULT AGE OF 40 YEARS Compared to ECG 06/28/2022 01:09:03 Short TX interval now present Incomplete right bundle-branch block now present Sinus rhythm no longer present Right bundle-branch block no longer present Electronically Signed On 06-30-2022 16:29:41 CDT by Rupesh Constantino M.D. [id number]
--- NOTE | 2022-06-30 12:58 | CT_ITS ---
WS: [id number] CTA OF THE CHEST WITH PULMONARY EMBOLISM PROTOCOL TECHNIQUE: High-resolution contrast enhanced CTA of the chest with coronal and sagittal reformatted i mages with pulmonary embolism protocol. MIP images are also reviewed. CLINICAL INFORMATION: possible pe COMPARISON: CT chest June 28, 2022 DLP: 451.[address] scans at [facility] use at least one of these dose optimization techniques: automated e xposure control; mA and/or kV adjustment per patient size (includes targeted exams where dose is matc hed to clinical indication); or iterative reconstruction. FINDINGS:Proximal main pulmonary arteries are normal. Segmental and subsegmental pulmonary arteries a re patent. No evidence of pulmonary embolus. LEFT pleural effusion has improved compared to previous with placement of chest tube. Residual diffus e pleural thickening LEFT hemithorax with volume loss. Nodular pleural-based masses compatible with m etastatic disease. Patchy infiltrates in the LEFT lower lobe with partial airspace consolidation. Par tially visualized metastatic disease in the upper abdomen and LEFT hemidiaphragm. Stable mediastinal invasion. Partially visualized metastatic disease involving the posterior elements spinous process ap proximately T12. Hazy groundglass infiltrates in the RIGHT lower lobe similar to June 28, 2022. Spiculated RIGHT upp er lobe mass measuring 1.8 x 1.4 cm is unchanged. Hypertrophic changes thoracic spine. Normal caliber thoracic aorta. Enlarged RIGHT axillary lymphaden opathy measuring 2.1 CM. Metastatic liver disease CT/CT angio chest PE protcl [id number] IMPRESSION: 1. No evidence of pulmonary embolus. 2. Improved LEFT pleural effusion with LEFT chest tube. Persistent circumferen tial pleural thickening LEFT lung with pleural masses and metastatic disease si milar to previous. 3. Similar-appearing groundglass infiltrates in RIGHT lower lobe. 4. Spiculated mass in the RIGHT upper lobe is unchanged. 5. No other significant changes compared to the recent examinations.
--- NOTE | 2022-06-30 13:00 | PC.NURSE ---
1045- drained 450 fluid from left pleural drain. Pt continues to be short of breath , this nurse practiced breathing techniques with pt. o2 remained in 94% on 4L NC. 1100- Pt on 4LNC reporting shortness of breath. Respiratory at bedside. O2 91% on 6LNC.
[2022-06-30] MEDS: levalbuterol 0.63 mg/3 mL Neb INHALATION (13:24)
[2022-06-30] MEDS: ipratropium 0.5 mg/2.5 mL Neb INHALATION (13:25)
[2022-06-30] MEDS: dexamethasone 10 mg/mL INJ 6 MG IVP (15:52)
[2022-06-30] MEDS: HYDROmorphone 1 mg/mL INJ 1 mL 0.2 MG IVP (16:18)
[2022-06-30] MEDS: sodium chloride 0.9% 500 ML 999 ML IV (16:18)
--- NOTE | 2022-06-30 16:54 | P.PN_ITS ---
Subjective Subjective: In last 24 hours patient underwent placement of [place] drain. Post placement 1 L fluid was drained, further 800 cc were drained yesterday evening. Patient has been doing fine since then with drain placement until today morning when 450 cc of further fluid was drained after which she had pain at the site of insertion and since then patient has been having difficulty in maintaining her saturation over 88%. She has been placed on 6 to 7 L of oxygen mask to maintain saturation at 90. Patient is tachycardic with heart rate running in 120s with increased work of breathing. No urine output has been charted. Pereira catheter was placed and since then patient seems to be around 1- 1/2 L negative since yesterday. Vitals/I&O/Wt Last Vital Signs Temp 98.3 F 06/30/22 12:00 Pulse 133 H 06/30/22 14:00 Resp 19 H 06/30/22 13:28 BP 94/58 06/30/22 12:00 Pulse Ox 89 L 06/30/22 13:28 O2 Del Method 06/30/22 13:28 O2 Flow Rate 6 06/30/22 13:28 06/30/22 06/30/22 06/30/22 06:59 14:59 22:59 Intake Total 0 / 640 445 / 445 Output Total 0 / 1000 1250 / 1250 Balance 0 / -360 -805 / -805 Physical Exam Const: COMMON NORMALS: no acute distress and patient oriented x3 HENMT: COMMON NORMALS: normocephalic HEAD & SCALP: normocephalic Neck/C-Spine: COMMON NORMALS: no JVD Resp: COMMON NORMALS: normal respiratory effort, No retractions and No use of accessory muscles OTHER: Decreased aeration on the left side of the lung, good air movement right lung Cardio: COMMON NORMALS: no JVD, regular rate, regular rhythm, S1 normal heart sound present and S2 normal heart sound present RATE: regular rate RHYTHM: regular rhythm HEART SOUNDS: S1 normal heart sound present and S2 normal heart sound present GI: COMMON NORMALS: Normal to inspection, nondistended, normoactive bowel sounds present, Soft to palpation, non-tender, No hepatosplenomegaly present, no masses and no bruits PALPATION: Yes Soft to palpation and Yes No hepatosplenomegaly present Extremity: NARRATIVE EXTREMITY EXAM: 2+ pitting edema bilateral lower extremity Neuro: COMMON NORMALS: patient oriented x3 Psych: COMMON NORMALS: mental status grossly normal Urinary Catheter Management: Pereira: Cath Placed During This Visit: yes Urinary Catheter Date of Insertion: 06/30/22 Urinary Catheter Time of Insertion: 15:48 Data : 07/01/22 05:35 07/01/22 05:35 Micro: Microbiology 06/27/22 16:30 Gram Stain - Final Pleural Fluid Body Fluid Culture - Preliminary 06/29/22 03:30 MRSA Culture - Final Nose A&P Assessment and plan (1) Acute on chronic respiratory failure with hypoxia: Most likely secondary to a combination of large malignant left-sided pleural effusion in setting of recent diagnosis of small lung cell cancer, less likely secondary pneumonia, COVID-19 and CHF. Cannot rule out underlying pneumonia. Repeat CTA for further evaluation of lung after removal of pleural fluid, rule out pulmonary embolism because of acute decompensation. Status: Acute (2) Pleural effusion: Malignant. Post [place] drain placement. Care as per pulmonology team. Continue to follow fluid studies. Culture pending. Status: Acute (3) COVID-19: Hypoxia secondary to COVID-19 pneumonia: Mild to moderate disease. Symptoms less likely secondary COVID-19. Most likely secondary to large pleural effusion. Will review oxygenation again. [place] drain placement and thoracentesis. If oxygenation improving most likely will finish only 3-day course of remdesivir. Oxygen supplementation keeping saturation over 88%. Dexamethasone 6 mg daily. Remdesivir to finish a 5-day course. Vitamin C, zinc. DuoNeb every 6 hour, budesonide twice daily Pulmonary toilet with incentive spirometry flutter valve. We will monitor inflammatory markers including CRP, D-dimer every 48 hours. If getting elevated will dose Actemra. Patient was made aware of the same and he has given verbal consent. Less likely pulmonary embolism. Sputum culture not sent. Pro-Charli positive but most likely secondary to malignancy. Urine Legionella Bomback antigen negative. Fluid studies have been sent. Infection unlikely. MRSA in the past negative. For now start on Augmentin and Levaquin as per creatinine clearance. If patient continues to worsen we will have to escalate antibiotics. Given hypoxia will try to keep patient as negative as possible. Echocardiogram done but not reported because of poor echo windows. Lasix as per fluid status. Plan for repeat limited echocardiogram after removal of fluid and hope of better cardiac windows Strict input output charting, daily weights. Status: Acute (4) Small cell lung cancer: Follows up with Dr. Ramirez as an outpatient. Not started on chemotherapy yet as undergoing further evaluation. Status: Acute (5) CHF exacerbation: No previous known history. Hold off on Lasix for now. Start on gentle IV hydration. Status: Acute Plan Replete potassium 100 mEq. Repeat BMP in evening. Analgesia: Morphine, Tylenol Glycemic control: HbA1c 7. Start on low-dose insulin sliding scale. Nutrition: Cardiac diet, CODE STATUS: Full code PUD prophylaxis: Protonix DVT prophylaxis: SCDs Discharge planning: Home with home health possibly. Will need home oxygen evaluation prior to discharge. Continue with care at [facility] at intermediate level This documentation was created by [employer] dishtank operator software. Every effort was made to ensure accuracy of dishtank operator. Any obvious errors or omissions should be clarified with the author of the document. Attestations Medical Necessity Statement*: Requires further hospitalization for management of hypoxic respiratory failure in setting of small cell lung carcinoma, malign ant pleural effusion post Roman drain placement, COVID-19 Time Spent in Patient Care: Greater than 35 minutes Coding Level of Care Code Acute Hard Candy Spinner for [facility] Fwd Exam Detailed Diagnoses Acute on chronic respiratory failure with hypoxia J96.21 Pleural effusion J90 COVID-19 U07.1 Small cell lung cancer C34.90 CHF exacerbation I50.9
[2022-06-30 17:15] LABS: Glucose Point of Care 155 mg/dL (70-110)
[2022-06-30] MEDS: remdesivir 100 MG in sodium chloride 0.9% (100 ml) 80 ML IV (18:16)
[2022-06-30 21:36] LABS: Glucose Point of Care 155 mg/dL (70-110)
[2022-06-30] MEDS: atorvastatin 40 mg Tablet 80 MG PO (22:17)
[2022-07-01] VITALS (26 sets, daily range): BP systolic 92–115; BP diastolic 57–78; PULSE 95–121; RESP 12–32; TEMP 36.6–36.8; O2SAT 87–97
[2022-07-01] MEDS: levoFLOXacin 500 mg Tablet PO (04:56)
[2022-07-01 06:00] LABS: Basophils # 0.1 10^3/uL (0.0-0.1); Basophils % 0.5 %; Eosinophils # 0.3 10^3/uL (0.0-0.8); Eosinophils % 2.1 %; Hematocrit 54.1 % (37.0-47.0); Hemoglobin 18.2 g/dL (11.5-15.3); Lymphocytes % 6.7 %; Mean Corpuscular HGB Conc 33.6 g/dL (30.0-36.0); Mean Corpuscular Hemoglobin 31.2 pg (28.0-34.0); Mean Corpuscular Volume 92.6 fl (81-99); Mean Platelet Volume 10.3 fL (7.4-10.4); Monocytes # 0.4 10^3/uL (0.2-0.9); Monocytes % 2.6 %; Neutrophils # 11.64 10^3/uL (1.8-7.7); Neutrophils % 82.4 %; Nucleated Red Blood Cells % 0 %; Platelet Count 216 10^3/cmm (130-400); Red Blood Count 5.84 10^6/uL (4.1-5.3); White Blood Count 14.1 10^3/uL (4.0-10.0)
--- NOTE | 2022-07-01 06:00 | XRR_ITS ---
PROCEDURE INFORMATION: Exam: XR Chest Exam date and time: 07/01/2022 5:56 AM Age: 66 years old Clinical indication: Shortness of breath; Prior surgery; Surgery date: 1-6 months; Surgery type: Port; Patient HX: SOB covid follow up TECHNIQUE: Imaging protocol: Radiologic exam of the chest. Views: 1 view. COMPARISON: CR XR chest 1V portable [id number] 06/30/2022 12:44 PM FINDINGS: Tubes, catheters and devices: Left pleural drainage catheter is seen without change. Lungs: Interval increased opacification of the left hemithorax with increased coalescent left lung airspace opacities and slightly increased medium-sized left pleural effusion. Decreased right lung volumes. Increased mild right perihilar interstitial prominence, which may represent pulmonary vascular congestion. No right lung airspace opacities. Pleural spaces: No right pleural effusion. No pneumothorax. Heart/Mediastinum: There is mild shift of the mediastinum towards the left. Bones/joints: No acute osseous abnormalities seen. Unchanged postsurgical changes of bilateral shoulders are seen with humeral head suture anchors. Soft tissues: Multiple external densities are seen overlying the chest, limiting assessment. XR/XR chest 1V portable [id number] IMPRESSION: 1. Interval increased opacification of the left hemithorax with increased coalescent left lung airspace opacities and slightly increased medium-sized left pleural effusion. Left pleural drainage catheter seen without change. 2. Decreased right lung volumes. Increased mild right perihilar interstitial prominence.
[2022-07-01 06:16] LABS: Alanine Aminotransferase 44 U/L (0-33); Albumin Level 2.9 g/dL (3.5-5.2); Alkaline Phosphatase 183 U/L (35-105); Anion Gap 20.7 (5-19); Aspartate Amino Transferase 51 U/L (0-32); Blood Urea Nitrogen 37 mg/dL (8-23); Calcium 9.2 mg/dL (8.5-10.5); Carbon Dioxide 29 mmol/L (22-29); Chloride 89 mmol/L (98-107); Globulin 2.5 g/dL (1.3-4.6); Glomerular Filtration Rate 34.9 mL/min (90-130); Glucose 116 mg/dL (65-115); Osmolality Calculated 290 mOsm/kg (285-295); Potassium 3.7 mmol/L (3.5-5.1); Sodium 135 mmol/L (136-145); Total Bilirubin 0.6 mg/dL (0.15-1.2); Total Protein 5.4 g/dL (6.6-8.7)
[2022-07-01 06:23] LABS: Positive C 1; Positive M 1
[2022-07-01 06:51] LABS: Glucose Point of Care 127 mg/dL (70-110)
[2022-07-01] MEDS: budesonide 0.5 mg/2 mL Neb INHALATION ×2 (08:08→20:16)
[2022-07-01] MEDS: ipratropium 0.5 mg/2.5 mL Neb INHALATION ×3 (08:08→20:16)
[2022-07-01] MEDS: levalbuterol 0.63 mg/3 mL Neb INHALATION ×3 (08:09→20:16)
--- NOTE | 2022-07-01 08:27 | USCV_ITS ---
King Edilma Age: 66 Gender: F : 1955 Exam Date: 07/01/2022 09:19 Ordering Phys: Daniel Bliss MD Technologist: Alvaro Newsome Exam Location: [facility] [place] Indication: sob BP: / HR: Rhythm: Sinus Technical Quality: Very technically difficult study MEASUREMENTS (Male / Female) Normal Values FINDINGS Left Ventricle Extremely difficult study because of the poor ultrasonic window. No significant pericardial effusion. Right Ventricle Right Atrium Left Atrium Mitral Valve Aortic Valve Tricuspid Valve Pulmonic Valve Pericardium Aorta IVC CONCLUSIONS 1. Extremely difficult study because of poor ultrasonic window. 2. No significant pericardial effusion Dr Jemma Woods MD FACC (Electronically Signed) Final Date: 01 July 2022 21:35 S
[2022-07-01] MEDS: zinc gluconate 50 mg Tablet PO (08:44)
[2022-07-01] MEDS: ferrous gluconate 324 mg Tablet PO ×2 (08:44→18:26)
[2022-07-01] MEDS: pantoprazole DR 40 mg Tablet PO (08:45)
[2022-07-01] MEDS: ascorbic acid 500 mg Tablet PO ×2 (08:45→18:26)
[2022-07-01] MEDS: allopurinol 100 mg Tablet PO ×2 (08:45→18:26)
--- NOTE | 2022-07-01 09:17 | PC.NURSE ---
notified Dr of the unsuccessful attempts to get a peripheral IV we will try to do an JEN guide.
--- NOTE | 2022-07-01 09:30 | PC.NURSE ---
called ER and ICU to assist w/ an JEN guide IV notified charge nurse beginning of the shift about her needing an IV w/ JEN guide due to multiple attempts of being unsuccessful to get IV.
[2022-07-01 10:36] LABS: Procalcitonin 19.42 ng/mL (0-0.5)
[2022-07-01] MEDS: piperacillin-tazobactam 3.375 GM in sodium chloride 0.9% (plus) 50 ML IV ×2 (11:13→18:25)
[2022-07-01] MEDS: sodium chloride 0.9% 1,000 ML 50 ML IV (11:14)
[2022-07-01 11:41] LABS: Glucose Point of Care 145 mg/dL (70-110)
[2022-07-01] MEDS: insulin lispro 100 unit/1 mL SUBCUT ×3 (13:29→20:28)
--- NOTE | 2022-07-01 15:21 | PC.RESP ---
Therpist gave patient a breathing treatment and got patient to the chair. pt oxygen dropped to 83% on 7LPM oxymask. Pt is now on 14LPM oxymask with 88% oxygen.
--- NOTE | 2022-07-01 16:03 | PM.PN ---
Subjective Subjective: Overnight patient has remained on 7 L oxime mask saturating in high 80s. Patient states she is feeling little better. Decreased work of breathing. During the day when being transferred from bed to chair patient had difficulty breathing again at which time she developed respiratory distress and required heated high flow placement. Denies any nausea vomiting, headache. Not working with incentive spirometry currently. Appetite poor. Complaining of pain. Vitals/I&O/Wt Last Vital Signs Temp 97.9 F 07/01/22 07:54 Pulse 115 H 07/01/22 15:20 Resp 24 H 07/01/22 15:20 BP 97/67 07/01/22 11:26 Pulse Ox 87 L 07/01/22 15:20 O2 Del Method 07/01/22 15:20 O2 Flow Rate 14 07/01/22 15:20 07/01/22 07/01/22 07/01/22 06:59 14:59 22:59 Intake Total 400 / 1805 480 / 480 Output Total 1400 / 2650 Balance -1000 / -845 480 / 480 Physical Exam Const: COMMON NORMALS: no acute distress and patient oriented x3 HENMT: COMMON NORMALS: normocephalic HEAD & SCALP: normocephalic Neck/C-Spine: COMMON NORMALS: no JVD Resp: COMMON NORMALS: normal respiratory effort, No retractions and No use of accessory muscles OTHER: Decreased aeration on the left side of the lung, good air movement right lung Cardio: COMMON NORMALS: no JVD, regular rate, regular rhythm, S1 normal heart sound present and S2 normal heart sound present RATE: regular rate RHYTHM: regular rhythm HEART SOUNDS: S1 normal heart sound present and S2 normal heart sound present GI: COMMON NORMALS: Normal to inspection, nondistended, normoactive bowel sounds present, Soft to palpation, non-tender, No hepatosplenomegaly present, no masses and no bruits PALPATION: Yes Soft to palpation and Yes No hepatosplenomegaly present Extremity: NARRATIVE EXTREMITY EXAM: 2+ pitting edema bilateral lower extremity Neuro: COMMON NORMALS: patient oriented x3 Psych: COMMON NORMALS: mental status grossly normal Urinary Catheter Management: Pereira: Cath Placed During This Visit: yes Reason for Continuing Indwelling Catheter: Acute Urinary Retention or Obstruction Urinary Catheter Date of Insertion: 06/30/22 Urinary Catheter Time of Insertion: 15:48 Data : 07/01/22 05:35 07/01/22 05:35 Micro: Microbiology 06/27/22 16:30 Gram Stain - Final Pleural Fluid Body Fluid Culture - Preliminary A&P Assessment and plan (1) Acute on chronic respiratory failure with hypoxia: Most likely secondary to a combination of large malignant left-sided pleural effusion in setting of recent diagnosis of small lung cell cancer, less likely secondary pneumonia, COVID-19 and CHF. Cannot rule out underlying pneumonia. CTA negative for pulmonary embolism, consistent with worsening of lung cancer. Status: Acute (2) Pleural effusion: Malignant. Post [place] drain placement. Care as per pulmonology team. Continue to follow fluid studies. Culture pending. Status: Acute (3) COVID-19: Hypoxia secondary to COVID-19 pneumonia: Mild to moderate disease. Symptoms less likely secondary COVID-19. Most likely secondary to large pleural effusion. Will review oxygenation again. [place] drain placement and thoracentesis. If oxygenation improving most likely will finish only 3-day course of remdesivir. Oxygen supplementation keeping saturation over 88%. Dexamethasone 6 mg daily. Remdesivir to finish a 5-day course. Vitamin C, zinc. DuoNeb every 6 hour, budesonide twice daily Pulmonary toilet with incentive spirometry flutter valve. We will monitor inflammatory markers including CRP, D-dimer every 48 hours. If getting elevated will dose Actemra. Patient was made aware of the same and he has given verbal consent. Less likely pulmonary embolism. Sputum culture not sent. Pro-Charli positive but most likely secondary to malignancy. Urine Legionella Bomback antigen negative. Fluid studies have been sent. Infection unlikely. MRSA in the past negative. For now start on Augmentin and Levaquin as per creatinine clearance. If patient continues to worsen we will have to escalate antibiotics. Given hypoxia will try to keep patient as negative as possible. Echocardiogram done but not reported because of poor echo windows. Lasix as per fluid status. Plan for repeat limited echocardiogram after removal of fluid and hope of better cardiac windows Strict input output charting, daily weights. Status: Acute (4) Small cell lung cancer: Follows up with Dr. Ramirez as an outpatient. Not started on chemotherapy yet as undergoing further evaluation. Status: Acute (5) CHF exacerbation: No previous known history. Hold off on Lasix for now. Start on gentle IV hydration. Status: Acute Plan Hypoxic respiratory failure: Most likely secondary to worsening pulmonary functions in setting of small cell lung carcinoma, malignant pleural effusion, COPD and COVID-19. Less likely CHF. Treatment of COVID-19 as above. Switch from dexamethasone to Solu-Medrol 40 mg IV every 8 hourly. Will de-escalate as per clinical picture. Continue to finish 5-day course of remdesivir. Heparin 5000 Q8 hourly. No PE. Monitor D-dimer and CRP every 48 hourly. Follow-up fluid cultures. Continue draining from Roman drain if and when possible. Plan for draining further today. Switch from Augmentin and Levaquin to IV Zosyn. MRSA negative. Start on normal saline at 50 cc/h. Patient counseled in detail regarding aggressive pulmonary toilet with I-S and Acapella. Patient and patient's family verbalized understanding. Plan to sit in the chair for as long as possible. Analgesia: Morphine, Tylenol Glycemic control: HbA1c 7. Start on low-dose insulin sliding scale. Nutrition: Cardiac diet, CODE STATUS: Full code. Discussed CODE STATUS in detail with patient and patient's daughter who is also the DPOA is at bedside. We discussed possibility of DNR/DNI versus DNR or just DNI. We discussed unfortunately patient has poor baseline health now given aggressive lung cancer and if she undergoes chest compressions possible that she will not come back to her baseline health anymore. Patient and family verbalized understanding and would like to think further regarding CODE STATUS. PUD prophylaxis: Protonix DVT prophylaxis: SCDs Discharge planning: Home with home health possibly. Will need home oxygen evaluation prior to discharge. Transfer to ICU for hypoxic respiratory failure This documentation was created by [employer] inspecting supervisor software. Every effort was made to ensure accuracy of inspecting supervisor. Any obvious errors or omissions should be clarified with the author of the document. Attestations Medical Necessity Statement*: Requires further hospitalization for management of hypoxic respiratory failure in setting of lung cancer, malignant pleural effusion post [place] drain placement, COVID-19 Time Spent in Patient Care: Greater than 35 minutes Coding Level of Care Code Acute Process Control Specialist for Echo Fwkeisha Diagnoses Acute on chronic respiratory failure with hypoxia J96.21 Pleural effusion J90 COVID-19 U07.1 Small cell lung cancer C34.90 CHF exacerbation I50.9
--- NOTE | 2022-07-01 16:43 | PC.RESP ---
was called after patients james drain was drained. Pt started breathing better and sats came up. Therapist kept patient off of heated high flow and was notified about it.
--- NOTE | 2022-07-01 16:59 | PC.NURSE ---
1600 james drained, [place] cath access using aseptic technique. 150 out of serosanguinous fluid. good blood return on pt's right upper chest [place] cath after access. pt tolerated the procedure well. moved to icu 2 with RT and dgtr at side.
[2022-07-01] MEDS: remdesivir 100 MG in sodium chloride 0.9% (100 ml) 80 ML IV (18:25)
[2022-07-01] MEDS: heparin 5,000 unit/mL INJ 1 mL 5000 UNIT SUBCUT (18:25)
[2022-07-01 18:38] LABS: Glucose Point of Care 142 mg/dL (70-110)
[2022-07-01] MEDS: atorvastatin 40 mg Tablet 80 MG PO (20:00)
[2022-07-01 20:38] LABS: Glucose Point of Care 143 mg/dL (70-110)
[2022-07-02] VITALS (32 sets, daily range): BP systolic 87–113; BP diastolic 56–67; PULSE 86–128; RESP 16–39; TEMP 36–37; O2SAT 89–98
[2022-07-02] MEDS: piperacillin-tazobactam 3.375 GM in sodium chloride 0.9% (plus) 50 ML IV ×3 (00:12→18:19)
[2022-07-02] MEDS: heparin 5,000 unit/mL INJ 1 mL 5000 UNIT SUBCUT ×3 (00:12→18:15)
[2022-07-02] MEDS: levalbuterol 0.63 mg/3 mL Neb INHALATION ×4 (02:27→21:47)
[2022-07-02] MEDS: sodium chloride 0.9% 1,000 ML 50 ML IV (04:51)
[2022-07-02] MEDS: acetaminophen 325 mg Tablet 650 MG PO (07:40)
[2022-07-02] MEDS: budesonide 0.5 mg/2 mL Neb INHALATION ×2 (08:33→21:48)
[2022-07-02] MEDS: ipratropium 0.5 mg/2.5 mL Neb INHALATION ×3 (08:33→21:47)
[2022-07-02] MEDS: zinc gluconate 50 mg Tablet PO (09:32)
[2022-07-02] MEDS: allopurinol 100 mg Tablet PO ×2 (09:32→18:19)
[2022-07-02] MEDS: ferrous gluconate 324 mg Tablet PO ×2 (09:32→18:19)
[2022-07-02] MEDS: pantoprazole DR 40 mg Tablet PO (09:32)
[2022-07-02] MEDS: ascorbic acid 500 mg Tablet PO ×2 (09:32→18:19)
[2022-07-02 09:46] LABS: Basophils # 0.1 10^3/uL (0.0-0.1); Basophils % 0.4 %; Eosinophils # 0.2 10^3/uL (0.0-0.8); Eosinophils % 1.4 %; Hematocrit 49.5 % (37.0-47.0); Hemoglobin 16.7 g/dL (11.5-15.3); Lymphocytes # 0.8 10^3/uL (0.8-4.8); Lymphocytes % 5.2 %; Mean Corpuscular HGB Conc 33.7 g/dL (30.0-36.0); Mean Corpuscular Volume 91.8 fl (81-99); Mean Platelet Volume 10.7 fL (7.4-10.4); Monocytes # 0.4 10^3/uL (0.2-0.9); Monocytes % 2.4 %; Neutrophils # 13.84 10^3/uL (1.8-7.7); Nucleated Red Blood Cells % 0.1 %; Platelet Count 222 10^3/cmm (130-400); Red Blood Count 5.39 10^6/uL (4.1-5.3); Red Cell Distribution Width 12.7 % (12.1-15.1); White Blood Count 16.1 10^3/uL (4.0-10.0)
[2022-07-02] MEDS: HYDROcodone-acetaminophen 5-325 mg Tablet 1 TAB PO (09:49)
[2022-07-02 10:04] LABS: Alanine Aminotransferase 42 U/L (0-33); Albumin Level 2.3 g/dL (3.5-5.2); Alkaline Phosphatase 173 U/L (35-105); Anion Gap 18.1 (5-19); Aspartate Amino Transferase 58 U/L (0-32); Blood Urea Nitrogen 35 mg/dL (8-23); Calcium 8.5 mg/dL (8.5-10.5); Carbon Dioxide 27 mmol/L (22-29); Chloride 91 mmol/L (98-107); Globulin 3.1 g/dL (1.3-4.6); Glomerular Filtration Rate 37.7 mL/min (90-130); Glucose 109 mg/dL (65-115); Osmolality Calculated 285 mOsm/kg (285-295); Potassium 3.1 mmol/L (3.5-5.1); Sodium 133 mmol/L (136-145); Total Bilirubin 0.6 mg/dL (0.15-1.2); Total Protein 5.4 g/dL (6.6-8.7)
[2022-07-02 10:11] LABS: Procalcitonin 16.32 ng/mL (0-0.5)
[2022-07-02] MEDS: lidocaine 5% Patch 1 PATCH TOPICAL ×2 (10:18→20:35)
[2022-07-02 10:52] LABS: Glucose Point of Care 116 mg/dL (70-110)
--- NOTE | 2022-07-02 12:51 | PC.SOCIAL ---
IMM Update pg 2 of IMM updated and reviewed w/ patient. Copy provided and Copy placed in chart dated and initialed.
[2022-07-02 13:07] LABS: Glucose Point of Care 141 mg/dL (70-110)
--- NOTE | 2022-07-02 13:23 | PC.CHAP ---
Pastoral Care Encounter/Spiritual Assessment Type of Contact [] Declined staffing operations manager visit [] Patient/Family/Request visit [] Outpatient visit [] Follow-up visit [] Physician referral [] Code/Alert [x] Routine visit [] Staff referral [] Actively dying [x] Patient sleeping [] Family support [] [] Out of room [] Palliative care [] [] Receiving care in room [] Pre-surgical visit [] Trauma [] Long length of stay [x] ICU visit [] Other: Relational/Emotional Strength [] Patient feels connected with others/family/visitors/staff [] Distress [] Loneliness/isolation [] Abandonment Spirituality of Patient [] Person of Prabha [] Attends Pentecostal of their Prabha [] Believes in Prayer [] Reads Bible or Restorationism materials [] There are Spiritual issues to be addressed New Account Interviewer Interventions [x] Prayer [] Active listening [] Non-anxious presence [] Spiritual/emotional support [] Crisis/trauma care [] Spiritual counseling [] Bereavement support [] Provided bereavement packet [] Provided Bible/devotional materials [] Provided toy/stuffed animal, coloring book to patient or family member [] Provided Communion [] Anointing/[place] [] Salvation [] Completed spiritual assessment [] Other: Impact on Illness or Injury [] Angry [] Fearful [] Anxious [] Often cries [] Exhaustion [] Unable to work [] Unable to attend pentecostalism [] Unable to walk/stand [] Unable to read [] Unable to drive [] Unable to eat/drink [] Unable to sleep [] Unable to be with family [] Patient intubated [] Other: Summary Time spent with patient
--- NOTE | 2022-07-02 14:37 | P.PN_ITS ---
Subjective Subjective: Seen in the ICU today. On examination patient was on oxygen mask which was later transitioned to high flow nasal cannula to help with work of breathing. Started with 14 L being weaned down to 12 L. Saturations maintained over 92%. Patient has been advised to get out of bed to chair. As per the daughter patient has been doing I-S and Acapella more frequently. No further fluid was drained from the [place] drain. Continues to be on normal saline at 50 cc/h. Documented urine output of 1 L. Vitals/I&O/Wt Last Vital Signs Temp 96.8 F L 07/02/22 08:00 Pulse 128 H 07/02/22 09:00 Resp 39 H 07/02/22 09:00 BP 91/60 07/02/22 10:00 Pulse Ox 90 07/02/22 10:00 O2 Del Method 07/02/22 08:30 O2 Flow Rate 12 07/02/22 08:30 07/01/22 07/02/22 07/02/22 22:59 06:59 14:59 Intake Total 340 / 820 930.833 / 1750.833 450 / 450 Output Total 600 / 600 400 / 1000 Balance -260 / 220 530.833 / 750.833 450 / 450 Physical Exam Const: COMMON NORMALS: no acute distress and patient oriented x3 HENMT: COMMON NORMALS: normocephalic HEAD & SCALP: normocephalic Neck/C-Spine: COMMON NORMALS: no JVD Resp: COMMON NORMALS: normal respiratory effort, No retractions and No use of accessory muscles OTHER: Decreased aeration on the left side of the lung, good air movement right lung Cardio: COMMON NORMALS: no JVD, regular rate, regular rhythm, S1 normal heart sound present and S2 normal heart sound present RATE: regular rate RHYTHM: regular rhythm HEART SOUNDS: S1 normal heart sound present and S2 normal heart sound present GI: COMMON NORMALS: Normal to inspection, nondistended, normoactive bowel sounds present, Soft to palpation, non-tender, No hepatosplenomegaly present, no masses and no bruits PALPATION: Yes Soft to palpation and Yes No hepatosplenomegaly present Extremity: NARRATIVE EXTREMITY EXAM: 2+ pitting edema bilateral lower extremity Neuro: COMMON NORMALS: patient oriented x3 Psych: COMMON NORMALS: mental status grossly normal Urinary Catheter Management: Pereira: Cath Placed During This Visit: yes Reason for Continuing Indwelling Catheter: Accurate Measurement of Urinary Output in Critically Ill Patients Urinary Catheter Date of Insertion: 06/30/22 Urinary Catheter Time of Insertion: 15:48 Data : 07/03/22 04:25 07/03/22 04:25 Micro: Microbiology 06/27/22 16:30 Gram Stain - Final Pleural Fluid Body Fluid Culture - Final A&P Assessment and plan (1) Acute on chronic respiratory failure with hypoxia: Most likely secondary to a combination of large malignant left-sided pleural effusion in setting of recent diagnosis of small lung cell cancer, less likely secondary pneumonia, COVID-19 and CHF. Cannot rule out underlying pneumonia. CTA negative for pulmonary embolism, consistent with worsening of lung cancer. Status: Acute (2) Pleural effusion: Malignant. Post Roman drain placement. Care as per pulmonology team. Continue to follow fluid studies. Culture pending. Status: Acute (3) COVID-19: Hypoxia secondary to COVID-19 pneumonia: Mild to moderate disease. Symptoms less likely secondary COVID-19. Most likely secondary to large pleural effusion. Will review oxygenation again. [place] drain placement and thoracentesis. If oxygenation improving most likely will finish only 3-day course of remdesivir. Oxygen supplementation keeping saturation over 88%. Dexamethasone 6 mg daily. Remdesivir to finish a 5-day course. Vitamin C, zinc. DuoNeb every 6 hour, budesonide twice daily Pulmonary toilet with incentive spirometry flutter valve. We will monitor inflammatory markers including CRP, D-dimer every 48 hours. If getting elevated will dose Actemra. Patient was made aware of the same and he has given verbal consent. Less likely pulmonary embolism. Sputum culture not sent. Pro-Charli positive but most likely secondary to malignancy. Urine Legionella Bomback antigen negative. Fluid studies have been sent. Infection unlikely. MRSA in the past negative. Given hypoxia will try to keep patient as negative as possible. Echocardiogram done but not reported because of poor echo windows. Lasix as per fluid status. Plan for repeat limited echocardiogram after removal of fluid and hope of better cardiac windows Strict input output charting, daily weights. Status: Acute (4) Small cell lung cancer: Follows up with Dr. Ramirez as an outpatient. Not started on chemotherapy yet as undergoing further evaluation. Status: Acute (5) CHF exacerbation: No previous known history. Hold off on Lasix for now. Start on gentle IV hydration. Status: Acute Plan Hypoxic respiratory failure: Most likely secondary to worsening pulmonary functions in setting of small cell lung carcinoma, malignant pleural effusion, COPD and COVID-19. Less likely CHF. Treatment of COVID-19 as above. Switch from dexamethasone to Solu-Medrol 40 mg IV every 8 hourly. Will de- escalate as per clinical picture. Continue to finish 5-day course of remdesivir. Heparin 5000 Q8 hourly. No PE. Monitor D-dimer and CRP every 48 hourly. Follow-up fluid cultures. Continue draining from Roman drain if and when possible. Plan for draining further today. Switch from Augmentin and Levaquin to IV Zosyn. MRSA negative. Start on normal saline at 50 cc/h. Patient counseled in detail regarding aggressive pulmonary toilet with I-S and Acapella. Patient and patient's family verbalized understanding. Plan to sit in the chair for as long as possible. Analgesia: Morphine, Tylenol Glycemic control: HbA1c 7. Start on low-dose insulin sliding scale. Nutrition: Cardiac diet, CODE STATUS: Full code. Discussed CODE STATUS in detail with patient and andrea ent's daughter who is also the DPOA is at bedside. We discussed possibility of DNR/DNI versus DNR or just DNI. We discussed unfortunately patient has poor baseline health now given aggressive lung cancer and if she undergoes chest compressions possible that she will not come back to her baseline health anymore. Patient and family verbalized understanding and would like to think further regarding CODE STATUS. PUD prophylaxis: Protonix DVT prophylaxis: SCDs Discharge planning: Home with home health possibly. Will need home oxygen evaluation prior to discharge. Continue with ICU care. This documentation was created by [employer] medical imaging director software. Every effort was made to ensure accuracy of medical imaging director. Any obvious errors or omissions should be clarified with the author of the document. Plan for the day: Out of bed to chair for as long as possible. I-S, Acapella frequently. Hold off on draining Roman drain today. Continue with normal saline 50 cc/h. Continue with Solu-Medrol 40 mg IV every 8 hourly. Will wean within next 24 hours. Continue to hold off on Lasix. Last dose of remdesivir today. Follow-up culture results. As patient got worse has stopped Augmentin and Levaquin and switch to Zosyn. MRSA is negative. Continue with ipratropium, Xopenex, Pulmicort. Wean oxygen supplementation keeping saturation over 88%. Replete potassium. Poor prognosis. Attestations Medical Necessity Statement*: Requires further hospitalization for management of hypoxic respiratory failure secondary to malignant pleural effusion, small lung cell carcinoma, COVID-19, COPD exacerbation while oxygen supplementation is weaned down Time Spent in Patient Care: Greater than 35 minutes Coding Level of Care Code Acute Html Developer for g Fwd Exam Detailed Diagnoses Acute on chronic respiratory failure with hypoxia J96.21 Pleural effusion J90 COVID-19 U07.1 Small cell lung cancer C34.90 CHF exacerbation I50.9
[2022-07-02 17:50] LABS: Glucose Point of Care 165 mg/dL (70-110)
[2022-07-02] MEDS: insulin lispro 100 unit/1 mL SUBCUT (18:16)
[2022-07-02] MEDS: remdesivir 100 MG in sodium chloride 0.9% (100 ml) 80 ML IV (18:20)
--- NOTE | 2022-07-02 19:03 | PC.NURSE ---
SHift Summary: Uneventful shift. Patient was up to a chair for about 7 hours of the 12 hours shift. Stayed on 10 L nasal cannula throughout the day with saturations varying between 89-95%, better when laying down. 400mL of urine output. Patient ate and drank very little reporting no appetite. Patient moved form ICU 2 to ICU 4 due to faulty air conditioner in icu 2.
[2022-07-02] MEDS: atorvastatin 40 mg Tablet 80 MG PO (20:25)
[2022-07-02 20:36] LABS: Glucose Point of Care 151 mg/dL (70-110)
[2022-07-03] VITALS (26 sets, daily range): BP systolic 92–116; BP diastolic 51–78; PULSE 88–104; RESP 14–33; TEMP 36.6–37.1; O2SAT 90–97
[2022-07-03] MEDS: sodium chloride 0.9% 1,000 ML 50 ML IV ×2 (00:26→20:21)
[2022-07-03] MEDS: piperacillin-tazobactam 3.375 GM in sodium chloride 0.9% (plus) 50 ML IV ×3 (00:26→17:10)
[2022-07-03] MEDS: heparin 5,000 unit/mL INJ 1 mL 5000 UNIT SUBCUT ×3 (00:26→17:10)
[2022-07-03] MEDS: HYDROcodone-acetaminophen 5-325 mg Tablet 1 TAB PO ×3 (01:59→17:11)
[2022-07-03] MEDS: levalbuterol 0.63 mg/3 mL Neb INHALATION ×4 (03:37→19:41)
[2022-07-03 05:03] LABS: Basophils # 0.1 10^3/uL (0.0-0.1); Basophils % 0.3 %; Eosinophils # 0.2 10^3/uL (0.0-0.8); Eosinophils % 1.1 %; Hematocrit 44.9 % (37.0-47.0); Hemoglobin 14.8 g/dL (11.5-15.3); Lymphocytes # 0.7 10^3/uL (0.8-4.8); Lymphocytes % 4.3 %; Mean Corpuscular Hemoglobin 30.5 pg (28.0-34.0); Mean Corpuscular Volume 92.6 fl (81-99); Mean Platelet Volume 10.8 fL (7.4-10.4); Monocytes # 0.4 10^3/uL (0.2-0.9); Monocytes % 2.8 %; Neutrophils # 12.98 10^3/uL (1.8-7.7); Nucleated Red Blood Cells % 0.1 %; Platelet Count 199 10^3/cmm (130-400); Red Blood Count 4.85 10^6/uL (4.1-5.3); Red Cell Distribution Width 12.9 % (12.1-15.1); White Blood Count 15.1 10^3/uL (4.0-10.0)
[2022-07-03 05:23] LABS: Alanine Aminotransferase 40 U/L (0-33); Albumin Level 2.1 g/dL (3.5-5.2); Alkaline Phosphatase 155 U/L (35-105); Anion Gap 14.6 (5-19); Aspartate Amino Transferase 65 U/L (0-32); Blood Urea Nitrogen 33 mg/dL (8-23); Calcium 8.1 mg/dL (8.5-10.5); Carbon Dioxide 28 mmol/L (22-29); Chloride 97 mmol/L (98-107); Globulin 2.4 g/dL (1.3-4.6); Glomerular Filtration Rate 49.8 mL/min (90-130); Glucose 119 mg/dL (65-115); Osmolality Calculated 292 mOsm/kg (285-295); Sodium 137 mmol/L (136-145); Total Bilirubin 0.5 mg/dL (0.15-1.2); Total Protein 4.5 g/dL (6.6-8.7)
[2022-07-03 05:28] LABS: C Reactive Protein 49.9 mg/L (0.0-4.9)
[2022-07-03 05:38] LABS: Potassium 2.6 mmol/L (3.5-5.1)
[2022-07-03 05:54] LABS: Slide Review Slide Review Perform
[2022-07-03 05:55] LABS: Neutrophils % 91.5 %
--- NOTE | 2022-07-03 06:00 | XRR_ITS ---
PROCEDURE INFORMATION: Exam: XR Chest Exam date and time: 07/03/2022 7:47 AM Age: 66 years old Clinical indication: Shortness of breath; Additional info: Covid TECHNIQUE: Imaging protocol: Radiologic exam of the chest. Views: 1 view. Total images: 1028 COMPARISON: CR (CHEST, ) 07/01/2022 5:56 AM FINDINGS: Tubes, catheters and devices: A right infusion port is present. Left chest tube is again noted and is unchanged in position. Lungs: Stable left pleuroparenchymal disease. Nonspecific opacity in the right lung base, favoring atelectasis or pneumonia. Pleural spaces: No pneumothorax. Heart/Mediastinum: Heart size difficult to evaluate due to diffuse left pleuroparenchymal disease and shift of mediastinal structures. Bones/joints: Osseous structures are unchanged from the prior exam. Soft tissues: Soft tissue anchor in the right humeral head. Soft tissue anchor in the left humeral head. XR/XR chest 1V portable [id number] IMPRESSION: 1. Stable left pleuroparenchymal disease. 2. Nonspecific opacity in the right lung base, favoring atelectasis or pneumonia.
[2022-07-03] MEDS: ipratropium 0.5 mg/2.5 mL Neb INHALATION ×3 (08:34→19:41)
[2022-07-03] MEDS: budesonide 0.5 mg/2 mL Neb INHALATION ×2 (08:34→19:41)
[2022-07-03 09:07] LABS: Glucose Point of Care 123 mg/dL (70-110)
[2022-07-03] MEDS: ferrous gluconate 324 mg Tablet PO ×2 (09:21→17:11)
[2022-07-03] MEDS: allopurinol 100 mg Tablet PO ×2 (09:21→17:11)
[2022-07-03] MEDS: zinc gluconate 50 mg Tablet PO (09:21)
[2022-07-03] MEDS: ascorbic acid 500 mg Tablet PO ×2 (09:21→17:11)
[2022-07-03] MEDS: pantoprazole DR 40 mg Tablet PO (09:22)
[2022-07-03] MEDS: potassium chloride premix 100 ML 25 MEQ IV ×2 (09:25→12:02)
[2022-07-03] MEDS: lidocaine 5% Patch 1 PATCH TOPICAL ×2 (09:25→20:23)
[2022-07-03] MEDS: potassium chloride ER 20 mEq Tablet 40 MEQ PO ×2 (10:34→12:00)
--- NOTE | 2022-07-03 11:00 | PC.NURSE ---
Doctor in room this AM and told patient she needed to try and sit up in chair until afternoon. Patient was taken PRN pain medication for lower back pain. Patient did not have any complaints about staying up in chair but daughter was resistant to care stating that she needed to lay down frequently. Patient made no complaints.
[2022-07-03 11:48] LABS: Glucose Point of Care 157 mg/dL (70-110)
[2022-07-03] MEDS: insulin lispro 100 unit/1 mL SUBCUT ×2 (12:02→17:38)
--- NOTE | 2022-07-03 14:39 | P.PN_ITS ---
Subjective Subjective: No acute vents overnight. Seen with family at bedside. All the questions of family members answered in detail discussion today. Oxygen supplementation have turned down to 10 L. As per the patient's daughter she has been doing I-S and Acapella almost 30 minutes. Patient continues to remain rel uctant in getting out of bed because of pain and weakness. Has remained hemodynamically stable and afebrile. Continues to be weaned down on oxygen supplementation Vitals/I&O/Wt Last Vital Signs Temp 98 F 07/03/22 04:00 Pulse 97 07/03/22 13:00 Resp 22 H 07/03/22 13:00 BP 107/68 07/03/22 13:00 Pulse Ox 94 07/03/22 13:00 O2 Del Method 07/03/22 08:40 O2 Flow Rate 10 07/03/22 08:40 07/02/22 07/03/22 07/03/22 22:59 06:59 14:59 Intake Total 470 / 920 1029.167 / 1949.167 65.417 / 65.417 Output Total 200 / 400 400 / 800 Balance 270 / 520 629.167 / 1149.167 65.417 / 65.417 Physical Exam Const: COMMON NORMALS: no acute distress and patient oriented x3 HENMT: COMMON NORMALS: normocephalic HEAD & SCALP: normocephalic Neck/C-Spine: COMMON NORMALS: no JVD Resp: COMMON NORMALS: normal respiratory effort, No retractions and No use of accessory muscles OTHER: Decreased aeration on the left side of the lung, good air movement right lung Cardio: COMMON NORMALS: no JVD, regular rate, regular rhythm, S1 normal heart sound present and S2 normal heart sound present RATE: regular rate RHYTHM: regular rhythm HEART SOUNDS: S1 normal heart sound present and S2 normal he art sound present GI: COMMON NORMALS: Normal to inspection, nondistended, normoactive bowel sounds present, Soft to palpation, non-tender, No hepatosplenomegaly present, no masses and no bruits PALPATION: Yes Soft to palpation and Yes No hepatosplenomegaly present Extremity: NARRATIVE EXTREMITY EXAM: 2+ pitting edema bilateral lower extremity Neuro: COMMON NORMALS: patient oriented x3 Psych: COMMON NORMALS: mental status grossly normal Urinary Catheter Management: Pereira: Cath Placed During This Visit: yes Reason for Continuing Indwelling Catheter: Accurate Measurement of Urinary Output in Critically Ill Patients Urinary Catheter Date of Insertion: 06/30/22 Urinary Catheter Time of Insertion: 15:48 Data : 07/03/22 04:25 07/03/22 04:25 Micro: Microbiology 07/02/22 13:00 Gram Stain - Final Sputum - Expectorated Sputum Sputum Culture - Preliminary A&P Assessment and plan (1) Acute on chronic respiratory failure with hypoxia: Most likely secondary to a combination of large malignant left-sided pleural effusion in setting of recent diagnosis of small lung cell cancer, less likely secondary pneumonia, COVID-19 and CHF. Cannot rule out underlying pneumonia. CTA negative for pulmonary embolism, consistent with worsening of lung cancer. Status: Acute (2) Pleural effusion: Malignant. Post Lester drain placement. Care as per pulmonology team. Continue to follow fluid studies. Culture pending. Status: Acute (3) COVID-19: Hypoxia secondary to COVID-19 pneumonia: Mild to moderate disease. Symptoms less likely secondary COVID-19. Most likely secondary to large pleural effusion. Will review oxygenation again. Lester drain placement and thoracentesis. If oxygenation improving most likely will finish only 3-day course of remdesivir. Oxygen supplementation keeping saturation over 88%. Dexamethasone 6 mg daily. Remdesivir to finish a 5-day course. Vitamin C, zinc. DuoNeb every 6 hour, budesonide twice daily Pulmonary toilet with incentive spirometry flutter valve. We will monitor inflammatory markers including CRP, D-dimer every 48 hours. If getting elevated will dose Actemra. Patient was made aware of the same and he has given verbal consent. Less likely pulmonary embolism. Sputum culture not sent. Pro-Charli positive but most likely secondary to malignancy. Urine Legionella Bomback antigen negative. Fluid studies have been sent. Infection unlikely. MRSA in the past negative. Given hypoxia will try to keep patient as negative as possible. Echocardiogram done but not reported because of poor echo windows. Lasix as per fluid status. Plan for repeat limited echocardiogram after removal of fluid and hope of better cardiac windows Strict input output charting, daily weights. Status: Acute (4) Small cell lung cancer: Follows up with Dr. Ramirez as an outpatient. Not started on chemotherapy yet as undergoing further evaluation. Status: Acute (5) CHF exacerbation: No previous known history. Hold off on Lasix for now. Start on gentle IV hydration. Status: Acute Plan Hypoxic respiratory failure: Most likely secondary to worsening pulmonary fun ctions in setting of small cell lung carcinoma, malignant pleural effusion, COPD and COVID-19. Less likely CHF. Treatment of COVID-19 as above. Switch from dexamethasone to Solu-Medrol 40 mg IV every 8 hourly. Will de- escalate as per clinical picture. Continue to finish 5-day course of remdesivir. Heparin 5000 Q8 hourly. No PE. Monitor D-dimer and CRP every 48 hourly. Follow-up fluid cultures. Continue draining from Roman drain if and when possible. Plan for draining further today. Switch from Augmentin and Levaquin to IV Zosyn. MRSA negative. Start on normal saline at 50 cc/h. Patient counseled in detail regarding aggressive pulmonary toilet with I-S and Acapella. Patient and patient's family verbalized understanding. Plan to sit in the chair for as long as possible. Analgesia: Morphine, Tylenol Glycemic control: HbA1c 7. Start on low-dose insulin sliding scale. Nutrition: Cardiac diet, CODE STATUS: Full code. Discussed CODE STATUS in detail with patient and patient's daughter who is also the DPOA is at bedside. We discussed possibility of DNR/DNI versus DNR or just DNI. We discussed unfortunately patient has poor baseline health now given aggressive lung cancer and if she undergoes chest compressions possible that she will not come back to her baseline health anym ore. Patient and family verbalized understanding and would like to think further regarding CODE STATUS. PUD prophylaxis: Protonix DVT prophylaxis: SCDs Discharge planning: Home with home health possibly. Will need home oxygen evaluation prior to discharge. Continue with ICU care. This documentation was created by [employer] felting machine operator helper software. Every effort was made to ensure accuracy of felting machine operator helper. Any obvious errors or omissions should be clarified with the author of the document. Plan for the day: Continue with aggressive pulmonary toilet with out of bed to chair for as long as possible. I-S, Acapella frequently. Plan for repeat chest x-ray in a.m. and drainage of Lester drain fluid. Wean Solu-Medrol to 40 mg every 12 hourly. Continue Zosyn. We will continue to follow cultures and possibly discontinue antibiotics for the next 24 hours. Continue with ipratropium, Xopenex, Pulmicort. Wean oxygen supplementation keeping saturation over 88%. If remains difficult to wean off then will try with oxygen pendant. Replete potassium 120 meq. Poor prognosis. Attestations Medical Necessity Statement*: Requires further hospitalization for management of hypoxic respiratory failure requiring high oxygen supplementation Time Spent in Patient Care: Greater than 35 minutes Coding Level of Care Code Acute [employer] for Echo Fwd Diagnoses Acute on chronic respiratory failure with hypoxia J96.21 Pleural effusion J90 COVID-19 U07.1 Small cell lung cancer C34.90 CHF exacerbation I50.9
[2022-07-03 17:27] LABS: Glucose Point of Care 166 mg/dL (70-110)
--- NOTE | 2022-07-03 21:10 | PC.NURSE ---
Patient tranported via bed from ICU04 to [facility] 270 at 2109 with staff and x1 family member.
[2022-07-03] MEDS: atorvastatin 40 mg Tablet 80 MG PO (21:59)
[2022-07-03 22:27] LABS: Glucose Point of Care 112 mg/dL (70-110)
[2022-07-04] VITALS (11 sets, daily range): BP systolic 102–137; BP diastolic 59–77; PULSE 78–106; RESP 16–18; TEMP 36.7; O2SAT 83–95
[2022-07-04] MEDS: heparin 5,000 unit/mL INJ 1 mL 5000 UNIT SUBCUT ×2 (00:16→08:46)
[2022-07-04] MEDS: piperacillin-tazobactam 3.375 GM in sodium chloride 0.9% (plus) 50 ML IV ×2 (00:20→08:46)
[2022-07-04] MEDS: levalbuterol 0.63 mg/3 mL Neb INHALATION ×2 (02:55→08:21)
[2022-07-04 05:02] LABS: Basophils # 0.1 10^3/uL (0.0-0.1); Basophils % 0.4 %; Hematocrit 41.9 % (37.0-47.0); Hemoglobin 13.6 g/dL (11.5-15.3); Lymphocytes # 0.5 10^3/uL (0.8-4.8); Lymphocytes % 3.9 %; Mean Corpuscular HGB Conc 32.5 g/dL (30.0-36.0); Mean Corpuscular Hemoglobin 30.8 pg (28.0-34.0); Mean Corpuscular Volume 94.8 fl (81-99); Mean Platelet Volume 10.6 fL (7.4-10.4); Monocytes # 0.4 10^3/uL (0.2-0.9); Monocytes % 2.8 %; Neutrophils # 11.79 10^3/uL (1.8-7.7); Nucleated Red Blood Cells % 0 %; Platelet Count 188 10^3/cmm (130-400); Red Blood Count 4.42 10^6/uL (4.1-5.3); Red Cell Distribution Width 13.2 % (12.1-15.1); White Blood Count 13.8 10^3/uL (4.0-10.0)
[2022-07-04 05:22] LABS: Alanine Aminotransferase 43 U/L (0-33); Albumin Level 2.2 g/dL (3.5-5.2); Alkaline Phosphatase 170 U/L (35-105); Aspartate Amino Transferase 70 U/L (0-32); Blood Urea Nitrogen 27 mg/dL (8-23); Calcium 8.4 mg/dL (8.5-10.5); Carbon Dioxide 24 mmol/L (22-29); Chloride 105 mmol/L (98-107); Globulin 2.4 g/dL (1.3-4.6); Glomerular Filtration Rate 62.8 mL/min (90-130); Glucose 116 mg/dL (65-115); Osmolality Calculated 290 mOsm/kg (285-295); Sodium 137 mmol/L (136-145); Total Bilirubin 0.5 mg/dL (0.15-1.2); Total Protein 4.6 g/dL (6.6-8.7)
[2022-07-04 05:23] LABS: Anion Gap 12.5 (5-19); Potassium 4.5 mmol/L (3.5-5.1)
[2022-07-04 06:15] LABS: Glucose Point of Care 132 mg/dL (70-110)
[2022-07-04 07:32] LABS: Neutrophils % 93.9 %; Slide Review Slide Review Perform
[2022-07-04] MEDS: budesonide 0.5 mg/2 mL Neb INHALATION (08:21)
[2022-07-04] MEDS: ipratropium 0.5 mg/2.5 mL Neb INHALATION (08:21)
[2022-07-04] MEDS: ascorbic acid 500 mg Tablet PO (08:45)
[2022-07-04] MEDS: lidocaine 5% Patch 1 PATCH TOPICAL (08:45)
[2022-07-04] MEDS: zinc gluconate 50 mg Tablet PO (08:46)
[2022-07-04] MEDS: ferrous gluconate 324 mg Tablet PO (08:46)
[2022-07-04] MEDS: allopurinol 100 mg Tablet PO (08:46)
[2022-07-04] MEDS: pantoprazole DR 40 mg Tablet PO (08:46)
--- NOTE | 2022-07-04 10:24 | PC.SOCIAL ---
IMM update Imm updated with family, copy of page 2 provided. Family verbalized understanding. Copy in Chart initialed, timed and dated.
--- NOTE | 2022-07-04 10:46 | PM.DCS ---
Discharge Providers Date of Admission: 06/27/22 22:05 Date of Discharge: July 04, 2022 Attending Provider at Admission: Ruperto Woods MD Attending Provider at Discharge: Daniel Bliss MD Consults: Pulmonology: Dr. Zee Primary Care Provider: Tri Ludwig NP Diagnoses at Discharge Discharge Diagnosis (1) Acute on chronic respiratory failure with hypoxia: Status: Acute (2) Pleural effusion: Status: Acute (3) COVID-19: Status: Acute (4) Small cell lung cancer: Status: Acute (5) CHF exacerbation: Status: Acute Reason for Visit Reason for Visit: SOB Hospital Course Hospital Course Edilma Langston is a 66-year-old female with a history of COPD, initially presented to [facility] on May 30, 2022 with progressive shortness of breath which did not respond to prednisone, she underwent CT scan of the chest on May 30, 2022 which showed large left pleural effusion, stranding and patchy opacities are seen within the left hemithorax superimposed over pleural effusion.? Ill-defined soft tissue attenuation seen in the left upper hemithorax, size about 6.4 x 5.2 x 4.7 cm.? There is a mildly irregular spiculated pulmonary nodule seen in right upper lobe size 1.4 x 2 x 2.3 cm and ill-defined hypoattenuation lesions within the liver, largest is seen in the right hepatic lobe measuring approximately 3 cm in diameter? Highly suspicious for metastatic disease.? On May 31, 2022 she underwent left thoracentesis and pleural fluid cytology confirmed metastatic carcinoma based on immunohistochemistry.? 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 Patient has longstanding history of smoking and still smoking about a pack a day, denies alcohol use.,? She is on home oxygen for COPD. She was seen by my collegue Dr. Reeder lungs today in clinic after her diagnosis.? He optimized her COPD medications and recommended to use Bevespi and leave albuterol.? Pulmonary function tests were deferred due to pleural effusion.? She was requiring 4 L supplemental oxygen at home.? Patient became more dyspneic and has to undergo thoracentesis for the second time 10 days ago-about 1400 cc fluid is drained.? Postprocedure chest x-ray did not improve much-raising suspicion for anteriorly loculated effusion.? She came back to emergency room on 06/27/2022 with increasing dyspnea and also worsening bilateral extremity edema.She was taking Lasix 20 Mg as needed at home.? CT chest imaging reviewed increased size of large left pleural effusion with extensive consolidation/compressive atelectasis of left lung and multiple pleural-based masses.? Fluid does not appear to be loculated.? There is also a concern that some part of this pleural effusion can be from atelectasis of the left lung due to possible endobronchial mass lesion.? However it is hard to say at this point due to large pleural effusion contributing to compressive atelectasis. Patient admitted to hospital further evaluation and management. She was found to be positive for COVID-19. She was started on treatment for COVID-19 with dexamethasone and remdesivir. She is started on IV diuresis. It is believed her hypoxic respiratory failure is most from malignant pleural effusion along with underlying malignancy and less from COVID-19. PE was ruled out. Pulmonology was consulted for recurrent pleural effusion even after thoracentesis. Discussed for admission within the last 3 weeks. Infectious causes were ruled out. Patient blood culture, sputum culture remain negative. She underwent Pleurx catheter placement on 06/29. Overall more than 2.5 L was drained during hospitalization. Fluid studies were negative for any signs of infection. Her hospitalization was complicated by her developing episodes of hypoxic respiratory failure post Sonoma drain placement. Pneumothorax was ruled out. She was treated with broadening of antibiotics along with IV steroids and evaluation treatment. Patient was encouraged multiple times to be out of bed and aggressive pulmonary toilet with I-S and Acapella. Patient responded really well to aggressive pulmonary toilet and is back to around 4 to 5 L of oxygen supplementation to keep saturation more than 92%. During hospitalization she also developed mild ASHLEY which was treated with IV hydration. Echocardiogram was tried multiple times but because of poor echo windows most likely from distorted lung from malignancy and pleural effusion no good echo window was available. Home health is being arranged. She has been discharged hemodynamically stable condition on oral Augmentin and Levaquin for 5 days. She is to continue nebulization with DuoNebs and Pulmicort. She is to continue drainage with Sonoma drain every third day. Roman drain care has been explained in detail with the patient and patient's family. Patient has a PET scan scheduled for 07/05 on Tuesday. Physical Exam Const: COMMON NORMALS: no acute distress and patient oriented x3 HENMT: COMMON NORMALS: normocephalic HEAD & SCALP: normocephalic Neck/C-Spine: COMMON NORMALS: no JVD Resp: COMMON NORMALS: normal respiratory effort, No retractions and No use of accessory muscles OTHER: Decreased aeration on the left side of the lung, good air movement right lung Cardio: COMMON NORMALS: no JVD, regular rate, regular rhythm, S1 normal heart sound present and S2 normal heart sound present RATE: regular rate RHYTHM: regular rhythm HEART SOUNDS: S1 normal heart sound present and S2 normal heart sound present GI: COMMON NORMALS: Normal to inspection, nondistended, normoactive bowel sounds present, Soft to palpation, non-tender, No hepatosplenomegaly present, no masses and no bruits PALPATION: Yes Soft to palpation and Yes No hepatosplenomegaly present Extremity: NARRATIVE EXTREMITY EXAM: 2+ pitting edema bilateral lower extremity Neuro: COMMON NORMALS: patient oriented x3 Psych: COMMON NORMALS: mental status grossly normal Urinary Catheter Management: Pereira: Cath Placed During This Visit: yes Reason for Continuing Indwelling Catheter: Accurate Measurement of Urinary Output in Critically Ill Patients Urinary Catheter Date of Insertion: 06/30/22 Urinary Catheter Time of Insertion: 15:48 Discharge Data Studies Completed and Pending Completed Studies During Hospitalization Category Date Time Status CT chest wo con [id number] Stat Cat Scan 06/27/22 20:[address] chest wo con [id number] Urgent Cat Scan 06/28/22 19:44 Completed CTA chest [CT angio chest PE protcl 71506] Stat Cat Scan 06/30/22 12:58 Completed CXRP [XR chest 1V portable [id number]] Stat Exams 06/30/22 12:35 Completed XR chest 1V portable 41622 Q48H Exams 06/29/22 06:00 Completed XR chest 1V portable [id number] Q48H Exams 07/01/22 06:00 Completed XR chest 1V portable [id number] Q48H Exams 07/03/22 06:00 Completed XR chest 1V portable [id number] Routine Exams 06/28/22 07:00 Completed XR chest 1V portable [id number] Stat Exams 06/27/22 19:11 Completed XR chest 1V portable [id number] Stat Exams 06/29/22 15:44 Completed CV. echo complete* [id number] Routine Ultrasound 06/29/22 14:29 Completed CV. echo limited [id number] Routine Ultrasound 07/01/22 08:27 Completed Pending at discharge Category Date Time Status C Reactive Protein Q48H Lab 07/05/22 04:00 Ordered Complete Blood Count w/Auto AM LABS Lab 07/05/22 04:00 Ordered Comprehensive Metabolic Panel AM LABS Lab 07/05/22 04:00 Ordered D Dimer Q48H Lab 07/05/22 04:00 Ordered Mycobacteria, Culture w/Fluor Routine Lab 06/27/22 16:30 Received Sputum Culture and Gram Stain Stat Lab 07/02/22 13:00 Results Radiology Impressions Chest CT 06/28/22 19:44 IMPRESSION: 1. There is increasing ground-glass/airspace opacity in the right lung especially the right lower lobe concerning for progressing pneumonic infiltrate. 2. Larger giant left pleural effusion compared to the prior exam with extensive consolidation/compressive atelectasis left lung and multiple pleural based masses. Unchanged extensive thoracoabdominal metastatic disease. Fleischner Society follow up recommendations for incidental nodules are not indicated. Follow up per the patient's medical condition. Chest CTA 06/30/22 12:58 IMPRESSION: 1. No evidence of pulmonary embolus. 2. Improved LEFT pleural effusion with LEFT chest tube. Persistent circumferential pleural thickening LEFT lung with pleural masses and metastatic disease similar to previous. 3. Similar-appearing groundglass infiltrates in RIGHT lower lobe. 4. Spiculated mass in the RIGHT upper lobe is unchanged. 5. No other significant changes compared to the recent examinations. Chest X-Ray 07/03/22 06:00 IMPRESSION: 1. Stable left pleuroparenchymal disease. 2. Nonspecific opacity in the right lung base, favoring atelectasis or pneumonia. Laboratory Results WBC 13.8 10^3/uL (4.0-10.0) H 07/04/22 04:28 RBC 4.42 10^6/uL (4.1-5.3) 07/04/22 04:28 Hgb 13.6 g/dL (11.5-15.3) 07/04/22 04:28 Hct 41.9 % (37.0-47.0) 07/04/22 04:28 MCV 94.8 fl (81-99) 07/04/22 04:28 MCH 30.8 pg (28.0-34.0) 07/04/22 04:28 MCHC 32.5 g/dL (30.0-36.0) 07/04/22 04: RDW 13.2 % (12.1-15.1) 07/04/22 04:28 Plt Count 188 10^3/cmm (130-400) 07/04/22 04:28 MPV 10.6 fL (7.4-10.4) H 07/04/22 04:28 Neut % (Auto) 93.9 % 07/04/22 04:28 Lymph % (Auto) 3.9 % 07/04/22 04:28 Morrow % (Auto) 2.8 % 07/04/22 04: Eos % (Auto) 0.0 % 07/04/22 04: Baso % (Auto) 0.4 % 07/04/22 04:28 Neut # (Auto) 11.79 10^3/uL (1.8-7.7) H 07/04/22 04:28 Lymph # (Auto) 0.5 10^3/uL (0.8-4.8) L 07/04/22 04:28 Morrow # (Auto) 0.4 10^3/uL (0.2-0.9) 07/04/22 04:28 Eos # (Auto) 0.0 10^3/uL (0.0-0.8) 07/04/22 04:28 Baso # (Auto) 0.1 10^3/uL (0.0-0.1) 07/04/22 04:28 Nucleated RBC % (auto) 0 % 07/04/22 04:28 Total Counted 100 (0-100) 06/30/22 03:30 Atypical Lymphs % 0.0 % (0-5) 06/30/22 03:30 Absolute Neutrophils 9.1 10^3/cmm (1.4-6.5) H 06/30/22 03:30 Segmented Neutrophils 92 % 06/30/22 03:30 Abs Segm Neuts (Man) 9.1 10/cmm (1.6-7.1) H 06/30/22 03:30 Band Neutrophils 0.0 % 06/30/22 03:30 Abs Band Neuts (Man) 0.0 10^3/cmm (0.0-1.2) 06/30/22 03:30 Absolute Lymphocytes 0.4 10^3/cmm (1.2-3.4) L 06/30/22 03:30 Lymphocytes (Manual) 4 % 06/30/22 03:30 Monocytes (Manual) 3.0 % 06/30/22 03:30 Absolute Monocytes 0.3 10^3/cmm (0.1-0.6) 06/30/22 03:30 Eosinophils (Manual) 0 % 06/30/22 03:30 Absolute Eosinophils 0.0 10^3/cmm (0.0-0.7) 06/30/22 03:30 Basophils (Manual) 0.0 % 06/30/22 03:30 Absolute Basophils 0.0 10^3/cmm (0.0-0.2) 06/30/22 03:30 Metamyelocytes 1.0 % 06/30/22 03:30 Nucleated RBCs # 0.0 /100WBC 07/04/22 04:28 Platelet Estimate Normal (Normal) 06/30/22 03:30 D-Dimer 2.70 ug/mIFEU (0-0.59) H 07/03/22 04:25 Specimen Type Arterial 06/27/22 19:23 Sample Site Radial, left 06/27/22 19: ABG pH 7.50 (7.35-7.45) H 06/27/22 19: ABG pCO2 44.4 mmHg (35-45) 06/27/22 19: ABG pO2 73.4 mmHg (80.0-100.0) L 06/27/22 19: ABG HCO3 34.2 mmol/L (22-26) H 06/27/22 19: ABG Base Excess 9.5 mmol/L (-2.0-2.0) H 06/27/22 19: Mihir Test Pos 06/27/22 19: Hematocrit 51.0 % (37-47) H 06/27/22 19: Hgb O2 Saturation 94.4 % (95-100) L 06/27/22 19: Carboxyhemoglobin 0.9 %THgb (0.4-20.1) 06/27/22 19: Methemoglobin 0.7 % (0.4-1.5) 06/27/22 19:23 Total Hemoglobin 16.7 g/dL (12-16) H 06/27/22 19:23 O2 Delivery Device Nc 06/27/22 19:23 O2 Liters/Min 5.0 % 06/27/22 19:23 Rn Clinical Appeals ID Clementine 06/27/22 19:23 Sodium 137 mmol/L (136-145) 07/04/22 04:28 Potassium 4.5 mmol/L (3.5-5.1) 07/04/22 04:28 Chloride 105 mmol/L (98-107) 07/04/22 04:28 Carbon Dioxide 24 mmol/L (22-29) 07/04/22 04:28 Anion Gap 12.5 (5-19) 07/04/22 04:28 BUN 27 mg/dL (8-23) H 07/04/22 04:28 Creatinine 0.9 mg/dL (0.5-0.9) 07/04/22 04:28 GFR Calculation 62.8 mL/min (90-130) L 07/04/22 04:28 Glucose 116 mg/dL (65-115) H 07/04/22 04:28 POC Glucose 132 mg/dL (70-110) H 07/04/22 06:11 Estimat Average Glucose 154 06/29/22 05:17 Hemoglobin A1c 7.0 % (4.0-6.0) H 06/29/22 05:17 Calculated Osmolality 290 mOsm/kg (285-295) 07/04/22 04:28 Lactic Acid 1.3 mmol/L (0.5-2.2) 06/27/22 19:25 Calcium 8.4 mg/dL (8.5-10.5) L 07/04/22 04:28 Phosphorus 3.6 mg/dL (2.5-4.5) 06/30/22 03:30 Magnesium 2.1 mg/dL (1.7-2.3) 06/30/22 03:30 Iron 71 ug/dL (37-145) 06/28/22 14:51 TIBC 185 mcg/dl 06/28/22 14:51 % Saturation 38.3 % (20-50) 06/28/22 14:51 Unsat Iron Binding 114 ug/dL (112-347) 06/28/22 14:51 Total Bilirubin 0.5 mg/dL (0.15-1.2) 07/04/22 04:28 AST 70 U/L (0-32) H 07/04/22 04:28 ALT 43 U/L (0-33) H 07/04/22 04:28 Alkaline Phosphatase 170 U/L (35-105) H 07/04/22 04:28 Troponin T Baseline 73 ng/L (0-10) H 06/27/22 19:15 Troponin T 120 Minute 56.94 ng/L (0-10) H 06/27/22 23:11 Delta Troponin T -16.06 ABS# (0-10) L 06/27/22 23:11 Troponin T Hi Sens 6Hr 59.74 ng/L (0-10) H 06/28/22 02:08 Troponin T Hi Sens 6Hr Delta -13.26 ng/L (0-12) L 06/28/22 02:08 C-Reactive Protein 49.9 mg/L (0.0-4.9) H 07/03/22 04:25 NT-Pro-B Natriuret Pep 2149 pg/mL (0-125) H 06/29/22 05:17 Total Protein 4.6 g/dL (6.6-8.7) L 07/04/22 04:28 Albumin 2.2 g/dL (3.5-5.2) L 07/04/22 04:28 Globulin 2.4 g/dL (1.3-4.6) 07/04/22 04:28 Vitamin B12 544 pg/mL (232-1245) 06/28/22 14:51 Folate 5.8 ng/mL (4.8-37.3) 06/28/22 14:51 Procalcitonin 16.32 ng/mL (0-0.5) H 07/02/22 09:05 Urine Color Yellow (Yellow) 06/29/22 03:41 Urine Appearance Clear (CLEAR) 06/29/22 03:41 Urine pH 5 (5-7) 06/29/22 03:41 Ur Specific [place] 1.015 (1.005-1.030) 06/29/22 03:41 Urine Protein Neg (Negative) 06/29/22 03:41 Urine Glucose (UA) Norm (Normal) 06/29/22 03:41 Urine Ketones Negative (Negative) 06/29/22 03:41 Urine Blood Neg (Negative) 06/29/22 03:41 Urine Nitrate Negative (Negative) 06/29/22 03:41 Urine Bilirubin Neg (Negative) 06/29/22 03:41 Urine Urobilinogen Norm mg/dL (Negative) 06/29/22 03:41 Ur Leukocyte Esterase Negative (Negative) 06/29/22 03:41 Ur Eosinophil Smear Not Reportable 06/29/22 03:41 Urine Eosinophils No eosinophils seen 06/29/22 03:41 Ur Random Sodium 17 mmol/L 06/29/22 03:41 Ur Random Potassium 61 mmol/L 06/29/22 03:41 Ur Random Chloride 26 mmol/L 06/29/22 03:41 Urine Creatinine 112 mg/dL (-217) 06/29/22 03:41 Fluid Color Red 06/27/22 16:30 Fluid Appearance Cloudy 06/27/22 16:30 Fluid WBC 1275 /uL 06/27/22 16:30 Fluid RBC 166.000 10^3/uL 06/27/22 16:30 Fluid Hematocrit 1.6 % 06/27/22 16:30 Fld Polynuclear WBCs # 0.030 06/27/22 16:30 Fld Polynuclear WBCs % 2.300 % 06/27/22 16:30 Fl Mononucl WBCs #(Auto) 1.245 06/27/22 16:30 Fl Mononuclear % Auto 97.700 % 06/27/22 16:30 Fluid Albumin 2.2 g/dL 06/27/22 16:30 Fluid Creatinine 1.01 (0.5-0.9) H 06/27/22 16:30 Pleural pH 8.00 (6.5-7.5) H 06/27/22 16:30 Pleural Total Protein 3.8 g/dL 06/27/22 16:30 Pleural LDH 1088 U/L 06/27/22 16:30 Pleural Glucose 119.0 mg/dL 06/27/22 16:30 Pleural Amylase 66.0 U/L 06/27/22 16:30 Pleural Triglycerides 58 mg/dL 06/27/22 16:30 Coronavirus 229E (PCR) Not detected (NOT DETECT) 06/27/22 19:26 SARS-CoV-2 (PCR) Detected (NOT DETECT) A 06/27/22 19:26 Vitals Last Vital Signs Temp 98.1 F 07/04/22 08:00 Pulse 100 07/04/22 08:30 Resp 18 07/04/22 08:22 BP 137/77 07/04/22 08:00 Pulse Ox 93 07/04/22 08:24 O2 Del Method 07/04/22 08:24 O2 Flow Rate 5 07/04/22 08:24 Discharge Plan Discharge Patient Disposition: Home Condition: Stable Prescriptions: New ferrous gluconate 324 mg (37.5 mg iron) Tablet 324 mg PO BIDWM Qty: 60 0RF zinc gluconate 50 mg Tablet 50 mg PO DAILY Qty: 14 0RF budesonide [Pulmicort] 0.5 mg/2 mL suspension for nebulization 0.25 mg inhalation Q12H Qty: 60 0RF ipratropium bromide 0.02 % solution 1.25 ml inhalation Q8H Qty: 75 0RF prednisone 10 mg tablet See Taper PO DAILY Qty: 60 0RF Taper: predniSONE 60-10 60 mg Daily for 3 Days and 0 Hour 50 mg Daily for 3 Days and 0 Hour 40 mg Daily for 3 Days and 0 Hour 30 mg Daily for 3 Days and 0 Hour 20 mg Daily for 3 Days and 0 Hour 10 mg Daily for 3 Days and 0 Hour ascorbic acid (vitamin C) [Vitamin C] 500 mg Tablet 500 mg PO DAILY Qty: 14 0RF amoxicillin-pot clavulanate [Augmentin] 500-125 mg tablet 1 tab PO BID Qty: 10 0RF levofloxacin 500 mg tablet 500 mg PO Q24H 5 Days Qty: 5 0RF Continued omeprazole 40 mg capsule,delayed release(DR/EC) 40 mg PO DAILY 56 Days Qty: 60 0RF docusate sodium 100 mg capsule 100 mg PO DAILY levalbuterol HCl 0.63 mg/3 mL solution for nebulization 0.63 mg inhalation TID PRN (Reason: shortness of breath or wheezing) 30 Days Qty: 270 4RF Stiolto Respimat 2.5-2.5 mcg/actuation mist 2 puff inhalation DAILY Qty: 4 3RF miscellaneous medical supply Misc 1 ea miscellaneous ONCE Qty: 1 0RF Rx Instructions: please dispense one rolator with seat. ezetimibe [Zetia] 10 mg tablet 10 mg PO DAILY rosuvastatin 40 mg tablet 40 mg PO BEDTIME allopurinol [Zyloprim] 100 mg tablet 100 mg PO BID Rx Instructions: to start taking a day before chemo starts hydrocodone-acetaminophen 5-325 mg tablet 1 tab PO Q6H PRN (Reason: Pain) levalbuterol tartrate 45 mcg/actuation HFA aerosol inhaler 2 puff INHALATION Q6H PRN (Reason: Shortness Of Breath) cholecalciferol (vitamin D3) 1,250 mcg (50,000 unit) Capsule 50,000 unit PO Q7D Rx Instructions: for 8 weeks then start 5,000 units daily Changed furosemide [Lasix] 20 mg tablet 20 mg PO DAILY 30 Days Qty: 30 3RF Discharge Orders: Discharge Order (Routine); Ordered 07/04/22 Ordered By: Daniel Bliss Other Ambulatory Orders: DME: Nebulizer with Neb Kit (Order) Location: None Selected Ordered By: Daniel Bliss DME: Oxygen (Order) Location: None Selected Ordered By: Daniel Bliss DME: Walker (Order) Location: None Selected Ordered By: Daniel Bliss Referrals: Tri Ludwig NP [Primary Care Provider] - 4-7 days Discharge Diet: Cardiac Discharge Activity: Resume usual activity and Increase activity as tolerated Patient Instructions: Heart Failure (ED), Pleural Effusion (GEN), How to Care for Your Chest or Abdominal Catheter (GEN), COVID-19 (Coronavirus Disease 2019) (GEN), CHF Stoplight, Opioid Safety Activity Restrictions/Additional Instructions: Please take steroid taper as prescribed. Lasix dose has been changed to 20 mg daily. Please maintain your appointment for PET scan. Please follow-up with oncology on set appointment for initiation of chemotherapy at the earliest. You will be on 2 antibiotics Augmentin and Levaquin for 5 days. Augmentin is to be taken twice daily and Levaquin to be once daily. Please follow-up with a primary care provider within next 4 to 7 days for repeat BMP. You can contain drain for from Roman drain every third day or as needed for shortness of breath. At one time do not drain more than 200 cc. If fluid is still being drained more than 200 cc wait for 1 hour and drain again. Please make sure that you continue to do daily incentive spirometry and flutter valve as discussed in detail. Discharge Attestations Time Spent in Discharge Care*: greater than 30 min Specific Discharge Activities: educating patient, educating and/or supporting family/caregiver, discussing with case management director/social workers/dc planners, documenting/other paperwork and evaluating patient/reviewing data Status at Discharge: Cognitive status at discharge: cognitively intact, Behavioral status at discharge: cooperative, Functional status at discharge: other assisted ambulation, Overall status at discharge: patient is progressing back to baseline Quality Metrics Clinical Quality Measures [ No reported AMI, CVA or VTE this stay] Coding Level of Care Code Acute Chg FW DC note Diagnoses Acute on chronic respiratory failure with hypoxia J96.21 Pleural effusion J90 COVID-19 U07.1 Small cell lung cancer C34.90 CHF exacerbation I50.9
[2022-07-04 12:10] LABS: Glucose Point of Care 156 mg/dL (70-110)
[2022-07-04] MEDS: insulin lispro 100 unit/1 mL SUBCUT (12:24)
--- NOTE | 2022-07-09 14:53 | PC.SOCIAL ---
CM attempted to contact patient's daughter as left in hand off. CM attempted to contact daughter and line was disconnected. Patient's daughter left a VM stating that she was trying to get ahold of Theresa about her mother's lost glasses and the hospital possibly paying for it. CM spoke to Theresa Espino and she states that yes she talked to daughter on Tuesday and she notified Diane Baltazar. CM emailed Diane as voicemail was left today.
== END 2022-07-04 12:57 | disposition home or self-care (01) | DRG 180 ==
LOC: ER 21:21 → MEDSURG 22:06 → ICU 07-01 16:17 → MEDSURG 07-03 21:32
PROVIDERS: Admitting Provider Family Medicine; Emergency Provider Emergency Medicine; PCP Nurse Practitioner Family; Visit Provider Student in an Organized Health Care Education/Training Program
DX: C34.92 Malignant neoplasm of unspecified part of left bronchus or lung (principal); I50.33 Acute on chronic diastolic (congestive) heart failure; J96.21 Acute and chronic respiratory failure with hypoxia; U07.1 COVID-19; J91.0 Malignant pleural effusion; J98.11 Atelectasis; N17.9 Acute kidney failure, unspecified; Z99.81 Dependence on supplemental oxygen; J44.9 Chronic obstructive pulmonary disease, unspecified; K76.9 Liver disease, unspecified; Z87.891 Personal history of nicotine dependence
CPT/HCPCS: 32555; 36415; 36416; 36591; 36600; 51702; 71045; 71250; 71275; 80048; 80053; 80503; 81003; 82042; 82150; 82436; 82570; 82607; 82746; 82805; 82945; 82962; 83036; 83540; 83550; 83605; 83615; 83735; 83880; 83986; 84100; 84133; 84145; 84157; 84300; 84478; 84484; 85007; 85014; 85025; 85378; 85999; 86140; 86403; 87015; 87070; 87075; 87077; 87106; 87116; 87186; 87205; 87206; 87449; 87635; 87641; 87801; 89050; 93005; 93306; 93308; 94640; 94664; 94760; 94762; 96365; 96372; 99285; J1100; J1170; J1644; J1815; J1940; J2543; J2920; J3480; J7030; J7040; J7614; J7626; J7644; Q9967

== ENCOUNTER → 2022-07-09 09:05 | Outpatient (BNVA) | payer MEDICARE, MEDICAID, SELFPAY | PROVIDERS: PCP Nurse Practitioner Family; Visit Provider Internal Medicine Pulmonary Disease | DX: Z48.02 Encounter for removal of sutures (principal); C34.92 Malignant neoplasm of unspecified part of left bronchus or lung; J96.21 Acute and chronic respiratory failure with hypoxia; I50.9 Heart failure, unspecified; J44.9 Chronic obstructive pulmonary disease, unspecified; Z87.891 Personal history of nicotine dependence; Z99.81 Dependence on supplemental oxygen; Z86.16 Personal history of COVID-19 | CPT/HCPCS: 99204 ==

== ENCOUNTER → 2022-07-15 12:00 | Outpatient (BNVA) | payer MEDICARE, MEDICAID, SELFPAY | PROVIDERS: PCP Nurse Practitioner Family; Visit Provider Nurse Practitioner Family | DX: C34.90 Malignant neoplasm of unspecified part of unspecified bronchus or lung (principal); E78.2 Mixed hyperlipidemia | CPT/HCPCS: 80048 ==

== ENCOUNTER → 2022-07-16 12:26 | Outpatient (BNVA) | payer MEDICARE, MEDICAID, SELFPAY | PROVIDERS: PCP Nurse Practitioner Family; Visit Provider Nurse Practitioner Family | DX: Z09 Encounter for follow-up examination after completed treatment for conditions other than malignant neoplasm (principal) | CPT/HCPCS: 81003 ==

== ENCOUNTER 2022-07-20 06:00 | Oncology outpatient (recurring) (ONCR) | payer MEDICARE, MEDICAID, SELFPAY | END 2022-07-29 10:24 | disposition home or self-care (01) | LOC: ONCMED 07-29 10:23 | PROVIDERS: PCP Nurse Practitioner Family; Visit Provider Internal Medicine Hematology & Oncology | DX: C34.90 Malignant neoplasm of unspecified part of unspecified bronchus or lung (principal); Z87.891 Personal history of nicotine dependence; Z53.9 Procedure and treatment not carried out, unspecified reason; C34.11 Malignant neoplasm of upper lobe, right bronchus or lung; J91.0 Malignant pleural effusion; C78.7 Secondary malignant neoplasm of liver and intrahepatic bile duct; J44.9 Chronic obstructive pulmonary disease, unspecified; F41.9 Anxiety disorder, unspecified; R06.02 Shortness of breath | CPT/HCPCS: 80053; 85025 ==

== ENCOUNTER 2022-07-21 10:42 | Outpatient (RCR) | payer MEDICARE, MEDICAID, SELFPAY ==
[2022-07-14 12:55] VITALS: BP 106/59; PULSE 105; RESP 18; TEMP 35.8; O2SAT 90
--- NOTE | 2022-07-14 13:10 | PC.NURSE ---
Pt to GI lab for Pleurx cath to be drained. 75 mL bloody red drainage emptied from drain. Pt denies SOB or feeling like lungs are full . Tolerated well. Pt scheduled every Tuesday for drainage of Pluerx cath as ordered.
[2022-07-21 10:53] VITALS: BP 89/49; PULSE 97; RESP 18; TEMP 35.6; O2SAT 94
--- NOTE | 2022-07-21 10:55 | PC.NURSE ---
Pt to GI lab for drainage of Pluerx cath. Pluerx cath to left flank drained of 50 mL sang fluid. Pt denies feeling full in lungs or feeling like she is drowning . States its just hard to move air in and out. Dr. Zee notified of amount drained. Pt on weekly schedule for cath to be drained.
== END 2022-07-24 23:59 | disposition home or self-care (01) ==
LOC: GILAB 10:42
PROVIDERS: PCP Nurse Practitioner Family; Visit Provider Internal Medicine Pulmonary Disease
DX: J90 Pleural effusion, not elsewhere classified (principal); C34.90 Malignant neoplasm of unspecified part of unspecified bronchus or lung

== ENCOUNTER 2022-07-22 16:49 | Inpatient (IN) | payer MEDICARE, MEDICAID, SELFPAY ==
[2022-07-22] VITALS (21 sets, daily range): BP systolic 74–123; BP diastolic 32–73; PULSE 98–113; RESP 17–30; TEMP 35.8–36.6; O2SAT 94–100; BMI 37.3
--- NOTE | 2022-07-22 16:56 | XRR_ITS ---
PROCEDURE INFORMATION: Exam: XR Chest Exam date and time: 07/22/2022 6:14 PM Age: 66 years old Clinical indication: Dyspnea TECHNIQUE: Imaging protocol: Radiologic exam of the chest. Views: 1 view. COMPARISON: CR (CHEST, ) 07/03/2022 7:47 AM FINDINGS: Tubes, catheters and devices: Right chest port terminates in the distal SVC. Left chest tube is similar in positioning. Lungs: Persistent opacification/whiteout of the left lung, no significant interval change. Right lung is clear. Pleural spaces: No pneumothorax. Heart/Mediastinum: Stable heart size. Bones/joints: Rotator cuff repair anchors noted in both humeral heads. Visualized osseous structures are intact. XR/XR chest 1V portable [id number] IMPRESSION: Persistent opacification of the left lung. No significant interval change.
--- NOTE | 2022-07-22 16:57 | ECG_ITS ---
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 Measurements Intervals [place] Rate: 95 P: 73 WI: 132 QRS: -35 QRSD: 133 T: 74 QT: 390 QTc: 491 Interpretive Statements SINUS RHYTHM LEFT AXIS DEVIATION [QRS AXIS < -30] RIGHT BUNDLE BRANCH BLOCK [120+ ms QRS DURATION, UPRIGHT V1, 40+ ms S IN I/aVL/V4/V5/V6] POSSIBLE SEPTAL MYOCARDIAL INFARCTION , OF INDETERMINATE AGE [30 ms Q WAVE IN V1/V2] Compared to ECG 06/30/2022 12:39:45 Left-axis deviation now present Right bundle-branch block now present Myocardial infarct finding now present Sinus tachycardia no longer present Short WI interval no longer present Incomplete right bundle-branch block no longer present Left anterior fascicular block no longer present Electronically Signed On 07-23-2022 0:18:04 CDT by Alirio Gallo M.D. [email or web address]
--- NOTE | 2022-07-22 17:25 | W.ED.GENADLT ---
HPI - General Adult General: Chief complaint: Shortness of Breath/Dyspnea Stated complaint: lung cancer Time Seen by Provider: 07/22/22 16:56 History of Present Illness: Patient is a 66-year-old female with a history of asthma, COPD, smoking, stage IV metastatic lung cancer not currently on chemotherapy presenting to the emergency room with for concerns of respiratory distress. Patient chronically has a left-sided pleural effusion with pleurvac that was drained on 07/09/[address] Zee. For the last week, patient has had increased respiratory distress. Earlier today, family noticed increased patient was breathing heavily and satting at 82% on room air. EMS was called. By time EMS arrived, patient was increased to 6 L oxygen with a sat of 91%. Patient is currently full code. Patient denies any productive sputum, chest pain, fever, malaise, body aches, diarrhea melena hematochezia. No complaints currently. Patient is not on any chemotherapy. Onset: 1 week ago Duration:1 week Location:home Severity:moderate Associated symptoms: Reports dyspnea; Deny chest pain, nausea, rash, palpitations or vomiting Review of Systems Const: Denies: fever(s) or chills Eyes: Denies: change in vision ENMT: Denies: mouth pain Card: Denies: chest pain or palpitations Resp: Reports: dyspnea; Denies: non-productive cough GI: Denies: abdominal pain, nausea, vomiting or diarrhea : Denies: dysuria Musc: Denies: extremity pain Skin/Breast: Denies: rash or new lesions Neuro: Denies: weakness in extremities Psych: Reports: other (Normal mood) Mir/Lymph: Denies: easy bruising PFSH ED PFSH: Medical History Anxiety Arthritis of both knees Asthma CAD (coronary artery disease) COPD (chronic obstructive pulmonary disease) Depressed Enrolled in chronic care management GERD (gastroesophageal reflux disease) History of MRSA infection History of vitamin D deficiency HLD (hyperlipidemia) Insomnia Mixed hyperlipidemia Shoulder pain Small cell lung cancer Smoking addiction Visit for suture removal Surgical History H/O lumpectomy History of bilateral tubal ligation History of D&C History of knee surgery Hx of cholecystectomy Hx of tonsillectomy Family History Father CAD (coronary artery disease) [place] (mitral incompetence) COPD (chronic obstructive pulmonary disease) Lung disease Mother Cancer Lung disease Other Diabetes Hyperlipidemia Denies family history of Clotting disorder Dementia Psychiatric illness Chronic kidney disease (CKD) Suicide Anesthesia complication Bleeding disorder Hypertension Stroke Social History Smoking and tobacco status: never smoked Quit status (tobacco): has quit using tobacco Year quit tobacco: 2021 Former quit date comment: 1-2ppd x 49 years Alcohol intake: never Lives independently: Yes Household members: spouse Marital status: Physical Exam Const: COMMON NORMALS: alert HENMT: COMMON NORMALS: atraumatic HEAD & SCALP: atraumatic MOUTH: moist mucous membranes not abnormal Eye: COMMON NORMALS: EOMs intact bilaterally and conjunctivae normal CONJUNCTIVA: Yes conjunctivae normal Neck/C-Spine: COMMON NORMALS: full ROM and supple Resp: OTHER: + Tachypnea, coarse breath sounds b/l +decreased breath sounds L side Cardio: COMMON NORMALS: regular rate RATE: regular rate GI: COMMON NORMALS: Soft to palpation and non-tender PALPATION: Yes Soft to palpation OTHER: No focal TTP. NO guarding rebound, guarding, rigidity. No CVA tenderness to percussion. Neg Hugo/Neg McBurney's point tenderness, no suprabupic tenderness to palpation. +L pleurvac exit site dry/clean/intact Extremity: COMMON NORMALS: full ROM Neuro: SENSORIUM/ORIENTATION: Yes alert MOTOR EXAM: No Abnormal motor strength present and Other motor observations present (no focal motor deficits) Psych: COMMON NORMALS: speech normal SPEECH: Yes normal speech MOOD & AFFECT: Yes euthymic mood Procedures Central Line Placement Right Femoral: Time Out Performed: Yes Patient Placed on Monitor/Pulse Ox: Yes MD Prep: mask, gown and gloves Central Line Prep: Povidone-Iodine 1% and sterile drapes applied Local Anesthetic: lidocaine 1% and with epi Amount of anesthesia used (mL): 5 Ultrasound Used for Placement: Yes Central Line Lumen Inserted: triple Post Procedure: sutured in place, good blood return, all ports aspirated, flushed, capped and sterile dressing applied Patient Tolerated Procedure: well Complications: none Course Vital Signs: Vital signs: Vital Signs Temperature 96.5 F L 07/22/22 16:50 Pulse Rate 106 H 07/22/22 19:01 Respiratory Rate 18 07/22/22 19:01 Blood Pressure 74/50 07/22/22 19:01 Pulse Oximetry 95 07/22/22 19:01 Oxygen Delivery Me thod 07/22/22 19:01 Oxygen Flow Rate 10 07/22/22 19:01 MDM - General Adult Medical Decision Making Patient is a 66-year-old female with a history of asthma, COPD, smoking, stage IV metastatic lung cancer not currently on chemotherapy presenting to the emergency room with for concerns of respiratory distress worsening x 1 week. Patient is noted to be satting at greater 95% on 2 L of nasal cannula. Patient is noted have coarse breath sounds bilaterally with decreased breath on the left side. Initially, patient had was noted to be hypotensive to 70/30. Patient's blood pressure did not improve with despite IVF. Patient started on norepinephrine drip. Right femoral central line was placed. Repeat blood pressure appears to be improved. X-ray showed complete opacification of the left lung concerning for possible aspiration event. It is unclear how long ago patient aspirated vs whether this is a large pleural effusion. Pending CTA currenlty. Patient received vancomycin, cefepime and clindamycin. Cr of 3.7. Baseline 2.1. ASHLEY CKD discussed extensively that with Dr. Barakat will follow patient. Patient is noted to have elevated troponin likely demand related today. Patient received aspirin Lovenox in the ED. Case was discussed with Dr. Zee who will follow the patient. Disposition: ICU Lab Data : 07/22/22 17:18 07/22/22 17:18 Radiology Impressions Chest X-Ray 07/22/22 16:56 IMPRESSION: Persistent opacification of the left lung. No significant interval change. Laboratory Results WBC 6.0 10^3/uL (4.0-10.0) 07/22/22 17:18 RBC 3.49 10^6/uL (4.1-5.3) L 07/22/22 17:18 Hgb 10.8 g/dL (11.5-15.3) L 07/22/22 17:18 Hct 32.1 % (37.0-47.0) L 07/22/22 17:18 MCV 92.0 fl (81-99) 07/22/22 17:18 MCH 30.9 pg (28.0-34.0) 07/22/22 17:18 MCHC 33.6 g/dL (30.0-36.0) 07/22/22 17:18 RDW 13.9 % (12.1-15.1) 07/22/22 17:18 Plt Count 45 10^3/cmm (130-400) L 07/22/22 17:18 MPV 11.8 fL (7.4-10.4) H 07/22/22 17:18 Neut % (Auto) 64.9 % 07/22/22 17:18 Lymph % (Auto) 21.6 % 07/22/22 17:18 [place] % (Auto) 1.8 % 07/22/22 17:18 Eos % (Auto) 0.2 % 07/22/22 17:18 Baso % (Auto) 0.5 % 07/22/22 17:18 Neut # (Auto) 3.90 10^3/uL (1.8-7.7) 07/22/22 17:18 Lymph # (Auto) 1.3 10^3/uL (0.8-4.8) 07/22/22 17:18 [place] # (Auto) 0.1 10^3/uL (0.2-0.9) L 07/22/22 17:18 Eos # (Auto) 0.0 10^3/uL (0.0-0.8) 07/22/22 17:18 Baso # (Auto) 0.0 10^3/uL (0.0-0.1) 07/22/22 17:18 Nucleated RBC % (auto) 7.3 % 07/22/22 17:18 Nucleated RBCs # 0.4 /100WBC 07/22/22 17:18 Specimen Type Arterial 07/22/22 17:35 Sample Site Not Reportable 07/22/22 17:35 ABG pH 7.45 (7.35-7.45) 07/22/22 17:35 ABG pCO2 49.0 mmHg (35-45) H 07/22/22 17:35 ABG pO2 184.0 mmHg (80.0-100.0) H 07/22/22 17:35 ABG HCO3 33.6 mmol/L (22-26) H 07/22/22 17:35 ABG O2 Saturation 99.8 07/22/22 17:35 ABG Base Excess 8.5 mmol/L (-2.0-2.0) H 07/22/22 17:35 Mihir Test Pos 07/22/22 17:35 A-a O2 Gradient Not Reportable 07/22/22 17:35 Hematocrit 29.4 % (37-47) L 07/22/22 17:35 Hgb O2 Saturation 98.5 % (95-100) 07/22/22 17:35 Carboxyhemoglobin < 1.0 %THgb (0.4-20.1) 07/22/22 17:35 Methemoglobin 0.7 % (0.4-1.5) 07/22/22 17:35 Total Hemoglobin 9.6 g/dL (12-16) L 07/22/22 17:35 Sodium 123.0 mmol/L (131-143) L 07/22/22 17:35 Potassium 3.8 mmol/L (3.5-5.0) 07/22/22 17:35 Glucose 105.0 mg/dL (70-115) 07/22/22 17:35 Ionized Calcium 1.0 mmol/L (1.1-1.4) L 07/22/22 17:35 O2 Delivery Device Nrb 07/22/22 17:35 Insulation Cutter ID Ck 07/22/22 17:35 Sodium 126 mmol/L (136-145) L 07/22/22 17:18 Potassium 4.4 mmol/L (3.5-5.1) 07/22/22 17:18 Chloride 77 mmol/L (98-107) L 07/22/22 17:18 Carbon Dioxide 32 mmol/L (22-29) H 07/22/22 17:18 Anion Gap 21.4 (5-19) H 07/22/22 17:18 BUN 61 mg/dL (8-23) H 07/22/22 17:18 Creatinine 3.9 mg/dL (0.5-0.9) H 07/22/22 17:18 GFR Calculation 11.6 mL/min (90-130) L 07/22/22 17:18 Glucose 110 mg/dL (65-115) 07/22/22 17:18 Calculated Osmolality 280 mOsm/kg (285-295) L 07/22/22 17:18 Lactate 2.2 mmol/L (0.5-2.2) 07/22/22 17:18 Calcium 7.7 mg/dL (8.5-10.5) L 07/22/22 17:18 Troponin T Baseline 531 ng/L (0-10) H* 07/22/22 17:18 NT-Pro-B Natriuret Pep 74147 pg/mL (0-125) H 07/22/22 17:18 TSH 3.04 uIU/mL (0.27-4.20) 07/22/22 17:18 Imaging Data Other Imaging: Radiologist's impression: [facility] [address] XRay Report Signed Patient: Edilma Langston Unit #: [id number] : 1955 Age/Sex: 66 / F ADM Date: 07/22/22 Loc: ER Room/Bed: Attending Dr: Ordering Provider/Ordering MD: Abby Cummings MD Date of Service: 07/22/22 Procedure(s): XR chest 1V portable [id number] Accession Number(s): [id number] Report Number: [id number] PROCEDURE INFORMATION: Exam: XR Chest Exam date and time: 07/22/2022 6:14 PM Age: 66 years old Clinical indication: Dyspnea TECHNIQUE: Imaging protocol: Radiologic exam of the chest. Views: 1 view. COMPARISON: CR (CHEST, ) 07/03/2022 7:47 AM FINDINGS: Tubes, catheters and devices: Right chest port terminates in the distal SVC. Left chest tube is similar in positioning. Lungs: Persistent opacification/whiteout of the left lung, no significant interval change. Right lung is clear. Pleural spaces: No pneumothorax. Heart/Mediastinum: Stable heart size. Bones/joints: Rotator cuff repair anchors noted in both humeral heads. Visualized osseous structures are intact. XR/XR chest 1V portable [id number] IMPRESSION: Persistent opacification of the left lung. No significant interval change. ? Dictated By: Hosea Hernandez DO Signed By: Smetko,Hosea DO Signed Date/Time: 07/22/221912 DD/ 13 Critical Care Time Critical Care Time: Critical Care Time: Yes Total Critical Care Time: 35 Attestation: The high probability of a clinically significant, sudden or life threatening deterioration of the patient's respiratory system(s) required my full and direct attention, intervention and personal management. The critical care time is as shown. This time is in addition to time spent performing any reported procedures but includes the following: [x] Data and vital sign review and interpretation [x] Patient assessment, examination and intervention [x] Documentation [x] Medication orders and management Discharge Plan Discharge Patient Disposition: Admitted As Inpatient Clinical Impression: Aspiration pneumonia, Hypoxemia, Hypotension, Non-ST elevation [place] (NSTEMI), CKD (chronic kidney disease) Condition: Stable Coding Level of Care Code ED Apprentice Plumber for Echo Nicolas Exam Comprehensive
[2022-07-22] MEDS: sodium chloride 0.9% 1,000 ML 999 ML IV ×2 (17:42→20:25)
[2022-07-22 17:46] LABS: ABG PH Result 7.45 (7.35-7.45); Arterial Blood Gas Hematocrit 29.4 % (37-47); Base Excess ABG 8.5 mmol/L (-2.0-2.0); Blood Gas Allen Test Pos; Blood Gas Sample Type Arterial; Carboxyhemoglobin < 1.0 %THgb (0.4-20.1); HCO3 ABG 33.6 mmol/L (22-26); HGB O2 Sat 98.5 % (95-100); Methemoglobin 0.7 % (0.4-1.5); Oxygen Saturation ABG 99.8; Potassium Level - ABG 3.8 mmol/L (3.5-5.0); Total Hemoglobin 9.6 g/dL (12-16)
[2022-07-22 18:05] LABS: Basophils % 0.5 %; Eosinophils % 0.2 %; Hematocrit 32.1 % (37.0-47.0); Hemoglobin 10.8 g/dL (11.5-15.3); Lymphocytes # 1.3 10^3/uL (0.8-4.8); Lymphocytes % 21.6 %; Mean Corpuscular HGB Conc 33.6 g/dL (30.0-36.0); Mean Corpuscular Hemoglobin 30.9 pg (28.0-34.0); Mean Platelet Volume 11.8 fL (7.4-10.4); Monocytes # 0.1 10^3/uL (0.2-0.9); Monocytes % 1.8 %; Neutrophils % 64.9 %; Nucleated Red Blood Cells # 0.4 /100WBC; Nucleated Red Blood Cells % 7.3 %; Platelet Count 45 10^3/cmm (130-400); Red Blood Count 3.49 10^6/uL (4.1-5.3); Red Cell Distribution Width 13.9 % (12.1-15.1)
[2022-07-22] MEDS: cefepime 1,000 MG in sodium chloride 0.9% (plus) 50 ML 100 MG IV (18:06)
[2022-07-22 18:08] LABS: Blood Gas Operator Identificat CK; Oxygen Device NRB
[2022-07-22 18:15] LABS: Lactate (Lactic Acid level) 2.2 mmol/L (0.5-2.2)
[2022-07-22 18:34] LABS: Troponin(5th) Baseline 531 ng/L (0-10)
[2022-07-22 18:40] LABS: Anion Gap 21.4 (5-19); Blood Urea Nitrogen 61 mg/dL (8-23); Calcium 7.7 mg/dL (8.5-10.5); Carbon Dioxide 32 mmol/L (22-29); Chloride 77 mmol/L (98-107); Glomerular Filtration Rate 11.6 mL/min (90-130); Glucose 110 mg/dL (65-115); NT Pro B Type Natriuretic Pept 25154 pg/mL (0-125); Osmolality Calculated 280 mOsm/kg (285-295); Potassium 4.4 mmol/L (3.5-5.1); Sodium 126 mmol/L (136-145)
[2022-07-22 18:45] LABS: Slide Review Slide Review Perform
[2022-07-22 19:02] LABS: Thyroid Stimulating Hormone 3.04 uIU/mL (0.27-4.20)
--- NOTE | 2022-07-22 19:11 | PM.CONSULT ---
Providers/Reason For Consult Consulting Physician/Specialty*: crys edmondson md / telenephrology Reason for Consult*: ASHLEY, hyponatremia Requesting Physician: Dr Cummings and Dr Zee Primary Care Provider: Tri Ludwig NP History of Present Illness History of Present Illness Edilma aLngston is a 66 year old female with a history of COPD, obesity, large left pleural effusion, recent dx of metastatic small cell ca. Recent antibiotics including levaquin and augmentin, along with IV steroids.? Recent COVID-19 PNA, s/p remdesivir as well as dexamethasone. Patient underwent PET/CT on 07/05/[address] [facility]-which showed extensive tumor involvement in the left lung/left pleura, mediastinum, liver, adrenal glands and bone.? There is single right lung upper lobe nodular density consistent with a second primary versus metastatic lesion.? Right breast nodular density versus right axillary location consistent with tumor involvement.? No lytic lesions. ? Pt here w/ confusion, hypotension, weakness, SOB. In ER dx w/ ASHLEY, hypochloremic met alkalosis, hyponatremia and ASHLEY. Baseline cr is 0.7 mg/dl. on 07/20 cr 2.4, today cr 3.9 and renal called to consult. Review of Systems Narrative: weak, chills, poor appetite, drinking water, not eating well, sob, confusion, dec uop, + ankle edema. no abd pain, +CP rest of ROS reviewed and negative Medications/Allergies Home Medications Medication Instructions Recorded Confirmed Last Taken Type omeprazole 40 mg capsule,delayed 40 mg PO DAILY 8 weeks #60 caps 05/14/22 07/22/22 07/22/22 Rx release ezetimibe 10 mg tablet (Zetia) 10 mg PO DAILY 05/30/22 07/22/22 07/22/22 History rosuvastatin 40 mg tablet 40 mg PO BEDTIME 05/30/22 07/22/22 07/21/22 History docusate sodium 100 mg capsule 100 mg PO DAILY 06/10/22 07/22/22 07/22/22 History levalbuterol HCl 0.63 mg/3 mL 0.63 mg (3 mL) inhalation TID PRN 06/10/22 07/22/22 06/21/22 Rx solution for nebulization shortness of breath or wheezing 30 days #270 mL cholecalciferol (vitamin D3) 1,250 50,000 unit PO Q7D 06/28/22 07/22/22 07/22/22 History mcg (50,000 unit) capsule levalbuterol tartrate 45 2 puff inhalation Q6H PRN 06/28/22 07/22/22 Unknown History mcg/actuation aerosol inhaler Shortness Of Breath ascorbic acid (vitamin C) 500 mg 500 mg PO DAILY #14 tabs 07/04/22 07/22/22 07/22/22 Rx tablet (Vitamin C) ferrous gluconate 324 mg (37.5 mg 324 mg PO BIDWM #60 tabs 07/04/22 07/22/22 07/22/22 Rx iron) tablet furosemide 20 mg tablet (Lasix) 20 mg PO DAILY 30 days #30 tabs 07/04/22 07/22/22 07/22/22 Rx ipratropium bromide 0.02 % 1.25 ml inhalation Q8H #75 mL 07/04/22 07/22/22 07/22/22 Rx solution for inhalation zinc gluconate 50 mg tablet 50 mg PO DAILY #14 tabs 07/04/22 07/22/22 07/22/22 Rx budesonide 0.5 mg/2 mL suspension 0.25 mg inhalation Q12H #60 mL 07/19/22 07/22/22 07/22/22 Rx for nebulization (Pulmicort) Rolator With Seat 07/22/22 07/22/22 Unknown History Allergies Allergy/AdvReac Type Severity Reaction Status Date / Time celecoxib [From Celebrex] Allergy Intermediate ALGY-Rash Verified 07/22/22 17:58 Sulfa (Sulfonamide Allergy Intermediate ALGY-Rash Verified 07/22/22 17:58 Antibiotics) Current Medications Generic Name Dose Route Start Last Admin Trade Name Freq PRN Reason Stop Dose Admin Norepinephrine Bitartrate 4 mg 254 mls @ 0 mls/hr 07/22/22 17:15 07/22/22 19:03 / Dextrose IV 16 mcg/min .Q0M LEÓN 60.96 mls/hr Titration Protocol Per Protocol PFSH Acute PFSH: Medical History Anxiety Arthritis of both knees Asthma CAD (coronary artery disease) COPD (chronic obstructive pulmonary disease) Depressed Enrolled in chronic care management GERD (gastroesophageal reflux disease) History of MRSA infection History of vitamin D deficiency HLD (hyperlipidemia) Insomnia Mixed hyperlipidemia Shoulder pain Small cell lung cancer Smoking addiction Visit for suture removal Surgical History H/O lumpectomy History of bilateral tubal ligation History of D&C History of knee surgery Hx of cholecystectomy Hx of tonsillectomy Family History Father CAD (coronary artery disease) [place] (mitral incompetence) COPD (chronic obstructive pulmonary disease) Lung disease Mother Cancer Lung disease Other Diabetes Hyperlipidemia Denies family history of Clotting disorder Dementia Psychiatric illness Chronic kidney disease (CKD) Suicide Anesthesia complication Bleeding disorder Hypertension Stroke Social History Smoking and tobacco status: never smoked Quit status (tobacco): has quit using tobacco Year quit tobacco: 2021 Former quit date comment: 1-2ppd x 49 years Alcohol intake: never Lives independently: Yes Household members: spouse Marital status: Vitals/I&O/Wt Last Vital Signs Temp 96.5 F L 07/22/22 16:50 Pulse 106 H 07/22/22 19:01 Resp 18 07/22/22 19:01 BP 74/50 07/22/22 19:01 Pulse Ox 95 07/22/22 19:01 O2 Del Method 07/22/22 19:01 O2 Flow Rate 10 07/22/22 19:01 07/22/22 07/22/22 07/22/22 06:59 14:59 22:59 Intake Total 45.593 / 45.593 Balance 45.593 / 45.593 Physical Exam Narrative: obese, hypotensive in bed, confused, hypothermic, SOB on FM 02 heent- nc/at neck supple lung- left poor air movement, + wheezing heart- reg, tachy abd soft, nt, nd, + bs ext 1+ b/l ankle edema neuro- a,a, o x 1-2 Data : 07/22/22 17:18 07/22/22 17:18 Micro: Microbiology 07/22/22 17:39 Blood Culture - Preliminary Blood SPECIMEN COLLECTED 07/22/22 17:35 Blood Culture - Preliminary Blood SPECIMEN COLLECTED A&P Assessment and plan (1) ASHLEY (acute kidney injury): 66 yr old female met lung ca and pleural effusion 1. ASHLEY-likely prerenal vs ATN from sepsis baseline cr 0.7, cr 2.4 on 07/20 and 3.9 on 07/22/22 -check u/a, ur lytes, ur eos -concern for AIN -recent abx -Q TTP/ HIS- as AMS, ASHLEY, anemia and thrombocytopenia- check ldh, retic, haptoglobin -review smear for possible schistocytes -check ck -check uric acid, ca, phos for possible TLC -check renal us- r/o obstruction -give ivf 2, hyponatremia- check ur lytes -check am cortisol level- as recent steroids- assess for possible adrenal insufficiency -normal tsh -monitor w/ ns ivf 3 high bnp- check echo -can be from pleural effusion 4. hypotension and pleural effusion- check echo for possible pericardial effusion and tamponade 5. anemia and thrombocytopenia- as above -also can be from cancer and/ or meds 6. hypochloremic met alkalosis- d/c diuretics -give ivf 7. swpsis eval and pleural effusion per pulmonary and critical care seen and examined w/ RN - telehealth visit informed consent for Telehealth obtained time spent > 50 min Status: Acute Plan see above Consult Attestations Medical Necessity Statement: sepsis, hypotension, Met ca, ams, ashley, hyponatremia, met alklaosis Time Spent in Patient Care: Greater than 35 minutes (>than 50% of time spent in counselling and/or direct pt care on unit). Coding Level of Care Code Acute Textile Artist for Echo Nicolas Diagnoses ASHLEY (acute kidney injury) N17.9
[2022-07-22] MEDS: vancomycin 1,000 MG in sodium chloride 0.9% 250 ML 250 MG IV (19:22)
[2022-07-22 19:34] LABS: Troponin 5 2HR Delta -0.2 ABS# (0-10)
[2022-07-22] MEDS: morphine 4 mg/mL SDV 1 mL 2 MG IVP (19:34)
[2022-07-22 19:35] LABS: Troponin 5 2HR 530.8 ng/L (0-10)
[2022-07-22 19:35] LABS: INR 1.16 (0.8-1.2)
--- NOTE | 2022-07-22 19:35 | USR_ITS ---
PROCEDURE INFORMATION: Exam: US Retroperitoneal; Complete; Kidneys and Bladder Exam date and time: 07/22/2022 8:50 PM Age: 66 years old Clinical indication: Other: Acute kidney injury. End-stage lung CA; Patient HX: End stage lung CA; Additional info: Ward TECHNIQUE: Imaging protocol: Real-time ultrasound of the retroperitoneum with image documentation. Complete exam focused on the kidneys and bladder. COMPARISON: [place] [id number] 07/22/2022 8:29 PM FINDINGS: Right kidney: Right kidney measures 8.5 cm in length. No stones. No hydronephrosis. Left kidney: Left kidney measures 7.6 cm in length. No stones. No hydronephrosis. Urinary bladder: Unremarkable. US/US renal BI with PV bladder IMPRESSION: No hydronephrosis.
--- NOTE | 2022-07-22 19:35 | CTR_ITS ---
PROCEDURE INFORMATION: Exam: CT Chest Without Contrast; Diagnostic Exam date and time: 07/22/2022 7:58 PM Age: 66 years old Clinical indication: Shortness of breath; Prior surgery; Surgery type: Lumpectomy. Gb. Patient HX: Worsening SOB with hypoxia. History of small cell lung and hepatic cancer. ; Additional info: Effusion, SOB TECHNIQUE: Imaging protocol: Diagnostic computed tomography of the chest without contrast. Radiation optimization: All CT scans at this facility use at least one of these dose optimization techniques: automated exposure control; mA and/or kV adjustment per patient size (includes targeted exams where dose is matched to clinical indication); or iterative reconstruction. COMPARISON: CT chest wo con [id number] 06/28/2022 8:56 PM RADIATION DOSE METRICS: Total DLP (mGy-cm): 596.49 FINDINGS: Tubes, catheters and devices: Right chest port terminates in the distal SVC. Lungs: Collapse of the majority of the left lung. There are some residual areas of aeration in the left lung apex and most notably at the left lung base. Irregular interlobular septal thickening in the residual aerated left lung suggestive of lymphangitic carcinomatosis. Several contralateral metastatic lesions in the right lung measuring up to 2 cm at the right lung apex. Pleural spaces: Diffusely irregular lobulated thickening of the pleura surrounding the left lung. A chest tube is in place terminating along the posterior left lung base. Trace right pleural effusion. No pneumothorax. Heart: Minor coronary artery calcifications. No cardiomegaly. Trace pericardial fluid. Lymph nodes: Irregular enlargement of mediastinal lymph nodes the largest rounded prevascular node measures 1.5 cm in short axis. There also several irregular enlarged pericardial lymph nodes measuring up to 2 cm in short axis. Markedly enlarged abnormal right axillary lymph node measuring 2 cm in short axis. Enlarged hepatogastric lymph nodes measuring up to 1.7 cm in short axis. Vasculature: No aortic aneurysm. Liver: Cirrhotic liver. Adrenal glands: Abnormal lobulated thickening of the adrenal glands suspicious for metastasis. Bones/joints: No acute fracture. No aggressive osseous lesion. Soft tissues: Unremarkable. CT/CT chest wo con [id number] IMPRESSION: 1. The following impression points have all worsened/progressed within a short interval from most recent comparison. 2. Diffusely irregular lobulated left pleural thickening consistent with metastatic disease, with collapse of the majority of the left lung. 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 Several contralateral metastatic lesions seen in the right lung measuring up to 2 cm at the right lung apex. 3. Metastatic mediastinal, right axillary, hepatogastric, and pericardial lymph nodes. 4. Abnormal lobulated appearance of the adrenal glands suspicious for metastasis.
[2022-07-22] MEDS: enoxaparin 80 mg/0.8 mL Syringe 70 MG SUBCUT (19:37)
[2022-07-22] MEDS: aspirin 325 mg Tablet PO (19:39)
--- NOTE | 2022-07-22 19:41 | P.HP_ITS ---
Providers/Chief Complaint Primary Care Provider: Tri Ludwig NP Chief Complaint: lung cancer History of Present Illness Edilma Langston is a 66 year old female with a past medical history COPD, chronic smoker, asthma, obesity, history of COVID-19, history of recurrent left pleural effusion status post Pleurx catheter, history of malignant pleural effusion, history of recently diagnosed small cell lung cancer of the left lung and pleur a, mediastinum, liver, adrenal glands, bone, patient also has a right upper lobe nodular density consistent with second primary versus metastatic lesion, right breast nodular density versus right axillary location, history of systolic CHF, history of acute on chronic respiratory failure, who presents [facility] due to increasing relief fatigue, weakness, shortness of breath, cough, dizziness and low blood pressures. Patient currently is on 10 L, MAP more than 65, currently on 15 of Levophed, receiving antibiotics, she is tachycardic heart rates low 100s, respiratory rate 20, she is alert oriented x3, following all commands, her family is at bedside. Patient tells me that for the last few days she has not been able to walk, she has been more fatigued, she is been bedbound, she has been increasingly short of breath, has had a productive cough, poor appetite, no chest pain, no nausea, no vomiting, no fevers, no episodes of aspiration, she does tell me that she has her back pain. Today her family tells me that her appetite was significantly poor, she was bedbound, complaining of increasing shortness of breath, and dizziness. When they rechecked up on her this afternoon checked her blood pressure it was very low so they brought her to the emergency room evaluation. Here patient is in multiorgan failure with septic shock and acute hypoxic respiratory failure, source is likely pulmonary, pneumonia, she also has NSTEMI, with significant concerns for pulmonary embolism . Review of Systems Const: Reports: chills, fatigue and malaise; Denies: fever(s) Eyes: Denies: change in vision ENMT: Reports: throat pain Card: Denies: chest pain Resp: Reports: dyspnea and non-productive cough GI: Denies: abdominal pain : Denies: flank pain or difficulty voiding Musc: Reports: back pain Neuro: Reports: dizziness; Denies: headache(s) or numbness in extremities Medications/Allergies Home Medications Medication Instructions Recorded Confirmed Last Taken Type omeprazole 40 mg capsule,delayed 40 mg PO DAILY 8 weeks #60 caps 05/14/22 07/22/22 07/22/22 Rx release ezetimibe 10 mg tablet (Zetia) 10 mg PO DAILY 05/30/22 07/22/22 07/22/22 History rosuvastatin 40 mg tablet 40 mg PO BEDTIME 05/30/22 07/22/22 07/21/22 History docusate sodium 100 mg capsule 100 mg PO DAILY 06/10/22 07/22/22 07/22/22 History levalbuterol HCl 0.63 mg/3 mL 0.63 mg (3 mL) inhalation TID PRN 06/10/22 07/22/22 06/21/22 Rx solution for nebulization shortness of breath or wheezing 30 days #270 mL cholecalciferol (vitamin D3) 1,250 50,000 unit PO Q7D 06/28/22 07/22/22 07/22/22 History mcg (50,000 unit) capsule levalbuterol tartrate 45 2 puff inhalation Q6H PRN 06/28/22 07/22/22 Unknown History mcg/actuation aerosol inhaler Shortness Of Breath ascorbic acid (vitamin C) 500 mg 500 mg PO DAILY #14 tabs 07/04/22 07/22/22 07/22/22 Rx tablet (Vitamin C) ferrous gluconate 324 mg (37.5 mg 324 mg PO BIDWM #60 tabs 07/04/22 07/22/22 07/22/22 Rx iron) tablet furosemide 20 mg tablet (Lasix) 20 mg PO DAILY 30 days #30 tabs 07/04/22 07/22/22 07/22/22 Rx ipratropium bromide 0.02 % 1.25 ml inhalation Q8H #75 mL 07/04/22 07/22/22 07/22/22 Rx solution for inhalation zinc gluconate 50 mg tablet 50 mg PO DAILY #14 tabs 07/04/22 07/22/22 07/22/22 Rx budesonide 0.5 mg/2 mL suspension 0.25 mg inhalation Q12H #60 mL 07/19/22 07/22/22 07/22/22 Rx for nebulization (Pulmicort) Rolator With Seat 07/22/22 07/22/22 Unknown History Allergies Allergy/AdvReac Type Severity Reaction Status Date / Time celecoxib [From Celebrex] Allergy Intermediate ALGY-Rash Verified 07/22/22 17:58 Sulfa (Sulfonamide Allergy Intermediate ALGY-Rash Verified 07/22/22 17:58 Antibiotics) PFSH Acute PFSH: Medical History Anxiety Arthritis of both knees Asthma CAD (coronary artery disease) COPD (chronic obstructive pulmonary disease) Depressed Enrolled in chronic care management GERD (gastroesophageal reflux disease) History of MRSA infection History of vitamin D deficiency HLD (hyperlipidemia) Insomnia Mixed hyperlipidemia Shoulder pain Small cell lung cancer Smoking addiction Visit for suture removal Surgical History H/O lumpectomy History of bilateral tubal ligation History of D&C History of knee surgery Hx of cholecystectomy Hx of tonsillectomy Family History Father CAD (coronary artery disease) IL (mitral incompetence) COPD (chronic obstructive pulmonary disease) Lung disease Mother Cancer Lung disease Other Diabetes Hyperlipidemia Denies family history of Clotting disorder Dementia Psychiatric illness Chronic kidney disease (CKD) Suicide Anesthesia complication Bleeding disorder Hypertension Stroke Social History Smoking and tobacco status: never smoked Quit status (tobacco): has quit using tobacco Year quit tobacco: 2021 Former quit date comment: 1-2ppd x 49 years Alcohol intake: never Lives independently: Yes Household members: spouse Marital status: Vitals/I&O/Wt Last Vital Signs Temp 96.5 F L 07/22/22 16:50 Pulse 109 H 07/22/22 19:25 Resp 24 H 07/22/22 19:25 BP 97/57 07/22/22 19:25 Pulse Ox 94 07/22/22 19:25 O2 Del Method 07/22/22 19:01 O2 Flow Rate 10 07/22/22 19:01 07/22/22 07/22/22 07/22/22 06:59 14:59 22:59 Intake Total 65.913 / 65.913 Balance 65.913 / 65.913 Physical Exam Const: COMMON NORMALS: no acute distress and patient oriented x3 HENMT: COMMON NORMALS: normocephalic HEAD & SCALP: normocephalic Eye: COMMON NORMALS: Equal, round and reactive pupils present and EOMs intact bilaterally Neck/C-Spine: COMMON NORMALS: no JVD Lymph: LYMPHATIC: no lymphadenopathy noted Resp: COMMON NORMALS: normal respiratory effort, No retractions, No use of accessory muscles and clear to auscultation bilaterally AUSCULTATION: wheezes Cardio: COMMON NORMALS: no JVD, S1 normal heart sound present and S2 normal heart sound present RATE: tachycardic RHYTHM: regular rhythm HEART SOUNDS: S1 normal heart sound present and S2 normal heart sound present GI: COMMON NORMALS: Normal to inspection, nondistended, normoactive bowel sounds present, Soft to palpation, non-tender, No hepatosplenomegaly present, no masses and no bruits PALPATION: Yes Soft to palpation and Yes No hepatosplenomegaly present Extremity: COMMON NORMALS: capillary refill normal, no clubbing, cyanosis or edema, no calf tenderness and no pedal edema Neuro: COMMON NORMALS: patient oriented x3, CN's II-XII intact bilaterally, moves all extremities and no focal motor deficits Psych: COMMON NORMALS: mental status grossly normal Data : 07/22/22 17:18 07/22/22 17:18 Micro: Microbiology 07/22/22 17:39 Blood Culture - Preliminary Blood SPECIMEN COLLECTED 07/22/22 17:35 Blood Culture - Preliminary Blood SPECIMEN COLLECTED A&P Assessment and plan (1) ASHLEY (acute kidney injury): Status: Acute (2) Non-ST elevation IL (NSTEMI): Status: Acute (3) CKD (chronic kidney disease): Status: Acute (4) Acute and chronic respiratory failure with hypoxia: Status: Acute (5) Small cell lung cancer: Status: Acute (6) Body mass index (BMI) of 40.1 to 44.9 in adult: Status: Acute (7) COPD (chronic obstructive pulmonary disease): Status: Acute (8) Mixed hyperlipidemia: Status: Acute (9) Thrombocytopenia: Status: Acute (10) Hyponatremia: Status: Acute Plan Acute hypoxic respiratory failure -Secondary to pneumonia -Secondary to recurrent left pleural effusion, malignant -Secondary to small cell lung cancer with metastasis -Possible pulmonary embolism - systolic CHF exacerbation Plan -Admit to ICU -Monitor respiratory status closely -BiPAP overnight -Continue Levophed to maintain MAP more than 65, has a family place -Broad-spectrum antibiotic therapy, vancomycin, Zosyn -Patient's sputum cultures during her last hospitalization showed stretomonas, which was martin resistant, patient has an allergy to sulfa, resistant to Levaquin -Sputum culture showed Kika, start fluconazole -Will follow sputum cultures, blood cultures, urine culture, obtain pleural cultures -DuoNeb treatments -Budesonide -Continue therapeutic Lovenox, monitor platelet count -Lasix 40 mg IV push every 24 hours, monitor urine output, monitor hemodynamics, will titrate based on clinical progress --full code -Lovenox for DVT prophylaxis Septic shock -Likely secondary to pneumonia -Continue Levophed, wean him off in the 66 Recurrent pleural effusion, cardiac echo, CT chest, pleural studies, pulmonary has been consulted Small cell lung cancer, with metastasis NSTEMI -Likely supply demand ischemia however cannot rule out underlying cardiac etiology -Serial EKGs serial troponins, telemetry monitoring -Cannot do a CT angiogram given elevated creatinine, will do venous ultrasound, has received therapeutic Lovenox Systolic CHF, elevated BNP, cardiac echo, Lasix Hyponatremia, likely secondary to the component of adrenal insufficiency, CHF, sepsis, monitor, nephrology has been consulted Status is critical Prognosis is guarded Family made aware of patient's critical status Attestations Medical Necessity Statement*: Patient requires hospital inpatient, greater than 2 minutes, for septic shock, pneumonia, NSTEMI Coding Level of Care Code Acute Putty Glazer for Chg Fwd Exam Comprehensive Diagnoses ASHLEY (acute kidney injury) N17.9 Non-ST elevation IL (NSTEMI) I21.4 CKD (chronic kidney disease) N18.9 Acute and chronic respiratory failure with hypoxia J96.21 Small cell lung cancer C34.90 Body mass index (BMI) of 40.1 to 44.9 in adult Z68.41 COPD (chronic obstructive pulmonary disease) J44.9 Mixed hyperlipidemia E78.2 Thrombocytopenia D69.6 Hyponatremia E87.1 Sepsis Evaluation Sepsis screening result: No Definite Risk Current stage of sepsis: severe sepsis Reason for ruling out sepsis: correction patientis in septic shock Initial hypotension due to sepsis/infection: SBP < 90 mmHg Possible source: pulmonary Focused Exam Vital Signs Temp Pulse Resp BP Pulse Ox O2 Del Method O2 Flow Rate 07/22/22 19:34 24 H 07/22/22 19:25 109 H 24 H 97/57 94 07/22/22 19:01 106 H 18 74/50 95 Simple Mask 10 07/22/22 18:51 105 H 20 H 78/49 95 07/22/22 18:21 105 H 19 H 93/49 96 Simple Mask 10 07/22/22 17:51 101 H 28 H 102/63 100 Non-Rebreather 15 07/22/22 16:50 96.5 F L 98 29 H 89/32 100 Non-Rebreather 15 Respiratory exam: Present wheezes Cardiovascular exam: Present tachycardia Peripheral pulse strength: 1+ Faint Peripheral pulse location: Pedal Skin exam: mottling Date exam was performed: 07/22/22 Time exam was performed: 20:35
--- NOTE | 2022-07-22 19:49 | USR_ITS ---
PROCEDURE INFORMATION: Exam: US Duplex Lower Extremity Veins, Bilateral Exam date and time: 07/22/2022 8:29 PM Age: 66 years old Clinical indication: Other: Assess for dvt; Patient HX: End stage lung CA TECHNIQUE: Imaging protocol: Real-time Duplex ultrasound of the bilateral extremities with 2-D lopez scale, color Doppler flow and spectral waveform analysis with image documentation. Complete exam focused on the bilateral lower extremity veins. COMPARISON: No relevant prior studies available. FINDINGS: Right deep veins: Unremarkable. The common femoral, femoral, proximal profunda femoral and popliteal veins are patent without thrombus. Normal Doppler waveforms. Normal compressibility and/or augmentation response. Right superficial veins: Saphenofemoral junction is patent without thrombus. Left deep veins: Unremarkable. The common femoral, femoral, proximal profunda femoral and popliteal veins are patent without thrombus. Normal Doppler waveforms. Normal compressibility and/or augmentation response. Left superficial veins: Saphenofemoral junction is patent without thrombus. Soft tissues: Unremarkable. US/CV venous duplex [facility] [id number] IMPRESSION: No evidence of deep vein thrombosis.
[2022-07-22 19:51] LABS: C Reactive Protein 89.1 mg/L (0.0-4.9); Magnesium 2.4 mg/dL (1.7-2.3); Phosphorus 6.9 mg/dL (2.5-4.5)
[2022-07-22 19:56] LABS: Reticulocyte % 1.2 % (0.5-2.0)
[2022-07-22 20:05] LABS: Erythrocyte Sedimentation Rate 33 mm/hr (0-15)
[2022-07-22 20:14] LABS: Phosphorus 6.8 mg/dL (2.5-4.5); Uric Acid 15.3 mg/dL (2.4-5.7)
[2022-07-22 20:31] LABS: Adenovirus Not Detected (NOT DETECT); Chlamydia Pneumoniae Not Detected (NOT DETECT); Coronavirus 229E,HKU1,NL63,OC4 Not Detected (NOT DETECT); Human Metapneumovirus Not Detected (NOT DETECT); Human Rhinovirus/Enterovirus Not Detected (NOT DETECT); Influenza A Not Detected (NOT DETECT); Influenza A H1 Not Detected (NOT DETECT); Influenza A H1-2009 Not Detected (NOT DETECT); Influenza A H3 Not Detected (NOT DETECT); Influenza B Not Detected (NOT DETECT); Mycoplasma Pneumoniae Not Detected (NOT DETECT); Parainfluenza Virus Type 1 Not Detected (NOT DETECT); Parainfluenza Virus Type 2 Not Detected (NOT DETECT); Parainfluenza Virus Type 3 Not Detected (NOT DETECT); Parainfluenza Virus Type 4 Not Detected (NOT DETECT); Respiratory Syncytial Virus A Not Detected (NOT DETECT); Respiratory Syncytial Virus B Not Detected (NOT DETECT); SARS-COV-2 Not Detected (NOT DETECT)
[2022-07-22] MEDS: clindamycin 600 MG/50 ML PREMIX 100 MG IV (20:31)
[2022-07-22 20:34] LABS: Creatine Phosphokinase 720 U/L (26-192)
[2022-07-22] MEDS: sodium chloride 0.9% 1,000 ML 150 ML IV (21:01)
[2022-07-22] MEDS: morphine 4 mg/mL SDV 1 mL 1 MG IVP (21:36)
--- NOTE | 2022-07-22 22:43 | PC.PHAR ---
Vancomycin is dosed at 1000mg IVPB every 48 hours to produce a predicted trough level of 19.76 (population based pharmacokinetic analysis). A trough level has been ordered from the lab to be obtained before the fourth dose to confirm and adjust if needed.
--- NOTE | 2022-07-22 22:57 | ECG_ITS ---
[facility] Test Date: 2022-07-22 Pat Name: Edilma Langston Department: Room: ICU05 Gender: Female Title Search Manager: : 1955 Requested By: Abby Cummings Order Number: [id number] Todd MD: Alirio Gallo M.D. Measurements Intervals [place] Rate: 110 P: 52 TX: 130 QRS: -69 QRSD: 136 T: 79 QT: 366 QTc: 496 Interpretive Statements SINUS TACHYCARDIA INDETERMINATE AXIS RIGHT BUNDLE BRANCH BLOCK [120+ ms QRS DURATION, UPRIGHT V1, 40+ ms S IN I/aVL/V4/V5/V6] LEFT ANTERIOR FASCICULAR BLOCK [QRS AXIS <= -45, QR IN I, RS IN II] POSSIBLE SEPTAL MYOCARDIAL INFARCTION , OF INDETERMINATE AGE [30 ms Q WAVE IN V1/V2] Compared to ECG 07/22/2022 17:27:44 Indeterminate axis now present Left anterior fascicular block now present Sinus rhythm no longer present Left-axis deviation no longer present Myocardial infarct finding still present Electronically Signed On 07-23-2022 0:19:24 CDT by Alirio Gallo M.D. [id number]
[2022-07-22] MEDS: FUROsemide 10 mg/mL SDV 4mL 40 MG IVP (22:58)
[2022-07-22] MEDS: fluconazole premix 200 MG/100 ML PREMIX 100 MG IV (22:58)
[2022-07-23] VITALS (98 sets, daily range): BP systolic 81–125; BP diastolic 45–88; PULSE 94–109; RESP 9–34; TEMP 36.2–36.8; O2SAT 85–100
[2022-07-23 00:10] LABS: Troponin 5 6HR Delta -18.2 ng/L (0-12)
[2022-07-23 00:11] LABS: Troponin 5 6HR 512.8 ng/L (0-10)
[2022-07-23 00:13] LABS: Free T4 Free Thyroxine 0.33 ng/dL (0.82-1.77)
[2022-07-23 00:13] LABS: Hepatitis C Virus Antibody Non-Reactive (Nonreactive)
[2022-07-23 00:17] LABS: Potassium, Radom Urine 29 mmol/L; Urine Random Chloride 37 mmol/L; Urine Random Sodium 26 mmol/L
[2022-07-23] MEDS: piperacillin-tazobactam 3.375 GM in sodium chloride 0.9% (plus) 50 ML IV ×2 (00:23→12:18)
[2022-07-23 00:25] LABS: Urine Appearance Hazy (CLEAR); Urine Color Amber (Yellow)
[2022-07-23 00:26] LABS: Bilirubin Urine 1+ (Negative); Blood Urine 3+ (Negative); Glucose Urine UA Norm (Normal); Ketones Urine Negative (Negative); Leukocyte Esterase Urine Trace (Negative); Nitrate Urine Positive (Negative); Protein Urine 1+ (Negative); Urobilinogen Urine 1 mg/dL (Negative); pH Urine 5 (5-7)
[2022-07-23 00:28] LABS: Bacteria Urine 4+ /hpf; WBC Urine 0-4 /hpf (0-5)
[2022-07-23 00:29] LABS: Add Urine Culture? Yes
[2022-07-23 00:33] LABS: Cortisol Random 94.85 ug/dL (2.47-19.5)
[2022-07-23] MEDS: norepinephrine 8 MG in dextrose 5 % 500 ML 76.2 MG IV (02:14)
[2022-07-23] MEDS: sodium chloride 0.9% 1,000 ML 150 ML IV (03:38)
[2022-07-23 04:15] LABS: Basophils # 0.1 10^3/uL (0.0-0.1); Basophils % 0.8 %; Eosinophils % 0.1 %; Hematocrit 31.8 % (37.0-47.0); Hemoglobin 10.2 g/dL (11.5-15.3); Lymphocytes # 1.6 10^3/uL (0.8-4.8); Lymphocytes % 21.4 %; Mean Corpuscular HGB Conc 32.1 g/dL (30.0-36.0); Mean Corpuscular Hemoglobin 30.4 pg (28.0-34.0); Mean Corpuscular Volume 94.9 fl (81-99); Monocytes # 0.2 10^3/uL (0.2-0.9); Monocytes % 2.5 %; Neutrophils # 5.05 10^3/uL (1.8-7.7); Neutrophils % 65.9 %; Nucleated Red Blood Cells # 0.4 /100WBC; Nucleated Red Blood Cells % 5.4 %; Platelet Count 51 10^3/cmm (130-400); Red Blood Count 3.35 10^6/uL (4.1-5.3); Red Cell Distribution Width 14.1 % (12.1-15.1); White Blood Count 7.7 10^3/uL (4.0-10.0)
[2022-07-23 04:36] LABS: Lactic Sepsis W/Reflex 1.8 mmol/L (0.5-2.2)
[2022-07-23 04:42] LABS: Alanine Aminotransferase 300 U/L (0-33); Albumin Level 1.9 g/dL (3.5-5.2); Anion Gap 20.2 (5-19); Aspartate Amino Transferase 536 U/L (0-32); Blood Urea Nitrogen 56 mg/dL (8-23); Calcium 6.7 mg/dL (8.5-10.5); Carbon Dioxide 24 mmol/L (22-29); Chloride 82 mmol/L (98-107); Globulin 3.1 g/dL (1.3-4.6); Glomerular Filtration Rate 11.6 mL/min (90-130); Glucose 219 mg/dL (65-115); Magnesium 2.3 mg/dL (1.7-2.3); Osmolality Calculated 276 mOsm/kg (285-295); Potassium 4.2 mmol/L (3.5-5.1); Sodium 122 mmol/L (136-145)
[2022-07-23 04:54] LABS: Alkaline Phosphatase 1067 U/L (35-105)
--- NOTE | 2022-07-23 05:10 | CTR_ITS ---
PROCEDURE INFORMATION: Exam: CT Abdomen And Pelvis Without Contrast Exam date and time: 07/23/2022 5:35 AM Age: 66 years old Clinical indication: Abnormal findings; Abnormal lab test; Abnormal kidney function lab tests and elevated liver enzymes; Prior surgery; Surgery type: Gb. Tubal. Lumpectomy. Patient HX: Elevated lfts with alkaline phosphatase over 1000. History of metastatic small cell lung cancer. ; Additional info: Elevted lft, alkphos TECHNIQUE: Imaging protocol: Computed tomography of the abdomen and pelvis without contrast. Radiation optimization: All CT scans at this facility use at least one of these dose optimization techniques: automated exposure control; mA and/or kV adjustment per patient size (includes targeted exams where dose is matched to clinical indication); or iterative reconstruction. COMPARISON: US renal BI with PV bladder 07/22/2022 8:50 PM RADIATION DOSE METRICS: Total DLP (mGy-cm): 892.57 FINDINGS: Tubes, catheters and devices: Partially visualized left-sided chest tubes. Pleural spaces: Left-sided pleural thickening. Small right-sided pleural effusion. Loculated left-sided pleural fluid. Heart: Soft tissue masses/lymphadenopathy in the left pericardiac fat with possible extension into the pericardial space (axial series 3, image 1). Trace left-sided pericardial effusion. Liver: The liver demonstrates a nodular contour, consistent with cirrhosis. Poorly defined/visualized areas of hypoattenuation in the liver Gallbladder and bile ducts: The gallbladder is surgically absent. No significant intra or extrahepatic biliary dilatation within the limitations of this noncontrast exam. Pancreas: The pancreas appears normal. Spleen: The spleen appears normal. Adrenal glands: Significant nodularity/soft tissue enlargement of the adrenal glands. Kidneys and ureters: The kidneys empty into non-dilated ureters. No renal or ureteral stones are identified. No perinephric or periureteral fat tissue stranding is identified. Stomach and bowel: Stomach appears unremarkable. Air-filled duodenal diverticula noted. Short segment of small bowel in the mid abdomen measures up to 3.4 cm in diameter, the remainder of the small bowel is unremarkable with no significant signs of obstruction. The large bowel loops are not abnormally dilated. Appendix: The appendix appears normal. Intraperitoneal space: Trace abdominopelvic ascites. Vasculature: The aorta is nonaneurysmal. The IVC appears normal. Right-sided femoral vascular line with the distal tip in the distal common iliac vein. Lymph nodes: Prominent paraesophageal lymph node measuring up to 1.2 cm in its short axis (axial series 3, image 8). Soft tissue masses/lymph nodes in the upper abdomen adjacent to the gastric cardia. Urinary bladder: Pereira catheter noted within the urinary bladder which is non-distended. Reproductive: Unremarkable as visualized. Bones/joints: Review of the bone windows demonstrates no significant abnormality. Soft tissues: Subcutaneous emphysema overlying the anterior abdominal wall likely consistent with subcutaneous injections. CT/CT abdomen pelvis wo con [id number] IMPRESSION: 1. No significant intra or extrahepatic biliary dilatation within the limitations of this noncontrast exam. 2. Hepatic cirrhosis. Poorly defined/visualized areas of hypoattenuation in the liver, difficult to exclude malignancy. Consider follow-up MRI. 3. Evidence of metastatic disease again noted in the chest. 4. Irregularity of the adrenal glands concerning for metastatic disease. 5. Trace abdominopelvic ascites. COMMENTS: Evaluation of solid organs and vascular structures is limited as no IV contrast was administered.
[2022-07-23 06:00] LABS: Cortisol Random 80.79 ug/dL (2.47-19.5)
[2022-07-23 06:12] LABS: Lactate Dehydrogenase 5265 U/L (135-214)
--- NOTE | 2022-07-23 06:23 | PC.NURSE ---
Patient has rested well most of the night on Bipap. Sp02 in upper 90s on 50% fi02. Patient has remained A0x4 and no reports of pain since transferred to ICU. Map has remained in the mid 60s most of the night and Hospitalist notified. Order for Vasopressin prn received but not administered through the night, bag stored in patient's bin. Urine output has remained low with only 140 out since insertion of catheter. Hospitalist notified.
--- NOTE | 2022-07-23 06:57 | P.PN_ITS ---
Subjective Subjective: uncomfortable, sob on fm o2. minimal uop, on pressors. lethargic. Medications: Reviewed: Yes Medication Review Details: Current Medications Albuterol/Ipratropium (Ipratropium-Albuterol 3 Ml Neb) 3 ml INHALATION QID.RESPIRATORY LEÓN Budesonide (Budesonide 0.5 Mg/2 Ml Neb) 0.5 mg INHALATION BID.RESPIRATORY LEÓN Enoxaparin Sodium (Enoxaparin 100 Mg/Ml Syringe) 83 mg SUBCUT Q24H LEÓN Sodium Chloride (Sodium Chloride 0.9%) 1,000 mls @ 150 mls/hr IV .Q6H40M LEÓN Last Admin: 07/23/22 03:38 Dose: 150 mls/hr Piperacillin Sod/Tazobactam (Sod 3.375 gm/ Sodium Chloride) 50 mls @ 12.5 mls/h r IV Q12H LEÓN; Protocol Last Infusion: 07/23/22 06:31 Dose: Infused Fluconazole (Diflucan Premix) 200 mg in 100 mls @ 100 mls/hr IV Q24H LEÓN Last Infusion: 07/23/22 00:00 Dose: Infused Vancomycin HCl 1,000 mg/ (Sodium Chloride) 250 mls @ 250 mls/hr IV Q48H LEÓN; Protocol Vasopressin 100 unit/ Sodium (Chloride) 100 mls @ 0 mls/hr IV .Q0M LEÓN; Protocol Norepinephrine Bitartrate 8 mg (/ Dextrose) 508 mls @ 0 mls/hr IV .Q0M LEÓN; Protocol Last Admin: 07/23/22 02:14 Dose: 20 mcg/min, 76.2 mls/hr Ondansetron HCl (Ondansetron 2 Mg/Ml Sdv 2 Ml) 4 mg IVP Q8H PRN PRN Reason: vomiting, or N/V if npo Vitals/I&O/Wt Last Vital Signs Temp 97.9 F 07/23/22 06:00 Pulse 105 H 07/23/22 06:15 Resp 21 H 07/23/22 06:15 BP 96/60 07/23/22 06:15 Pulse Ox 91 07/23/22 06:15 O2 Del Method 07/22/22 22:04 O2 Flow Rate 10 07/22/22 22:04 FiO2 40 07/23/22 02:22 07/22/22 07/22/22 07/23/22 14:59 22:59 06:59 Intake Total 254.000 / 306.069 9742.500 / 2650.500 Balance 254.000 / 936.897 1783.500 / 2650.500 Weight last 48 hrs Weight 83.96 kg Physical Exam Narrative: obese, uncomfortable, sob on pressors, confused, FM 02 heent- nc/at neck supple lung- left poor air movement, + wheezing and crackles. dull bases heart- reg, tachy abd soft, nt, nd, + bs ext 1+ b/l ankle edema neuro- lethargic, responsive in bed Urinary Catheter Management: Pereira: Cath Placed During This Visit: yes Reason for Continuing Indwelling Catheter: Accurate Measurement of Urinary Output in Critically Ill Patients Urinary Catheter Date of Insertion: 07/22/22 Urinary Catheter Time of Insertion: 10:30 Data : 07/23/22 03:20 07/23/22 03:20 Micro: Microbiology 07/22/22 17:39 Blood Culture - Preliminary Blood SPECIMEN COLLECTED 07/22/22 17:35 Blood Culture - Preliminary Blood SPECIMEN COLLECTED A&P Assessment and plan (1) ASHLEY (acute kidney injury): 66 yr old female met lung ca and pleural effusion 1. ASHLEY-likely ATN from hypotension baseline cr 0.7, cr 2.4 on 07/20 and 3.9 on 07/22/22 -is oligo-anuric and cr stable -u/a 3+ blood, + nitrites, + 5-10 rbc, 0-4 wbc 4+ ur bacteria- f/u cx -ur na 26, ur cl 37 -concern for AIN -recent abx -Q TTP/ HUS- as AMS, ASHLEY, anemia and thrombocytopenia- check ldh= 5265, retic. - haptoglobin high -review smear for possible schistocytes -check ck = 720 - uric acid 15, ca 6.7, phos 6.8- possible TLS- repeat uric acid improving - less likely TLS. consider rasburicase per Oncology/ medicine -check renal us- r/o obstruction -give lasix Q HRS- use albumin, midodrine, octreotide and norepi 2, hyponatremia- ur na 26- can be ATN or HRS -high am cortisol level- as recent steroids- assess for possible adrenal insufficiency -normal tsh -monitor w/ ns ivf 3 high bnp- check echo -can be from pleural effusion 4. hypotension and pleural effusion- check echo for possible pericardial effusion and tamponade 5. anemia and thrombocytopenia- high haptoglobin- against TTP -also can be from cancer and/ or meds -elevated LDH -high TSAT noted -elevated alk phos 6. sepsis eval and pleural effusion per pulmonary and critical care -Q UTI - f/u ur cx 7. overall -pt has met ca, ASHLEY, liver failure, anemia, thrombocytopenia -poor prognosis. pt is DNI and does not want dialysis seen and examined w/ RN - telehealth visit informed consent for Telehealth obtained time spent 40 min Status: Acute Plan see above Attestations Medical Necessity Statement*: multi-organ failure Time Spent in Patient Care: Greater than 35 minutes (>than 50% of time spent in counselling and/or direct pt care on unit) . Coding Level of Care Code Acute Vessel Manager for Echo Nicolas Diagnoses ASHLEY (acute kidney injury) N17.9
[2022-07-23 07:26] LABS: 25 Hydroxy Vitamin D 50 ng/mL (30-100); Iron 107 ug/dL (37-145); Percent Saturation 66.8 % (20-50); Total Iron Binding Capacity 160 mcg/dl; Unsaturated Iron Binding 53 ug/dL (112-347)
[2022-07-23 08:00] LABS: Uric Acid 13.1 mg/dL (2.4-5.7)
[2022-07-23] MEDS: hydrocortisone 100 mg/2 mL SDV IVP (08:23)
[2022-07-23] MEDS: sodium chloride 0.9% 1,000 ML 999 ML IV ×2 (08:24→11:39)
--- NOTE | 2022-07-23 08:49 | PC.PHAR ---
BRIEF DISCUSSION WITH DR CURTIS RE: ELITEK: RBTO TO GIVE PATIENT ONE TIME DOSE OF 7.5 MG IV, WILL RECHECK HER IN THE MORNING. MAY WISH TO REPEAT DOSE AT THAT TIME IF NECESSARY.
[2022-07-23] MEDS: budesonide 0.5 mg/2 mL Neb INHALATION ×2 (09:11→20:44)
[2022-07-23] MEDS: ipratropium-albuterol 3 mL Neb INHALATION ×4 (09:11→20:44)
[2022-07-23] MEDS: oxyCODONE-APAP 5-325 mg Tablet 1 TAB PO (09:21)
[2022-07-23 09:35] LABS: Lactate Dehydrogenase 5461 U/L (135-214)
[2022-07-23] MEDS: FUROsemide 10 mg/mL SDV 10mL 60 MG IVP (10:01)
[2022-07-23] MEDS: octreotide 500 MCG in sodium chloride 0.9% (100 ml) 100 ML 10.1 MCG IV ×2 (10:03→19:49)
[2022-07-23 10:36] LABS: Ferritin 11260 ng/mL (15-150)
[2022-07-23 10:57] LABS: Influenza A Not Detected (NOT DETECT); Influenza A H1 Not Detected (NOT DETECT); Influenza A H1-2009 Not Detected (NOT DETECT); Influenza A H3 Not Detected (NOT DETECT); Influenza B Not Detected (NOT DETECT); Results from Genmark
[2022-07-23] MEDS: FUROsemide 100 MG in sodium chloride 0.9% 40 ML 10 MG IV (10:57)
[2022-07-23] MEDS: norepinephrine 8 MG in dextrose 5 % 500 ML 68.58 MG IV ×2 (12:00→16:34)
--- NOTE | 2022-07-23 12:27 | PC.NURSE ---
Patient is currenlty receiving second bolus of NS today. NUrse has observed scleral edema has developed. Patient has not produced any urine despite getting a 60mg bolus of lasix and currently being on a lasix drip. Lung sounds remain the same as this morning with expiratory wheezes. Nurse alerted Dr padron and was ordered to continue the current bolus.
--- NOTE | 2022-07-23 12:57 | P.CONIM_ITS ---
Providers/Reason For Consult Consulting Physician/Specialty*: Can Zee MD FCCP/Pulmonary Critical Care Reason for Consult*: hypotensive and respiratory distress Requesting Physician: Abby Cummings Attending Physician: Milad Chambers MD Primary Care Provider: Tri Ludwig NP History of Present Illness History of Present Illness I have seen Ms. Langston in the hospital during her previous admission from 06/27/2022 to 07/04/2022 for recurrent malignant left pleural effusion and placed left pleurex catheter. Edilma Langston is a 66-year-old female with a history of COPD, initially presented to [facility] on May 30, 2022 with progressive shortness of breath which did not respond to prednisone, she underwent CT scan of the chest on May 30, 2022 which showed large left pleural effusion, stranding and patchy opacities are seen within the left hemithorax superimposed over pleural effusion.? Ill-defined soft tissue attenuation seen in the left upper hemithorax, size about 6.4 x 5.2 x 4.7 cm.? There is a mildly irregular spiculated pulmonary nodule seen in right upper lobe size 1.4 x 2 x 2.3 cm and ill-defined hypoattenuation lesions within the liver, largest is seen in the right hepatic lobe measuring approximately 3 cm in diameter? Highly suspicious for metastatic disease.? On May 31, 2022 she underwent left thoracentesis and pleural fluid cytology confirmed metastatic carcinoma based on immunohistochemistry.? 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 Patient has longstanding history of smoking and still smoking about a pack a day, denies alcohol use.,? She is on home oxygen for COPD. She was seen by my co hector [facility] today in clinic after her diagnosis.? He optimized her COPD medications and recommended to use Bevespi and levalbuterol.? Pulmonary function tests were deferred due to pleural effusion.? She was requiring 4 L supplemental oxygen at home.? Patient became more dyspneic and has to undergo thoracentesis for the second time 06/18/2022-about 1400 cc fluid is drained.? Postprocedure chest x-ray did not improve much-raising suspicion for anteriorly loculated effusion.? She came back to emergency room on 06/27/2022 with increasing dyspnea and also worsening bilateral extremity edema.She was taking Lasix 20 Mg as needed at home.? CT chest imaging reviewed increased size of large left pleural effusion with extensive consolidation/compressive atelectasis of left lung and multiple pleural-based masses.? Fluid does not appear to be loculated.? There is also a concern that some part of this pleural effusion can be from atelectasis of the left lung due to possible endobronchial mass lesion.? However it is hard to say at this point due to large pleural effusion contributing to compressive atelectasis.? pulmonary consulted for recurrent malignant left pleural effusion causing dyspnea.? I have placed a left Pleurx catheter on 06/29/2022.?? Overall more than 2.5 L was drained during hospitalization. Fluid studies were negative for any signs of infection. Patient blood culture were negative but sputum culture grew Kika as well as a stenotrophomonas resistant to Levaquin.? P atjorge is allergic to Bactrim.? Her hospitalization was complicated by her developing episodes of hypoxic respiratory failure post [place] drain placement.? Pneumothorax was ruled out.? She was treated with broadening of antibiotics along with IV steroids.? Patient was encouraged multiple times to be out of bed and aggressive pulmonary toilet with I-S and Acapella.Patient responded really well to aggressive pulmonary toilet and is back to around 4 to 5 L of oxygen supplementation to keep saturation more than 92%.? During hospitalization she also developed mild ASHLEY which was treated with IV hydration.? Echocardiogram was tried multiple times but because of poor echo windows most likely from distorted lung from malignancy and pleural effusion no good echo window was available.? Post drainage CTA on 06/30/2022 showed improved left pleural effusion with left chest tube.? Persistent circumferential pleural thickening left lung with pleural masses and metastatic disease similar to previous.? Spiculated mass in the right upper lobe is unchanged.Also during that hospitalization she was tested positive for [id number] her oxygen requirements remained stable around 4 to 6 L, she received remdesivir as well as dexamethasone. She was discharged on 07/04/2022 with 5 days of levofloxacin and Augmentin, current prednisone taper dose 40mg x 3 days. ? Using Xopenex inhaler, ipratropium, budesonide and levalbuterol neb solution.? Reports Stiolto inhaler did not help so she discontinued. ?Former cigarette smoker,? 1-2ppd x 49 year Hx, started age 17, quit Jun 2022. Patient underwent PET/CT on 07/05/20[facility] at [facility]-which showed extensive tumor involvement in the left lung/left pleura, mediastinum, liver, adrenal glands and bone.? There is single right lung upper lobe nodular density consistent with a second primary versus metastatic lesion.? Right breast nodular density versus right axillary location consistent with tumor involvement.? No lytic lesions. ? Patient has seen oncology 06/14/2022 and had a Chemo-Port placed 06/21/2022.? Patient to follow-up with oncology. Since her clinic visit on 07/09/2022-for removal of sutures for a Pleurx catheter- she has been drained as outpatient weekly once-for 2 weeks with drainage 75 cc and 50 cc respectively Yesterday 07/22/2022-she was sent from her PCP office to emergency room for increasing fatigue, weakness and shortness of breath, low blood pressures. Her oxygen requirements went up to 10 L from 6 L, requiring Levophed and vasopressin, alert and oriented during the time of admission and following commands. Her lab work was suggestive of multiorgan failure-with creatinine 3.4, significantly elevated LFTs and ALP, elevated troponins. She was admitted for suspected septic shock and started on pressor support with Levophed and vasopressin and initiated antibiotics. CT chest in the emergency room showed wo rsening diffusely irregular lobulated left pleural thickening consistent with metastatic disease with collapse of majority of the left lung. There are some residual areas of aeration lung in the apex at lung base with findings consistent with lymphangitic carcinomatosis. Severe contralateral metastatic lesion seen in the right lung apex. Metastatic mediastinal, right axillary, hepatogastric, pericardial lymph nodes. Abnormal lobulated appearance of adrenal glands. Pulmonary critical care consulted for worsening clinical condition and patient I have discussed with ED physician as well as admitting director of culture-that patient needs comprehensive goals of care treatment as her current clinical condition is to worsening of her underlying malignancy. -Today morning, I I discussed with patient's daughter at bedside-they understand that chemotherapy at this point may not help her and are leaning more towards comfort care. Worsening renal functions are concerning for tumor lysis syndrome but patient does not want hemodialysis nor does she want intubation. Daughter mentioned to continue medical management with no escalation to aggressive care for 24 hours and may switch to comfort care once all the family members get a chance to see her For now we will continue pressor support, antibiotics, nebulizations, steroids support -Urine analysis suggestive of UTI-urosepsis may be the cause for her septic shock-continue antibiotics Review of Systems General: Reports: ROS unobtainable due to endotracheal tube, ROS unobtainable due to medical condition and ROS unobtainable due to mental status Medications/Allergies Home Medications Medication Instructions Recorded Confirmed Last Taken Type omeprazole 40 mg capsule,delayed 40 mg PO DAILY 8 weeks #60 caps 05/14/22 07/22/22 07/22/22 Rx release ezetimibe 10 mg tablet (Zetia) 10 mg PO DAILY 05/30/22 07/22/22 07/22/22 History rosuvastatin 40 mg tablet 40 mg PO BEDTIME 05/30/22 07/22/22 07/21/22 History docusate sodium 100 mg capsule 100 mg PO DAILY 06/10/22 07/22/22 07/22/22 History levalbuterol HCl 0.63 mg/3 mL 0.63 mg (3 mL) inhalation TID PRN 06/10/22 07/22/22 06/21/22 Rx solution for nebulization shortness of breath or wheezing 30 days #270 mL cholecalciferol (vitamin D3) 1,250 50,000 unit PO Q7D 06/28/22 07/22/22 07/22/22 History mcg (50,000 unit) capsule levalbuterol tartrate 45 2 puff inhalation Q6H PRN 06/28/22 07/22/22 Unknown History mcg/actuation aerosol inhaler Shortness Of Breath ascorbic acid (vitamin C) 500 mg 500 mg PO DAILY #14 tabs 07/04/22 07/22/22 07/22/22 Rx tablet (Vitamin C) ferrous gluconate 324 mg (37.5 mg 324 mg PO BIDWM #60 tabs 07/04/22 07/22/22 07/22/22 Rx iron) tablet furosemide 20 mg tablet (Lasix) 20 mg PO DAILY 30 days #30 tabs 07/04/22 07/22/22 07/22/22 Rx ipratropium bromide 0.02 % 1.25 ml inhalation Q8H #75 mL 07/04/22 07/22/22 07/22/22 Rx solution for inhalation zinc gluconate 50 mg tablet 50 mg PO DAILY #14 tabs 07/04/22 07/22/22 07/22/22 Rx budesonide 0.5 mg/2 mL suspension 0.25 mg inhalation Q12H #60 mL 07/19/22 07/22/22 07/22/22 Rx for nebulization (Pulmicort) Rolator With Seat 07/22/22 07/22/22 Unknown History Allergies Allergy/AdvReac Type Severity Reaction Status Date / Time celecoxib [From Celebrex] Allergy Intermediate ALGY-Rash Verified 07/22/22 17:58 Sulfa (Sulfonamide Allergy Intermediate ALGY-Rash Verified 07/22/22 17:58 Antibiotics) Current Medications Generic Name Dose Route Start Last Admin Trade Name Freq PRN Reason Stop Dose Admin Albuterol/Ipratropium 3 ml 07/23/22 08:00 07/23/22 12:06 Ipratropium-Albuterol 3 Ml Neb INHALATION 3 ml QID.RESPIRATORY LEÓN Administration Budesonide 0.5 mg 07/23/22 08:00 07/23/22 09:11 Budesonide 0.5 Mg/2 Ml Neb INHALATION 0.5 mg BID.RESPIRATORY LEÓN Administration Piperacillin Sod/Tazobactam 50 mls @ 12.5 mls/hr 07/23/22 01:00 07/23/22 12:18 Sod 3.375 gm/ Sodium Chloride IV 12.5 mls/hr Q12H LEÓN Administration Protocol As Directed Fluconazole 200 mg in 100 mls @ 100 mls/hr 07/22/22 22:00 07/23/22 00:00 Diflucan Premix IV Infused Q24H LEÓN Infusion Vasopressin 100 unit/ Sodium 100 mls @ 0 mls/hr 07/23/22 02:00 07/23/22 11:52 Chloride IV 0 unit/min .Q0M LEÓN 0 mls/hr Titration Protocol Per Protocol Norepinephrine Bitartrate 8 mg 508 mls @ 0 mls/hr 07/23/22 02:15 07/23/22 11:51 / Dextrose IV Infused .Q0M LEÓN Titration Protocol Per Protocol Albumin Human 25 gm in 100 mls @ 60 mls/hr 07/23/22 08:30 07/23/22 09:50 Albumin IV 60 mls/hr Q8H LEÓN Administration Octreotide Acetate 500 mcg/ 101 mls @ 10.1 mls/hr 07/23/22 08:45 07/23/22 10:03 Sodium Chloride IV 50 mcg/hr .Q10H LEÓN 10.1 mls/hr Administration 50 MCG/HR Furosemide 100 mg/ Sodium 50 mls @ 0 mls/hr 07/23/22 08:45 07/23/22 12:02 Chloride IV 40 mg/hr .Q0M LEÓN 20 mls/hr Titration Protocol Per Protocol Oxycodone/Acetaminophen 1 tab 07/23/22 08:14 07/23/22 09:21 Oxycodone-Apap 5-325 Mg Tablet PO 1 tab Q4H PRN Administration MODERATE PAIN PFSH Acute PFSH: Medical History Anxiety Arthritis of both knees Asthma CAD (coronary artery disease) COPD (chronic obstructive pulmonary disease) Depressed Enrolled in chronic care management GERD (gastroesophageal reflux disease) History of MRSA infection History of vitamin D deficiency HLD (hyperlipidemia) Insomnia Mixed hyperlipidemia Shoulder pain Small cell lung cancer Smoking addiction Visit for suture removal Surgical History H/O lumpectomy History of bilateral tubal ligation History of D&C History of knee surgery Hx of cholecystectomy Hx of tonsillectomy Family History Father CAD (coronary artery disease) DE (mitral incompetence) COPD (chronic obstructive pulmonary disease) Lung disease Mother Cancer Lung disease Other Diabetes Hyperlipidemia Denies family history of Clotting disorder Dementia Psychiatric illness Chronic kidney disease (CKD) Suicide Anesthesia complication Bleeding disorder Hypertension Stroke Social History Smoking and tobacco status: never smoked Quit status (tobacco): has quit using tobacco Year quit tobacco: 2021 Former quit date comment: 1-2ppd x 49 years Alcohol intake: never Lives independently: Yes Household members: spouse Marital status: Vitals/I&O/Wt Last Vital Signs Temp 97.2 F L 07/23/22 08:30 Pulse 100 07/23/22 12:16 Resp 22 H 07/23/22 12:16 BP 112/73 07/23/22 10:30 Pulse Ox 97 07/23/22 12:16 O2 Del Method 07/23/22 12:16 O2 Flow Rate 6 07/23/22 12:16 FiO2 40 07/23/22 02:22 07/22/22 07/23/22 07/23/22 22:59 06:59 14:59 Intake Total 254.000 / 191.874 4354.500 / 2650.500 1028.753 / 1028.753 Output Total 140 / 140 Balance 254.000 / 053.436 6865.500 / 2510.500 1028.753 / 1028.753 Weight last 48 hrs Weight 185 lb 1.6 oz Physical Exam Narrative: General: alert, in respiratory distress HEENT: conj clear, EOMI, PERRL, mmm, Neck: supple, no meningismus Heme: no cervical LAP Pulmonary: Reduced breath sounds on left lung Cardiovascular: rrr, nl s1s2, no mrg Abdomen: soft, nt, nd, no r/g, bs+ Extremities: pulses +, 1+ pitting pedal edema, no c/c : no CVA tenderness Skin: intact, no rash MSK: no back or neck pain Neurologic: Drowsy, arousable follows commands Urinary Catheter Management: Pereira: Cath Placed During This Visit: yes Reason for Continuing Indwelling Catheter: Accurate Measurement of Urinary Output in Critically Ill Patients Urinary Catheter Date of Insertion: 07/22/22 Urinary Catheter Time of Insertion: 10:30 Data : 07/23/22 03:20 07/23/22 03:20 Other Labs: Radiology Impressions Chest X-Ray 07/22/22 16:56 IMPRESSION: Persistent opacification of the left lung. No significant interval change. Chest CT 07/22/22 19:35 IMPRESSION: 1. The following impression points have all worsened/progressed within a short interval from most recent comparison. 2. Diffusely irregular lobulated left pleural thickening consistent with metastatic disease, with collapse of the majority of the left lung. 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 Several contralateral metastatic lesions seen in the right lung measuring up to 2 cm at the right lung apex. 3. Metastatic mediastinal, right axillary, hepatogastric, and pericardial lymph nodes. 4. Abnormal lobulated appearance of the adrenal glands suspicious for metastasis. Renal Ultrasound 07/22/22 19:35 IMPRESSION: No hydronephrosis. Venous Duplex 07/22/22 19:49 IMPRESSION: No evidence of deep vein thrombosis. Abdomen/Pelvis CT 07/23/22 05:10 IMPRESSION: 1. No significant intra or extrahepatic biliary dilatation within the limitations of this noncontrast exam. 2. Hepatic cirrhosis. Poorly defined/visualized areas of hypoattenuation in the liver, difficult to exclude malignancy. Consider follow-up MRI. 3. Evidence of metastatic disease again noted in the chest. 4. Irregularity of the adrenal glands concerning for metastatic disease. 5. Trace abdominopelvic ascites. COMMENTS: Evaluation of solid organs and vascular structures is limited as no IV contrast was administered. Laboratory Results WBC 7.7 10^3/uL (4.0-10.0) 07/23/22 03:20 RBC 3.35 10^6/uL (4.1-5.3) L 07/23/22 03:20 Hgb 10.2 g/dL (11.5-15.3) L 07/23/22 03:20 Hct 31.8 % (37.0-47.0) L 07/23/22 03:20 MCV 94.9 fl (81-99) 07/23/22 03:20 MCH 30.4 pg (28.0-34.0) 07/23/22 03:20 MCHC 32.1 g/dL (30.0-36.0) 07/23/22 03:20 RDW 14.1 % (12.1-15.1) 07/23/22 03:20 Plt Count 51 10^3/cmm (130-400) L 07/23/22 03:20 MPV 11.0 fL (7.4-10.4) H 07/23/22 03:20 Neut % (Auto) 65.9 % 07/23/22 03:20 Lymph % (Auto) 21.4 % 07/23/22 03:20 [place] % (Auto) 2.5 % 07/23/22 03:20 Eos % (Auto) 0.1 % 07/23/22 03:20 Baso % (Auto) 0.8 % 07/23/22 03:20 Reticulocyte % (Auto) 1.2 % (0.5-2.0) 07/22/22 17:18 Neut # (Auto) 5.05 10^3/uL (1.8-7.7) 07/23/22 03:20 Lymph # (Auto) 1.6 10^3/uL (0.8-4.8) 07/23/22 03:20 [place] # (Auto) 0.2 10^3/uL (0.2-0.9) 07/23/22 03:20 Eos # (Auto) 0.0 10^3/uL (0.0-0.8) 07/23/22 03:20 Baso # (Auto) 0.1 10^3/uL (0.0-0.1) 07/23/22 03:20 Nucleated RBC % (auto) 5.4 % 07/23/22 03:20 Nucleated RBCs # 0.4 /100WBC 07/23/22 03:20 ESR 33 mm/hr (0-15) H 07/22/22 17:18 Haptoglobin 307.0 mg/L (30-200) H 07/22/22 17:18 PT 15.10 SECONDS (12.1-14.9) H 07/22/22 19:20 INR 1.16 (0.8-1.2) 07/22/22 19:20 Specimen Type Arterial 07/22/22 17:35 Sample Site Not Reportable 07/22/22 17:35 ABG pH 7.45 (7.35-7.45) 07/22/22 17:35 ABG pCO2 49.0 mmHg (35-45) H 07/22/22 17:35 ABG pO2 184.0 mmHg (80.0-100.0) H 07/22/22 17:35 ABG HCO3 33.6 mmol/L (22-26) H 07/22/22 17:35 ABG O2 Saturation 99.8 07/22/22 17:35 ABG Base Excess 8.5 mmol/L (-2.0-2.0) H 07/22/22 17:35 Mihir Test Pos 07/22/22 17:35 A-a O2 Gradient Not Reportable 07/22/22 17:35 Hematocrit 29.4 % (37-47) L 07/22/22 17:35 Hgb O2 Saturation 98.5 % (95-100) 07/22/22 17:35 Carboxyhemoglobin < 1.0 %THgb (0.4-20.1) 07/22/22 17:35 Methemoglobin 0.7 % (0.4-1.5) 07/22/22 17:35 Total Hemoglobin 9.6 g/dL (12-16) L 07/22/22 17:35 Sodium 123.0 mmol/L (131-143) L 07/22/22 17:35 Potassium 3.8 mmol/L (3.5-5.0) 07/22/22 17:35 Glucose 105.0 mg/dL (70-115) 07/22/22 17:35 Ionized Calcium 1.0 mmol/L (1.1-1.4) L 07/22/22 17:35 O2 Delivery Device Nrb 07/22/22 17:35 Faucet Polisher ID Ck 07/22/22 17:35 Sodium 122 mmol/L (136-145) L 07/23/22 03:20 Sodium Cancelled 07/23/22 03:20 Potassium 4.2 mmol/L (3.5-5.1) 07/23/22 03:20 Potassium Cancelled 07/23/22 03:20 Chloride 82 mmol/L (98-107) L 07/23/22 03:20 Chloride Cancelled 07/23/22 03:20 Carbon Dioxide 24 mmol/L (22-29) 07/23/22 03:20 Carbon Dioxide Cancelled 07/23/22 03:20 Anion Gap 20.2 (5-19) H 07/23/22 03:20 Anion Gap Cancelled 07/23/22 03:20 BUN 56 mg/dL (8-23) H 07/23/22 03:20 BUN Cancelled 07/23/22 03:20 Creatinine 3.9 mg/dL (0.5-0.9) H 07/23/22 03:20 Creatinine Cancelled 07/23/22 03:20 GFR Calculation 11.6 mL/min (90-130) L 07/23/22 03:20 GFR Calculation Cancelled 07/23/22 03:20 Glucose 219 mg/dL (65-115) H 07/23/22 03:20 Glucose Cancelled 07/23/22 03:20 Calculated Osmolality 276 mOsm/kg (285-295) L 07/23/22 03:20 Calculated Osmolality Cancelled 07/23/22 03:20 Lactic Acid 1.8 mmol/L (0.5-2.2) 07/23/22 03:20 Lactate 2.2 mmol/L (0.5-2.2) 07/22/22 17:18 Uric Acid 13.1 mg/dL (2.4-5.7) H 07/23/22 03:20 Calcium 6.7 mg/dL (8.5-10.5) L 07/23/22 03:20 Calcium Cancelled 07/23/22 03:20 Phosphorus 6.8 mg/dL (2.5-4.5) H 07/22/22 17:18 Phosphorus 6.9 mg/dL (2.5-4.5) H 07/22/22 17:18 Magnesium 2.3 mg/dL (1.7-2.3) 07/23/22 03:20 Iron 107 ug/dL (37-145) 07/23/22 03:20 TIBC 160 mcg/dl 07/23/22 03:20 % Saturation 66.8 % (20-50) H 07/23/22 03:20 Unsat Iron Binding 53 ug/dL (112-347) L 07/23/22 03:20 Ferritin 11984 ng/mL (15-150) H 07/23/22 03:20 Total Bilirubin 2.0 mg/dL (0.15-1.2) H 07/23/22 03:20 AST 536 U/L (0-32) H 07/23/22 03:20 ALT 300 U/L (0-33) H 07/23/22 03:20 Alkaline Phosphatase 1067 U/L (35-105) H* 07/23/22 03:20 Lactate Dehydrogenase 5461 U/L (135-214) H 07/23/22 03:20 Creatine Kinase 720 U/L (26-192) H* 07/22/22 17:18 Troponin T Baseline 531 ng/L (0-10) H* 07/22/22 17:18 Troponin T 120 Minute 530.8 ng/L (0-10) H 07/22/22 19:00 Delta Troponin T -0.2 ABS# (0-10) L 07/22/22 19:00 Troponin T Hi Sens 6Hr 512.8 ng/L (0-10) H 07/22/22 23:09 Troponin T Hi Sens 6Hr Delta -18.2 ng/L (0-12) L 07/22/22 23:09 C-Reactive Protein 89.1 mg/L (0.0-4.9) H 07/22/22 17:18 NT-Pro-B Natriuret Pep 07338 pg/mL (0-125) H 07/22/22 17:18 Total Protein 5.0 g/dL (6.6-8.7) L 07/23/22 03:20 Albumin 1.9 g/dL (3.5-5.2) L 07/23/22 03:20 Globulin 3.1 g/dL (1.3-4.6) 07/23/22 03:20 25-OH Vitamin D Total 50 ng/mL (30-100) 07/23/22 03:20 Procalcitonin 92.70 ng/mL (0-0.5) H 07/22/22 17:18 TSH 3.04 uIU/mL (0.27-4.20) 07/22/22 17:18 Free T4 0.33 ng/dL (0.82-1.77) L 07/22/22 17:18 Random Cortisol 80.79 ug/dL (2.47-19.5) H 07/23/22 03:20 Urine Color Ana (Yellow) 07/22/22 22:46 Urine Color Cancelled 07/22/22 22:46 Urine Appearance Cancelled 07/22/22 22:46 Urine Appearance Hazy (CLEAR) A 07/22/22 22:46 Urine pH 5 (5-7) 07/22/22 22:46 Urine pH Cancelled 07/22/22 22:46 Ur Specific [place] 1.020 (1.005-1.030) 07/22/22 22:46 Ur Specific [place] Cancelled 07/22/22 22:46 Urine Protein 1+ (Negative) H 07/22/22 22:46 Urine Protein Cancelled 07/22/22 22:46 Urine Glucose (UA) Cancelled 07/22/22 22:46 Urine Glucose (UA) Norm (Normal) 07/22/22 22:46 Urine Ketones Cancelled 07/22/22 22:46 Urine Ketones Negative (Negative) 07/22/22 22:46 Urine Blood 3+ (Negative) H 07/22/22 22:46 Urine Blood Cancelled 07/22/22 22:46 Urine Nitrate Cancelled 07/22/22 22:46 Urine Nitrate Positive (Negative) H 07/22/22 22:46 Urine Bilirubin 1+ (Negative) H 07/22/22 22:46 Urine Bilirubin Cancelled 07/22/22 22:46 Prot Sulfosalicylic Acd Cancelled 07/22/22 22:46 Urine Urobilinogen 1 mg/dL (Negative) H 07/22/22 22:46 Urine Urobilinogen Cancelled 07/22/22 22:46 Ur Leukocyte Esterase Cancelled 07/22/22 22:46 Ur Leukocyte Esterase Trace (Negative) H 07/22/22 22:46 Urine RBC 5-10 /hpf (0-2) H 07/22/22 22:46 Urine WBC 0-4 /hpf (0-5) H 07/22/22 22:46 Ur Squamous Epith Cells 5-10 /hpf (0-5) H 07/22/22 22:46 Amorphous Sediment Not Reportable 07/22/22 22:46 Urine Bacteria 4+ /hpf (NONE) H 07/22/22 22:46 Ur Random Sodium 26 mmol/L 07/22/22 22:46 Ur Random Potassium 29 mmol/L 07/22/22 22:46 Ur Random Chloride 37 mmol/L 07/22/22 22:46 Nasal Influ A H1 2008 PCR Not detected (NOT DETECT) 07/22/22 Unknown Coronavirus 229E (PCR) Not detected (NOT DETECT) 07/22/22 Unknown Hepatitis C Antibody Non-reactive (Nonreactive) 07/22/22 20:20 Influenza A (H1) PCR Not detected (NOT DETECT) 07/22/22 Unknown Influenza A (H3) PCR Not detected (NOT DETECT) 07/22/22 Unknown Influenza Type A (PCR) Not detected (NOT DETECT) 07/22/22 Unknown Influenza Type B (PCR) Not detected (NOT DETECT) 07/22/22 Unknown SARS-CoV-2 (PCR) Not detected (NOT DETECT) 07/22/22 Unknown Micro: Microbiology 07/22/22 17:39 Blood Culture - Preliminary Blood SPECIMEN COLLECTED 07/22/22 17:35 Blood Culture - Preliminary Blood SPECIMEN COLLECTED A&P Assessment and plan (1) Shock: Status: Acute (2) Acute on chronic respiratory failure with hypoxia: Status: Acute (3) Small cell lung cancer: Status: Acute (4) CHF exacerbation: Status: Acute (5) COPD (chronic obstructive pulmonary disease): Status: Acute (6) UTI (urinary tract infection): Status: Acute (7) Infection with Stenotrophomonas maltophilia resistant to multiple drugs: Status: Acute (8) ASHLEY (acute kidney injury): Status: Acute (9) Thrombocytopenia: Status: Acute (10) Counseling regarding goals of care: Status: Acute Plan #Shock-sepsis vs obstructive vs adrenal mets -Afebrile, normal WBC -UA suggestive of urosepsis nitrate positive leukoesterase positive-cultures pending -Her sputum cultures during previous admission grew stenotrophomonas (resistant to Levaquin and patient is allergic to Bactrim ) and Kika -Currently on Levophed and vasopressin with target MAP greater than 65 -Also on hydrocortisone 50 every 6 hours -Currently on vancomycin and Zosyn, fluconazole -Blood cultures pending-we will send for urine cultures #recurrent left pleural [id number] diagnosed small cell cancer- #Acute on chronic hypoxia secondary to large pleural effusion and small cell lung cancer #COPD and chronic smoker #[id number] smoking history #Recent COVID-19 infection last month-she was treated with remdesivir and dexamethasone at that time and was discharged with baseline home oxygen 4 L -Patient is currently following up with oncology and had port placed on 06/22/2022-yet to start her chemotherapy -Had 1000 cc drained 05/31/2022; 1400 cc drained on 06/18/2022 ; I placed Pleurx catheter 06/29/22-drained 1 L hemorrhagic fluid and fluid analysis was lymphocyte predominant exudative; glucose 119, -She was drained 3 times as outpatient-weekly once-yielded less than 100 cc at each visit -Currently requiring 10 L supplemental oxygen -Currently on DuoNeb nebulization every 4 hour scheduled -CT chest 07/22/2022: Diffusely irregular lobulated left pleural thickening consistent with metastatic disease, with collapse of the majority of the left lung. 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 Several contralateral metastatic lesions seen in the right lung measuring up to 2 cm at the right lung apex. Metastatic mediastinal, right axillary, hepatogastric, and pericardial lymph nodes. # Thrombocytopenia - Send for DIC panel #? CHF exacerbation #Worsening ASHLEY, LFTs-suspect secondary to shock -There is a concern some amount of fluid may be from suspected CHF as BNP is significantly elevated -Patient is on Lasix drip -Monitor input output and try to keep net negative to even fluid balance -Check electrolytes and supplement accordingly This patient with advanced metastatic small cell lung cancer-presented with significant shock requiring 2 vasopressors and increasing requirements of oxygen-possible multiorgan failure as evidenced by worsening renal and liver functions. She has history of drug-resistant stenotrophomonas sputum culture positive during last visit, this admission she has UA reflecting urosepsis- possibly causing her septic shock component. However patient did not wanted endotracheal intubation and hemodialysis in case her renal functions deteriorate. Overal bedside goals of care discussion with patient's daughter-I got an impression that we will continue current management without escalating to aggressive care and after 24 hours we will make further decisions about comfort care depending on how patient responds. Recommendations conveyed to hospitalist, RN taking care of the patient Consult Attestations Medical Necessity Statement: Shock requiring vasopressors, impending respiratory failure, impending renal failure and currently multiorgan failure-in the setting of underlying metastatic small cell cancer Time Spent in Patient Care: Greater than 35 minutes (>than 50% of time spent in counselling and/or direct pt care on unit) . Critical Care Time: The high probability of a clinically significant, sudden or life threatening deterioration of the patient's [respiratory, renal, infectious, hepatic] system(s) required my full and direct attention, intervention and personal management. The critical care time is as shown. 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
--- NOTE | 2022-07-23 13:04 | PC.NURSE ---
Patient is reporting more difficult work of brathing and feel slike she is out of breath, CUrrently oxygen saturation is 94%. Nurse listened to lungs and they sound wet. Nurse stopped fluids and placed patient on bipap. Patient reports relief after interventions. NUrse alerted Dr padron and was advised to keep the fluids turned off and keep on bipap at this time.
--- NOTE | 2022-07-23 13:13 | PC.CHAP ---
Pastoral Care Encounter/Spiritual Assessment Type of Contact [] Declined superintendent pressure visit [] Patient/Family/Request visit [] Outpatient visit [] Follow-up visit [] Physician referral [] Code/Alert [x] Routine visit [] Staff referral [] Actively dying [] Patient sleeping [x] Family support [] [] Out of room [] Palliative care [] [] Receiving care in room [] Pre-surgical visit [] Trauma [] Long length of stay [x] ICU visit [x] Other: lots of family present... no comfort care needed at present Relational/Emotional Strength [] Patient feels connected with others/family/visitors/staff [] Distress [] Loneliness/isolation [] Abandonment Spirituality of Patient [] Person of Prabha [] Attends Jain of their Prabha [] Believes in Prayer [] Reads Bible or Mandaen materials [] There are Spiritual issues to be addressed Resident Services Director Interventions [x] Prayer [] Active listening [] Non-anxious presence [] Spiritual/emotional support [] Crisis/trauma care [] Spiritual counseling [] Bereavement support [] Provided bereavement packet [] Provided Bible/devotional materials [] Provided toy/stuffed animal, coloring book to patient or family member [] Provided Communion [] Anointing/[place] [] Salvation [x] Completed spiritual assessment [] Other: Impact on Illness or Injury [] Angry [] Fearful [] Anxious [] Often cries [] Exhaustion [] Unable to work [] Unable to attend religious [] Unable to walk/stand [] Unable to read [] Unable to drive [] Unable to eat/drink [] Unable to sleep [] Unable to be with family [] Patient intubated [] Other: Summary Time spent with patient
[2022-07-23] MEDS: FUROsemide 100 MG in sodium chloride 0.9% 40 ML 30 MG IV (13:51)
[2022-07-23] MEDS: hydrocortisone 100 mg/2 mL SDV 50 MG IVP ×2 (14:29→20:58)
--- NOTE | 2022-07-23 15:12 | PM.PN ---
Subjective Subjective: Patient was seen and examined this morning, currently she is on 2 vasopressors Levophed as well as vasopressin, she is also requiring 5 to 6 L oxygen through Oxyi mask, currently she does not have any urine output, labs are consistent with tumor lysis syndrome, she was placed on Lasix drip, maxed out at 80 mg/h, has been switched to Bumex drip at 3 mg/h, with the intent to go up on the rate. Looks like it will be a futile exercise, in absence of hemodialysis. Family currently want conservative medical management, they do not want any dialysis, CODE STATUS has also been changed to AND. Family is leaning more towards comfort care, I am anticipating that they will be ready to make this decision by tomorrow. Medications: Reviewed: Yes Medication Review Details: Generic Name Dose Route Start Last Admin Trade Name Freq PRN Reason Stop Dose Admin Albuterol/Ipratrop ium 3 ml 07/23/22 08:00 07/23/22 12:06 Ipratropium-Albu terol 3 Ml Neb INHALATION 3 ml QID.RESPIRATORY S CH Administration Budesonide 0.5 mg 07/23/22 08:00 07/23/22 09:11 Budesonide 0.5 M g/2 Ml Neb INHALATION 0.5 mg BID.RESPIRATORY S CH Administration Hydrocortisone Sod ium Succinate 50 mg 07/23/22 14:00 07/23/22 14:29 Hydrocortisone 1 00 Mg/2 Ml Sdv IVP 50 mg Q6H LEÓN Administration Piperacillin Sod/T azobactam 50 mls @ 12.5 mls /hr 07/23/22 01:00 07/23/22 12:18 Sod 3.375 gm/ So dium Chloride IV 12.5 mls/hr Q12H LEÓN Administration Protocol As Directed Fluconazole 200 mg in 100 mls @ 100 mls/hr 07/22/22 22:00 07/23/22 00:00 Diflucan Premix IV Infused Q24H LEÓN Infusion Vasopressin 100 un it/ Sodium 100 mls @ 0 mls/h r 07/23/22 02:00 07/23/22 11:52 Chloride IV 0 unit/min .Q0M LEÓN 0 mls/hr Titration Protocol Per Protocol Norepinephrine Bit artrate 8 mg 508 mls @ 0 mls/h r 07/23/22 02:15 07/23/22 11:51 / Dextrose IV Infused .Q0M LEÓN Titration Protocol Per Protocol Albumin Human 25 gm in 100 mls @ 60 mls/hr 07/23/22 08:30 07/23/22 09:50 Albumin IV 60 mls/hr Q8H LEÓN Administration Octreotide Acetate 500 mcg/ 101 mls @ 10.1 ml s/hr 07/23/22 08:45 07/23/22 10:03 Sodium Chloride IV 50 mcg/hr .Q10H LEÓN 10.1 mls/hr Administration 50 MCG/HR Furosemide 100 mg/ Sodium 50 mls @ 0 mls/hr 07/23/22 08:45 07/23/22 13:51 Chloride IV 60 mg/hr .Q0M LEÓN 30 mls/hr Administration Protocol Per Protocol Oxycodone/Acetamin ophen 1 tab 07/23/22 08:14 07/23/22 09:21 Oxycodone-Apap 5 -325 Mg Tablet PO 1 tab Q4H PRN Administration MODERATE PAIN Vitals/I&O/Wt Last Vital Signs Temp 97.2 F L 07/23/22 12:45 Pulse 99 07/23/22 14:15 Resp 9 L 07/23/22 14:15 BP 93/62 07/23/22 14:15 Pulse Ox 97 07/23/22 14:15 O2 Del Method 07/23/22 12:45 O2 Flow Rate 6 07/23/22 12:16 FiO2 40 07/23/22 12:45 07/23/22 07/23/22 07/23/22 06:59 14:59 22:59 Intake Total 2396.500 / 2650.500 1065.086 / 1065.086 Output Total 140 / 140 0 / 0 Balance 2256.500 / 2510.500 1065.086 / 1065.086 Weight last 48 hrs Weight 83.96 kg Physical Exam Const: COMMON NORMALS: patient oriented x3 Resp: COMMON NORMALS: normal respiratory effort, No retractions and No use of accessory muscles EFFORT & INSPECTION: Yes symmetric chest movement OTHER: Bilateral basal crackles, diminished entry bilaterally predominantly on the left side. Cardio: COMMON NORMALS: regular rate, regular rhythm, S1 normal heart sound present, S2 normal heart sound present, No gallops present (Cardio), No murmurs present (Cardio), No rub (Cardio) and Peripheral pulses 2+ throughout RATE: regular rate RHYTHM: regular rhythm HEART SOUNDS: S1 normal heart sound present and S2 normal heart sound present PERIPHERAL PULSES: Peripheral pulses 2+ throughout GI: COMMON NORMALS: Normal to inspection, nondistended, normoactive bowel sounds present, Soft to palpation, non-tender, No hepatosplenomegaly present and no masses AUSCULTATION: Yes normoactive bowel sounds PALPATION: Yes Soft to palpation and Yes No hepatosplenomegaly present RECTAL EXAM: deferred Extremity: COMMON NORMALS: no clubbing, cyanosis or edema and no pedal edema Neuro: COMMON NORMALS: patient oriented x3 Urinary Catheter Management: Pereira: Cath Placed During This Visit: yes Reason for Continuing Indwelling Catheter: Accurate Measurement of Urinary Output in Critically Ill Patients Urinary Catheter Date of Insertion: 07/22/22 Urinary Catheter Time of Insertion: 10:30 Data : 07/23/22 03:20 07/23/22 03:20 Micro: Microbiology 07/22/22 17:39 Blood Culture - Preliminary Blood SPECIMEN COLLECTED 07/22/22 17:35 Blood Culture - Preliminary Blood SPECIMEN COLLECTED A&P Assessment and plan (1) ASHLEY (acute kidney injury): Status: Acute (2) Non-ST elevation [place] (NSTEMI): Status: Acute (3) CKD (chronic kidney disease): Status: Acute (4) Acute and chronic respiratory failure with hypoxia: Status: Acute (5) Small cell lung cancer: Status: Acute (6) Body mass index (BMI) of 40.1 to 44.9 in adult: Status: Acute (7) COPD (chronic obstructive pulmonary disease): Status: Acute (8) Mixed hyperlipidemia: Status: Acute (9) Thrombocytopenia: Status: Acute (10) Hyponatremia: Status: Acute (11) Tumor lysis syndrome: Status: Acute Plan Acute hypoxic respiratory failure -Secondary to pneumonia -Secondary to recurrent left pleural effusion, malignant -Secondary to small cell lung cancer with metastasis -Possible pulmonary embolism - systolic CHF exacerbation Plan -Admit to ICU -Monitor respiratory status closely -BiPAP overnight -Continue Levophed to maintain MAP more than 65, has a family place -Broad-spectrum antibiotic therapy, vancomycin, Zosyn -Patient's sputum cultures during her last hospitalization showed stretomonas, which was martin resistant, patient has an allergy to sulfa, resistant to Levaquin -Sputum culture showed Kika, start fluconazole -Will follow sputum cultures, blood cultures, urine culture, obtain pleural cultures -DuoNeb treatments -Budesonide -Continue therapeutic Lovenox, monitor platelet count -Lasix 40 mg IV push every 24 hours, monitor urine output, monitor hemodynamics, will titrate based on clinical progress --full code -Lovenox for DVT prophylaxis Septic shock -Likely secondary to pneumonia -Continue Levophed, wean him off in the 65 Recurrent pleural effusion, cardiac echo, CT chest, pleural studies, pulmonary has been consulted Small cell lung cancer, with metastasis NSTEMI -Likely supply demand ischemia however cannot rule out underlying cardiac etiology -Serial EKGs serial troponins, telemetry monitoring -Cannot do a CT angiogram given elevated creatinine, will do venous ultrasound, has received therapeutic Lovenox Systolic CHF, elevated BNP, cardiac echo, Lasix Hyponatremia, likely secondary to the component of adrenal insufficiency, CHF, sepsis, monitor, nephrology has been consulted Status is critical Prognosis is guarded Family made aware of patient's critical status Attestations Medical Necessity Statement*: Patient is in hospital for management of shock with multiorgan failure, likely septic shock Time Spent in Patient Care: Greater than 35 minutes (>than 50% of time spent in counselling and/or direct pt care on unit). Critical Care Time: The high probability of a clinically significant, sudden or life threatening deterioration of the patient's [] system(s) required my full and direct attention, intervention and personal management. The critical care time is as shown. This time is in addition to time spent performing any reported procedures but includes the following: [x] Data and vital sign review and interpretation [x] Patient assessment, examination and intervention [x] Documentation [x] Medication orders and management Critical Care Time (min): 60 Coding Level of Care Code Acute Tetryl Boiling Tub Operator for [facility] Fwd Exam Detailed Diagnoses ASHLEY (acute kidney injury) N17.9 Non-ST elevation [place] (NSTEMI) I21.4 CKD (chronic kidney disease) N18.9 Acute and chronic respiratory failure with hypoxia J96.21 Small cell lung cancer C34.90 Body mass index (BMI) of 40.1 to 44.9 in adult Z68.41 COPD (chronic obstructive pulmonary disease) J44.9 Mixed hyperlipidemia E78.2 Thrombocytopenia D69.6 Hyponatremia E87.1 Tumor lysis syndrome E88.3
[2022-07-23] MEDS: bumetanide 25 MG in empty flexible container 1 EACH 8 MG IV (16:34)
[2022-07-23 16:48] LABS: Partial Thromboplastin Time 37.5 SECONDS (23.9-36.7)
[2022-07-23 16:54] LABS: Fibrinogen 483 mg/dL (174-498)
[2022-07-23 16:58] LABS: D Dimer 4.47 ug/mIFEU (0-0.59)
[2022-07-23] MEDS: calcium chloride 10% Syr 10 mL 1 GM IVP (17:13)
--- NOTE | 2022-07-23 17:20 | PC.NURSE ---
NUrse has been titrating lasix up per protocol. Urine output has been zero even at max rate. Nurse alerted Dr padron. received orders to stop lasix and start bumex drip. Nurse bladder scanned patient to verify no urine. Bladder scan shows 15 mL retaining.
--- NOTE | 2022-07-23 17:21 | PC.NURSE ---
Patient is currently NPO. Too lthargic to safely drink, nurse offered oral swabs to moisten mouth, but patient refused.
--- NOTE | 2022-07-23 18:37 | PC.NURSE ---
SHift SUmary: Uneventful shift Patient stayed in bed throughout the day. Meantal status has declined, she can still answer all orientation questions correctly, but is much more lethargic. Urine output has been zero despite lasix and bumex drips. Currently on levophed and vasporessin.
[2022-07-23] MEDS: enoxaparin 100 mg/mL Syringe 83 MG SUBCUT (20:58)
--- NOTE | 2022-07-23 21:00 | PC.NURSE ---
Lovenox Patient's platelet count 51; 83 mg lovenox due at 1900. Dr. Woods contacted for verification of medication administration. Order received to continue doses as ordered. See MAR for details.
[2022-07-23] MEDS: fluconazole premix 200 MG/100 ML PREMIX 100 MG IV (21:30)
[2022-07-24] VITALS (62 sets, daily range): BP systolic 00–112; BP diastolic 0–77; PULSE 0–110; RESP 0–41; TEMP -17.7–36.5; O2SAT 0–96
[2022-07-24] MEDS: bumetanide 25 MG in empty flexible container 1 EACH 8 MG IV (00:59)
[2022-07-24] MEDS: piperacillin-tazobactam 3.375 GM in sodium chloride 0.9% (plus) 50 ML IV (01:27)
[2022-07-24] MEDS: hydrocortisone 100 mg/2 mL SDV 50 MG IVP ×2 (01:30→08:02)
--- NOTE | 2022-07-24 04:35 | PC.NURSE ---
Patient has rested well through the night on nasal cannula. Little to no urine output throughout the night with Bumex drip running at 8 mls/hr. HCP notified and instructed to leave dose as is for now. Patient has not had any bowel movements through the night. Remains AOx4 but unable to stay awake very long. Family stayed with patient.
[2022-07-24 04:56] LABS: Basophils % 0.6 %; Eosinophils % 0.2 %; Hematocrit 25.9 % (37.0-47.0); Hemoglobin 8.1 g/dL (11.5-15.3); Lymphocytes # 1.2 10^3/uL (0.8-4.8); Lymphocytes % 23.4 %; Mean Corpuscular HGB Conc 31.3 g/dL (30.0-36.0); Mean Corpuscular Hemoglobin 30.9 pg (28.0-34.0); Mean Corpuscular Volume 98.9 fl (81-99); Mean Platelet Volume 10.8 fL (7.4-10.4); Monocytes # 0.1 10^3/uL (0.2-0.9); Monocytes % 2.2 %; Neutrophils # 3.15 10^3/uL (1.8-7.7); Neutrophils % 62.5 %; Nucleated Red Blood Cells # 0.5 /100WBC; Nucleated Red Blood Cells % 9.3 %; Platelet Count 36 10^3/cmm (130-400); Red Blood Count 2.62 10^6/uL (4.1-5.3); Red Cell Distribution Width 14.6 % (12.1-15.1)
[2022-07-24 05:14] LABS: Alanine Aminotransferase 256 U/L (0-33); Albumin Level 3.1 g/dL (3.5-5.2); Alkaline Phosphatase 872 U/L (35-105); Anion Gap 21.8 (5-19); Aspartate Amino Transferase 460 U/L (0-32); Blood Urea Nitrogen 57 mg/dL (8-23); Calcium 7.4 mg/dL (8.5-10.5); Carbon Dioxide 24 mmol/L (22-29); Chloride 83 mmol/L (98-107); Globulin 2.3 g/dL (1.3-4.6); Glomerular Filtration Rate 10.3 mL/min (90-130); Glucose 182 mg/dL (65-115); Magnesium 2.2 mg/dL (1.7-2.3); Osmolality Calculated 278 mOsm/kg (285-295); Potassium 4.8 mmol/L (3.5-5.1); Sodium 124 mmol/L (136-145); Total Bilirubin 2.5 mg/dL (0.15-1.2); Total Protein 5.4 g/dL (6.6-8.7); Uric Acid 0.6 mg/dL (2.4-5.7)
[2022-07-24 05:37] LABS: Slide Review Slide Review Perform
[2022-07-24] MEDS: octreotide 500 MCG in sodium chloride 0.9% (100 ml) 100 ML 10.1 MCG IV (05:41)
[2022-07-24] MEDS: oxyCODONE-APAP 5-325 mg Tablet 1 TAB PO (05:52)
--- NOTE | 2022-07-24 06:44 | PC.NURSE ---
During patient care and rounding patient was found to have stool that appeared to have blood in it. Sample was taken and order for Fecal occult was received from HCP. Skin tear or lesion was found in the lower abdomen region approximately 1.5 by 1/4 . Optifoam dressing applied after site was cleaned.
[2022-07-24] MEDS: norepinephrine 8 MG in dextrose 5 % 500 ML 34.29 MG IV (07:48)
[2022-07-24] MEDS: budesonide 0.5 mg/2 mL Neb INHALATION (07:48)
[2022-07-24] MEDS: ipratropium-albuterol 3 mL Neb INHALATION (07:48)
--- NOTE | 2022-07-24 11:55 | P.PN_ITS ---
Subjective Subjective: Given the overall poor prognosis in light of her existing Co- morbid condition, and no improvement in overall status.Family has decided to make patient comfort care. Which is appropriate. Medications: Reviewed: Yes Medication Review Details: Generic Name Dose Route Start Last Admin Trade Name Freq PRN Reason Stop Dose Admin Oxycodone/Acetamin ophen 1 tab 07/23/22 08:14 07/24/22 05:52 Oxycodone-Apap 5 -325 Mg Tablet PO 1 tab Q4H PRN Administration MODERATE PAIN Vitals/I&O/Wt Last Vital Signs Temp 97.7 F 07/24/22 07:30 Pulse 108 H 07/24/22 10:00 Resp 38 H 07/24/22 10:00 BP 84/58 07/24/22 10:00 Pulse Ox 95 07/24/22 10:00 O2 Del Method 07/24/22 07:49 O2 Flow Rate 6 07/24/22 07:49 FiO2 40 07/23/22 13:00 07/23/22 07/24/22 07/24/22 22:59 06:59 14:59 Intake Total 3393.711 / 4808.447 639.312 / 5447.759 177.6 / 177.6 Output Total 25 / 25 Balance 3393.711 / 4808.447 614.312 / 5422.759 177.6 / 177.6 Weight last 48 hrs Weight 83.96 kg Physical Exam Const: COMMON NORMALS: patient oriented x3 Resp: COMMON NORMALS: normal respiratory effort, No retractions and No use of accessory muscles EFFORT & INSPECTION: Yes symmetric chest movement OTHER: Bilateral basal crackles, diminished entry bilaterally predominantly on the left side. Cardio: COMMON NORMALS: regular rate, regular rhythm, S1 normal heart sound present, S2 normal heart sound present, No gallops present (Cardio), No murmurs present (Cardio), No rub (Cardio) and Peripheral pulses 2+ throughout RATE: regular rate RHYTHM: regular rhythm HEART SOUNDS: S1 normal heart sound present and S2 normal heart sound present PERIPHERAL PULSES: Peripheral pulses 2+ throughout GI: COMMON NORMALS: Normal to inspection, nondistended, normoactive bowel sounds present, Soft to palpation, non-tender, No hepatosplenomegaly present and no masses AUSCULTATION: Yes normoactive bowel sounds PALPATION: Yes Soft to palpation and Yes No hepatosplenomegaly present RECTAL EXAM: deferred Extremity: COMMON NORMALS: no clubbing, cyanosis or edema and no pedal edema Neuro: COMMON NORMALS: patient oriented x3 Urinary Catheter Management: Pereira: Cath Placed During This Visit: yes Reason for Continuing Indwelling Catheter: Accurate Measurement of Urinary Output in Critically Ill Patients Urinary Catheter Date of Insertion: 07/22/22 Urinary Catheter Time of Insertion: 10:30 Data : 07/24/22 03:43 07/24/22 03:43 Micro: Microbiology 07/22/22 22:46 Urine Culture - Preliminary Urine,Clean Catch Gram positive cocci 07/24/22 06:10 Occult Blood (FIT) - Final Stool - Stool Aspirate 07/22/22 17:39 Blood Culture - Preliminary Blood NEGATIVE TO DATE 07/22/22 17:35 Blood Culture - Preliminary Blood NEGATIVE TO DATE A&P Assessment and plan (1) ASHLEY (acute kidney injury): Status: Acute (2) Non-ST elevation [place] (NSTEMI): Status: Acute (3) CKD (chronic kidney disease): Status: Acute (4) Acute and chronic respiratory failure with hypoxia: Status: Acute (5) Small cell lung cancer: Status: Acute (6) Body mass index (BMI) of 40.1 to 44.9 in adult: Status: Acute (7) COPD (chronic obstructive pulmonary disease): Status: Acute (8) Mixed hyperlipidemia: Status: Acute (9) Thrombocytopenia: Status: Acute (10) Hyponatremia: Status: Acute (11) Tumor lysis syndrome: Status: Acute Plan Acute hypoxic respiratory failure -Secondary to pneumonia -Secondary to recurrent left pleural effusion, malignant -Secondary to small cell lung cancer with metastasis -Possible pulmonary embolism - systolic CHF exacerbation Plan -Admit to ICU -Monitor respiratory status closely -BiPAP overnight -Continue Levophed to maintain MAP more than 65, has a family place -Broad-spectrum antibiotic therapy, vancomycin, Zosyn -Patient's sputum cultures during her last hospitalization showed stretomonas, which was martin resistant, patient has an allergy to sulfa, resistant to Levaquin -Sputum culture showed Kika, start fluconazole -Will follow sputum cultures, blood cultures, urine culture, obtain pleural cultures -DuoNeb treatments -Budesonide -Continue therapeutic Lovenox, monitor platelet count -Lasix 40 mg IV push every 24 hours, monitor urine output, monitor hemodynamics, will titrate based on clinical progress --full code -Lovenox for DVT prophylaxis Septic shock -Likely secondary to pneumonia -Continue Levophed, wean him off in the 65 Recurrent pleural effusion, cardiac echo, CT chest, pleural studies, pulmonary has been consulted Small cell lung cancer, with metastasis NSTEMI -Likely supply demand ischemia however cannot rule out underlying cardiac etiology -Serial EKGs serial troponins, telemetry monitoring -Cannot do a CT angiogram given elevated creatinine, will do venous ultrasound, has received therapeutic Lovenox Systolic CHF, elevated BNP, cardiac echo, Lasix Hyponatremia, likely secondary to the component of adrenal insufficiency, CHF, sepsis, monitor, nephrology has been consulted Status is critical Prognosis is guarded Family made aware of patient's critical status Attestations Medical Necessity Statement*: Patient is currently comfort care. Coding Level of Care Code Acute Circular Head Saw Operator for [facility] Diagnoses ASHLEY (acute kidney injury) N17.9 Non-ST elevation [place] (NSTEMI) I21.4 CKD (chronic kidney disease) N18.9 Acute and chronic respiratory failure with hypoxia J96.21 Small cell lung cancer C34.90 Body mass index (BMI) of 40.1 to 44.9 in adult Z68.41 COPD (chronic obstructive pulmonary disease) J44.9 Mixed hyperlipidemia E78.2 Thrombocytopenia D69.6 Hyponatremia E87.1 Tumor lysis syndrome E88.3
[2022-07-24] MEDS: morphine 4 mg/mL SDV 1 mL IVP (13:27)
--- NOTE | 2022-07-24 13:49 | PC.NURSE ---
Upon bedside rounding family discussed to place patient on comfort care measures to Dr. Chambers, at 0822 patient comfort care measures ordered on patient. Daughter requested to continue medications keeping mom's blood pressure up until other family members arrive at bedside. . This nurse discussed with Dr. Chambers and ICU Charge Nurse, JENNY and confirmed okay to maintain status until family arrives from [place]. As deterioration of condition occurred family requested to proceed with comfort care at this time.
--- NOTE | 2022-07-24 14:08 | PC.NURSE ---
Patient at 1408 family noted to be at bedside. This nurse verified by auscultating apical pulse for 60 seconds, no heartbeat confirmed. Family and Dr. Chambers notified. MTS called and notified, patient not a candidate for donation.
--- NOTE | 2022-07-24 14:17 | PM.DDS ---
Discharge Providers DDS Date of Admission: 07/22/22 22:00 Date Summary Completed: 07/24/22 Attending Provider at Admission: Hamilton Grimaldo Time of : 14:08 Attending Provider at Discharge: Milad Chambers MD Primary Care Provider: Tri Ludwig NP DS Diagnoses Hospital Diagnoses (1) ASHLEY (acute kidney injury): (2) Non-ST elevation LA (NSTEMI): (3) CKD (chronic kidney disease): (4) Acute and chronic respiratory failure with hypoxia: (5) Small cell lung cancer: (6) Body mass index (BMI) of 40.1 to 44.9 in adult: (7) COPD (chronic obstructive pulmonary disease): (8) Mixed hyperlipidemia: (9) Thrombocytopenia: (10) Hyponatremia: (11) Tumor lysis syndrome: Reason for Visit Reason for Visit lung cancer Summary Date and Time of Date of : 07/24/22 Time of : 14:08 Summary Summary: Edilma Langston is a 66 year old female with a past medical history COPD, chronic smoker, asthma, obesity, history of COVID-19, history of recurrent left pleural effusion status post Pleurx catheter, history of malignant pleural effusion, history of recently diagnosed small cell lung cancer of the left lung and pleura, mediastinum, liver, adrenal glands, bone, patient also has a right upper lobe nodular density consistent with second primary versus metastatic lesion, right breast nodular density versus right axillary location, history of systolic CHF, history of acute on chronic respiratory failure, who presents [facility] due to increasing relief fatigue, weakness, shortness of breath, cough, dizziness and low blood pressures. She was admitted for the management of septic shock with multiorgan failure likely secondary to pneumonia, NSTEMI type II, acute renal failure, acute on chronic respiratory failure with hypoxia, tumor lysis syndrome, she was kept on broad-spectrum antibiotics vasopressors, IV fluids, she also was kept on therapeutic anticoagulation, for NSTEMI, and possible PE. She was also managed for tumor lysis syndrome Given the fact that in the setting of acute renal failure, most appropriate management was dialysis, as she was oliguric, family was not willing to pursue dialysis, which was perfectly understandable given her significant advanced malignancy and overall poor prognosis, initially she was kept on Lasix drip and IV fluids, rasburicase was also used, but unfortunately renal function continued to worsen she did not responded to conservative medical management, she continued to worsen and was not responding to conservative medical management, family decided to make her comfort care, family wishes were honored, she on at 14:08 p.m., family was at bedside. Additional Data Advance directives?: No Discharge Plan Discharge Patient Disposition: Home Condition: Stable Prescriptions: Continued (DME) Rolator With Seat Discontinued omeprazole 40 mg capsule,delayed release(DR/EC) 40 mg PO DAILY 56 Days Qty: 60 0RF docusate sodium 100 mg capsule 100 mg PO DAILY levalbuterol HCl 0.63 mg/3 mL solution for nebulization 0.63 mg inhalation TID PRN (Reason: shortness of breath or wheezing) 30 Days Qty: 270 4RF budesonide [Pulmicort] 0.5 mg/2 mL suspension for nebulization 0.25 mg inhalation Q12H Qty: 60 0RF ezetimibe [Zetia] 10 mg tablet 10 mg PO DAILY rosuvastatin 40 mg tablet 40 mg PO BEDTIME levalbuterol tartrate 45 mcg/actuation HFA aerosol inhaler 2 puff INHALATION Q6H PRN (Reason: Shortness Of Breath) cholecalciferol (vitamin D3) 1,250 mcg (50,000 unit) Capsule 50,000 unit PO Q7D Rx Instructions: for 8 weeks then start 5,000 units daily ascorbic acid (vitamin C) [Vitamin C] 500 mg Tablet 500 mg PO DAILY Qty: 14 0RF zinc gluconate 50 mg Tablet 50 mg PO DAILY Qty: 14 0RF ferrous gluconate 324 mg (37.5 mg iron) Tablet 324 mg PO BIDWM Qty: 60 0RF ipratropium bromide 0.02 % solution 1.25 ml inhalation Q8H Qty: 75 0RF furosemide [Lasix] 20 mg tablet 20 mg PO DAILY 30 Days Qty: 30 3RF Referrals: Tri Ludwig NP [Primary Care Provider] - Patient Instructions: Opioid Safety DS Attestations Time Spent in /Discharge Care*: less than 30 min Quality - AMI: AMI present?: No Quality - Stroke: CVA present?: No Symptom Onset Unknown: No Quality - VTE: VTE present?: No Deep Vein Thrombosis/Pulmonary Embolism Present on Admission: No Coding Level of Care Code Acute Facsimile Machine Operator for Chg Fwd Diagnoses ASHLEY (acute kidney injury) N17.9 Non-ST elevation LA (NSTEMI) I21.4 CKD (chronic kidney disease) N18.9 Acute and chronic respiratory failure with hypoxia J96.21 Small cell lung cancer C34.90 Body mass index (BMI) of 40.1 to 44.9 in adult Z68.41 COPD (chronic obstructive pulmonary disease) J44.9 Mixed hyperlipidemia E78.2 Thrombocytopenia D69.6 Hyponatremia E87.1 Tumor lysis syndrome E88.3
--- NOTE | 2022-07-24 15:25 | PC.NURSE ---
Postmortem care completed. Mccreary drain, Pereira catheter, right port, right femoral line removed. Home called, transport noted to be on route to hospital.
== END 2022-07-24 14:08 | disposition expired | DRG 871 ==
LOC: ER 19:51 → ICU 21:33
PROVIDERS: Family Medicine; Internal Medicine Nephrology; Internal Medicine Pulmonary Disease; Admitting Provider Internal Medicine; Emergency Provider Emergency Medicine; PCP Nurse Practitioner Family; Visit Provider Internal Medicine
DX: A41.9 Sepsis, unspecified organism (principal); E88.3 Tumor lysis syndrome; I50.23 Acute on chronic systolic (congestive) heart failure; J18.9 Pneumonia, unspecified organism; R65.21 Severe sepsis with septic shock; I21.A1 Myocardial infarction type 2; J96.21 Acute and chronic respiratory failure with hypoxia; C34.82 Malignant neoplasm of overlapping sites of left bronchus and lung; C78.7 Secondary malignant neoplasm of liver and intrahepatic bile duct; C78.2 Secondary malignant neoplasm of pleura; C79.72 Secondary malignant neoplasm of left adrenal gland; C79.71 Secondary malignant neoplasm of right adrenal gland; C79.51 Secondary malignant neoplasm of bone; J44.0 Chronic obstructive pulmonary disease with (acute) lower respiratory infection; N17.9 Acute kidney failure, unspecified; E87.3 Alkalosis; E87.1 Hypo-osmolality and hyponatremia; B37.0 Candidal stomatitis; N39.0 Urinary tract infection, site not specified; J91.0 Malignant pleural effusion; E66.9 Obesity, unspecified; Z68.37 Body mass index [BMI] 37.0-37.9, adult; Z86.16 Personal history of COVID-19; F41.9 Anxiety disorder, unspecified; F32.A Depression, unspecified; K21.9 Gastro-esophageal reflux disease without esophagitis; Z86.14 Personal history of Methicillin resistant Staphylococcus aureus infection; E78.2 Mixed hyperlipidemia; Z87.891 Personal history of nicotine dependence; R68.0 Hypothermia, not associated with low environmental temperature; N18.9 Chronic kidney disease, unspecified; Z88.2 Allergy status to sulfonamides; Z51.5 Encounter for palliative care; Z66 Do not resuscitate; B95.2 Enterococcus as the cause of diseases classified elsewhere; D69.6 Thrombocytopenia, unspecified; D63.1 Anemia in chronic kidney disease
CPT/HCPCS: 36556; 36592; 36600; 51702; 71045; 71250; 74176; 76770; 76857; 80048; 80051; 80053; 81001; 82274; 82306; 82330; 82436; 82533; 82550; 82728; 82805; 83010; 83540; 83550; 83605; 83615; 83735; 83880; 84100; 84133; 84145; 84300; 84439; 84443; 84484; 84550; 85025; 85045; 85362; 85378; 85384; 85610; 85651; 85730; 86140; 86803; 87040; 87077; 87086; 87186; 87631; 87635; 93005; 93970; 94640; 94660; 96365; 96367; 96372; 96375; 96376; 99285; C1751; J0692; J1450; J1650; J1720; J1940; J2270; J2354; J2543; J2783; J2930; J3370; J3490; J7030; J7050; J7626; P9047; Q3014